=== PATIENT | female | born 1950 | race Caucasian/White ===

== ENCOUNTER 2017-05-22 10:00 | Outpatient (RCR) | payer MEDICARE, MEDICAID, SELFPAY ==
[2017-05-14 11:11] VITALS: BP 106/68; PULSE 79; RESP 18; TEMP 35.5; BMI 67.5
--- NOTE | 2017-05-14 15:19 | HP.PCM_ITS ---
(1) Cellulitis of leg, right Status: Chronic Code(s): L03.115 - CELLULITIS OF RIGHT LOWER LIMB (2) Sepsis Status: Resolved Code(s): A41.9 - SEPSIS, UNSPECIFIED ORGANISM (3) Benign hypertension Status: Chronic Code(s): I10 - ESSENTIAL (PRIMARY) HYPERTENSION (4) Diabetes mellitus Status: Chronic Code(s): E11.9 - TYPE 2 DIABETES MELLITUS WITHOUT COMPLICATIONS (5) HLD (hyperlipidemia) Status: Chronic Code(s): E78.5 - HYPERLIPIDEMIA, UNSPECIFIED (6) History of DVT of lower extremity Status: Chronic Code(s): Z86.718 - PERSONAL HISTORY OF OTHER VENOUS THROMBOSIS AND EMBOLISM (7) History of pulmonary embolism Status: Chronic Code(s): Z86.711 - PERSONAL HISTORY OF PULMONARY EMBOLISM (8) Hypothyroidism Status: Chronic Code(s): E03.9 - HYPOTHYROIDISM, UNSPECIFIED (9) Morbid obesity Status: Chronic Code(s): E66.01 - MORBID (SEVERE) OBESITY DUE TO EXCESS CALORIES History of Present Illness Date of Service: 05/21/17 Chief Complaint: Right lower extremity ulcer and cellulitis. History of Wound: Ms. Berrios is a 66-year-old who was referred here and is status post inpatient management for right lower extremity cellulitis and ulcer. She reports being in a stable state of health until about 2 weeks ago when she noted a blister in her right lower extremity and had been following up with her resource specialist teacher. However, it subsequently ruptured and she noted onset of chills, fever for which she was seen in the ER and subsequently hospitalized. She has done well since hospital discharge. She denies chills, fever, nausea, vomiting or foul-smelling discharge from the right lower extremity. She has home health care. She has bilateral lower extremity edema or and has a lymphedema pump however she has not been using this consistently recently. She has a history of diabetes however, she states good control of her blood sugars. Last A1c per patient was 6.1 and this was within the month. Past Medical History Past Medical History: Chronic Problems Benign hypertension (Chronic) Cellulitis of leg, right (Chronic) Chronic Lymphedema (Chronic) Diabetes mellitus (Chronic) GERD (gastroesophageal reflux disease) (Chronic) HLD (hyperlipidemia) (Chronic) History of DVT of lower extremity (Chronic) History of pulmonary embolism (Chronic) Hypothyroidism (Chronic) Morbid obesity (Chronic) Surgical History: appendectomy, hysterectomy, tonsillectomy Allergies/Adverse Reactions: Allergies No Known Allergies Allergy (Verified 05/04/17 18:17) Home Medications: Ambulatory Orders Medication Instructions Recorded Atorvastatin Calcium [Lipitor] 20 mg PO DAILY 09/18/14 Famotidine [Pepcid] 20 mg PO BID 09/18/14 Hydrocodone/Acetaminophen 1 each PO Q8H PRN PRN 09/18/14 [Hydrocodon-Acetaminophen 5-325] Levothyroxine Sodium [Levoxyl] 100 mcg PO DAILY 09/18/14 Lisinopril [Zestril] 20 mg PO DAILY 09/18/14 Metformin HCl [Glucophage] 500 mg PO BIDCM 09/18/14 Warfarin [Coumadin] 2 mg PO DAILY 09/18/14 Furosemide 60 mg PO DAILY 03/21/16 Gabapentin [Neurontin] 300 mg PO QHS 09/29/16 Collagenase [Santyl] 1 applic TOPICAL DAILY 05/04/17 Levofloxacin [Levaquin] 750 mg PO DAILY@0600 #5 tablet 05/08/17 Magnesium Oxide [Mag-Ox 400] 400 mg PO BIDCM tablet 05/08/17 - Family History Maternal Diabetes Paternal Diabetes Smoking Status: Never smoker Review of Systems Eyes: Denies: Pain, Redness HEENT: Denies: Difficulty Swallowing, Ear Pain, Eye Pain, Head Aches Cardiovascular: Denies: Chest Pain, Chest Pressure, Chest Tightness Respiratory: Denies: Cough, Hemoptysis, Pleuritic Pain Gastrointestinal: Denies: Abdominal Pain, Hematemesis, Nausea, Vomiting Skin: Reports: Wounds Neurological: Denies: Confusion, Difficulty swallowing, Focal weakness - Physical Exam Vital Signs Temp Pulse Resp BP Pulse Ox 95.9 F 79 18 106/68 05/14/17 11:11 05/14/17 11:11 05/14/17 11:11 05/14/17 11:11 General: Alert, Oriented x3, Cooperative, No apparent distress HEENT: Atraumatic, Normocephalic Oral: Dry Mucosa Neck: Supple, No Nodes Lungs: Clear to auscultation, Normal air movement Cardiovascular: Regular rate, Regular Rhythm, Normal S1, Normal S2 Abdomen: Soft, Non Tender, Obese Extremities: No clubbing, No cyanosis, Edema Skin: Ulcer/ Wound Wound Measurements and Assessment WC - Nurse 1 - General Ulcer Measurement Start: 05/14/17 11:08 Freq: Status: Active Activity Type Activity Date Activity User E-Sign Co-Sign Detail Recorded Client Recorded Date Recorded By Document 05/14/17 11:11 JT [id number] 05/14/17 11:34 JT 05/14/17 11:11 Wound Center Nurse 1 [Ulcer Assessment] #1 Posterior RLE Cluster -Combined with other wound No -Current Size (cm) - Length 3 -Current Size (cm) - Width 3.8 -Current Size (cm) - Depth 0.3 -Total Square Cm 11.4 -Date of Last Picture (Recall this 05/14/17 field) -Photo Taken Yes -Epithelialization None Present -Tunneling No -Undermining/Tunneling No -Circular Undermining No -Classification - Thickness Partial Thickness -Exudate Amt None Present (0 %) -Wound Margin Distinct, Outline Attached -Granulation Amt None Present (0 %) -Slough/Fibrin Yes -Necrosis Amt Large (67-100%) -Necrotic Tissue Type Adherent Slough -Structure Exposed N/A -Texture (Nettie-wound Skin Appearance) No Abnormality -Moisture (Nettie-wound Skin Appearance Dry/Scaly ) -Color (Nettie-wound Skin Appearance) Hemosiderin Staining -Temperature (Nettie-wound Skin No Abnormality Appearance) (Pt Warm) -Tenderness on Palpation (Nettie-wound No Skin Appearance) -Ulcer Cleansing Rinsed/ Irrigated with Saline -Foul Odor after Cleansing No -Anesthetic Used 4% Lidocaine Solution [Edema Assessment] -Lower Limb Edema Present Yes -Right Calf (cm) 83 -Right Ankle (cm) 45 -Left Calf (cm) 87 -Left Ankle (cm) 41 - Nurse 2 - General Ulcer CM Notes Start: 05/14/17 11:08 Freq: Status: Active Activity Type Activity Date Activity User E-Sign Co-Sign Detail Recorded Client Recorded Date Recorded By Document 05/14/17 12:13 DV [id number] 05/14/17 12:28 DV 05/14/17 12:13 Wound Center Nurse 2 [Procedure/Treatment] #1 Posterior RLE Cluster -Time 12:14 -Correct Patient Yes -Correct Side, Site, Position Yes -Correct Procedure Yes -Procedure Performed Yes -Type of Procedure Debridement -Clinical Debridement Subcutaneous -Post Debridement Size (cm) - Length 6.4 -Post Debridement Size (cm) - Width 3.2 -Post Debridement Size (cm) - Depth 0.5 -Total Square Cm 20.48 -Wound/Ulcer Outcome Not Healed -Ulcer Cleansing Rinsed/ Irrigated with Saline -Foul Odor after Cleansing No -Bioengineered Tissue No -Cetacaine [place] No -Bleeding Controlled with Pressure -Treatment Response Procedure Tolerated Well [See Physician Procedure note for Specifics] Pain Scale: 0-10 Numeric [Pain] -Is Patient Pain Free? Yes Debridement Note Post-Debridement Measurements/Treatment WC - Nurse 2 - General Ulcer CM Notes Start: 05/14/17 11:08 Freq: Status: Active Activity Type Activity Date Activity User E-Sign Co-Sign Detail Recorded Client Recorded Date Recorded By Document 05/14/17 12:13 DV [id number] 05/14/17 12:28 DV 05/14/17 12:13 Wound Center Nurse 2 #1 Posterior RLE Cluster -Time 12:14 -Correct Patient Yes -Correct Side, Site, Position Yes -Correct Procedure Yes -Procedure Performed Yes -Type of Procedure Debridement -Clinical Debridement Subcutaneous -Post Debridement Size (cm) - Length 6.4 -Post Debridement Size (cm) - Width 3.2 -Post Debridement Size (cm) - Depth 0.5 -Total Square Cm 20.48 -Wound/Ulcer Outcome Not Healed -Ulcer Cleansing Rinsed/ Irrigated with Saline -Foul Odor after Cleansing No -Bioengineered Tissue No -Cetacaine [place] No -Bleeding Controlled with Pressure -Treatment Response Procedure Tolerated Well Pain Scale: 0-10 Numeric Is Patient Pain Free? Yes Laterality: Right Type of Debridement: Excisional debridement Anesthesia Used: 4% Lidocaine Solution Depth: Down to and including healthy tissue, in the subcutaneous layer Percentage of wound debrided: 100 Instrument Used: 7mm curette Amount of bleeding with debridement: Mild Bleeding Controlled with: Pressure Patient tolerated procedure well Assessment/Plan Assessment: Right lower extremity cluster ulcers secondary to chronic stasis dermatitis. Plan: Wound was debrided using the 7 mm curette. Procedure was well-tolerated with minimal bleeding. Culture was obtained however I do not expect much as patient has just completed both inpatient and outpatient antibiotic therapy. Plan is for enzymatic debridement with Santyl daily with Adaptic covering. Patient encouraged to use her lymphedema pumps at least twice daily for 1 hour each. Elevate lower extremity. Protein rich diet. Continued glycemic control. Follow-up in 1 week.
[2017-05-22 09:39] VITALS: BP 117/63; PULSE 85; RESP 18; TEMP 36.5; BMI 67.5
--- NOTE | 2017-05-22 18:56 | PCM.WC.PN ---
(1) Cellulitis of leg, right Status: Chronic Code(s): L03.115 - Cellulitis of right lower limb (2) Diabetes mellitus Status: Chronic Code(s): E11.9 - Type 2 diabetes mellitus without complications (3) Hypothyroidism Status: Chronic Code(s): E03.9 - Hypothyroidism, unspecified (4) Morbid obesity Status: Chronic Code(s): E66.01 - Morbid (severe) obesity due to excess calories (5) Venous stasis ulcer of right lower leg with edema of right lower leg Status: Chronic Code(s): I83.891 - Varicose veins of right lower extremity with other complications; I83.018 - Varicose veins of right lower extremity with ulcer other part of lower leg; R60.9 - Edema, unspecified (6) Lymphedema of both lower extremities Status: Chronic Code(s): I89.0 - Lymphedema, not elsewhere classified Type of Wound Date of Service: 05/28/17 Chief Complaint: Right lower extremity ulcer and cellulitis. History of Wound: Ms. Berrios is a 66-year-old who was referred here and is status post inpatient management for right lower extremity cellulitis and ulcer. She reports being in a stable state of health until about 2 weeks ago when she noted a blister in her right lower extremity and had been following up with her satellite dish technician. However, it subsequently ruptured and she noted onset of chills, fever for which she was seen in the ER and subsequently hospitalized. She has done well since hospital discharge. She denies chills, fever, nausea, vomiting or foul-smelling discharge from the right lower extremity. She has home health care. She has bilateral lower extremity edema or and has a lymphedema pump however she has not been using this consistently recently. She has a history of diabetes however, she states good control of her blood sugars. Last A1c per patient was 6.1 and this was within the month. Progress of Wound: Stable. No new complaints at this time. - Physical Exam Vital Signs Temp Pulse Resp BP Pulse Ox 97.7 F 85 18 117/63 05/22/17 09:39 05/22/17 09:39 05/22/17 09:39 05/22/17 09:39 General: Alert, Oriented x3, Cooperative, No apparent distress HEENT: Atraumatic, Normocephalic Oral: Moist Mucosa Neck: Supple, No Nodes, No Nuchal Rigidity Lungs: Clear to auscultation, Normal air movement Cardiovascular: Regular rate, Regular Rhythm, Normal S1, Normal S2 Abdomen: Soft, Obese Extremities: No cyanosis, Edema Wound Measurements and Assessment WC - Nurse 1 - General Ulcer Measurement Start: 05/14/17 11:08 Freq: Status: Active Activity Type Activity Date Activity User E-Sign Co-Sign Detail Recorded Client Recorded Date Recorded By Document 05/22/17 09:39 DL [id number] 05/22/17 09:51 DL 05/22/17 09:39 Wound Center Nurse 1 [Ulcer Assessment] #1 Posterior RLE Cluster -Combined with other wound No -Current Size (cm) - Length 3.8 -Current Size (cm) - Width 3.6 -Current Size (cm) - Depth 0.5 -Total Square Cm 13.68 -Photo Taken No -Epithelialization None Present -Tunneling No -Undermining/Tunneling No -Circular Undermining No -Classification - Thickness Full Thickness without Exposed Support Structure -Exudate Amt Small (1-33%) -Exudate Type Serosanguineous -Wound Margin Distinct, Outline Attached -Granulation Amt None Present (0 %) -Granulation Quality N/A -Slough/Fibrin Yes -Necrosis Amt Large (67-100%) -Necrotic Tissue Type Adherent Slough -Structure Exposed Fascia Fat Layer Exposed -Texture (Nettie-wound Skin Appearance) Localized Edema Scarring -Moisture (Nettie-wound Skin Appearance No Abnormality ) -Color (Nettie-wound Skin Appearance) Erythema Hemosiderin Staining -Temperature (Nettie-wound Skin No Abnormality Appearance) (Pt Warm) -Tenderness on Palpation (Nettie-wound No Skin Appearance) -Ulcer Cleansing Rinsed/ Irrigated with Saline -Foul Odor after Cleansing No -Anesthetic Used 4% Lidocaine Solution [Edema Assessment] -Lower Limb Edema Present Yes -Right Calf (cm) 82.0 -Right Ankle (cm) 32.5 -Left Calf (cm) 89.0 -Left Ankle (cm) 39.5 WC - Nurse 2 - General Ulcer CM Notes Start: 05/14/17 11:08 Freq: Status: Active Activity Type Activity Date Activity User E-Sign Co-Sign Detail Recorded Client Recorded Date Recorded By Document 05/22/17 11:55 DV [id number] 05/22/17 12:00 DV 05/22/17 11:55 Wound Center Nurse 2 [Procedure/Treatment] #1 Posterior RLE Cluster -Time 11:56 -Correct Patient Yes -Correct Side, Site, Position Yes -Correct Procedure Yes -Procedure Performed Yes -Type of Procedure Debridement -Clinical Debridement Subcutaneous -Post Debridement Size (cm) - Length 5.0 -Post Debridement Size (cm) - Width 5.5 -Post Debridement Size (cm) - Depth 0.3 -Total Square Cm 27.50 -Wound/Ulcer Outcome Failed Graft -Ulcer Cleansing Rinsed/ Irrigated with Saline -Foul Odor after Cleansing No -Bioengineered Tissue No -Cetacaine [place] No -Bleeding Controlled with Pressure -Treatment Response Procedure Tolerated Well [See Physician Procedure note for Specifics] Pain Scale: 0-10 Numeric [Pain] -Is Patient Pain Free? Yes Neurological: Cranial nerves II-XII grossly intact, Neuro grossly intact Debridement Note Post-Debridement Measurements/Treatment WC - Nurse 2 - General Ulcer CM Notes Start: 05/14/17 11:08 Freq: Status: Active Activity Type Activity Date Activity User E-Sign Co-Sign Detail Recorded Client Recorded Date Recorded By Document 05/22/17 11:55 DV [id number] 05/22/17 12:00 DV 05/22/17 11:55 Wound Center Nurse 2 #1 Posterior E Cluster -Time 11:56 -Correct Patient Yes -Correct Side, Site, Position Yes -Correct Procedure Yes -Procedure Performed Yes -Type of Procedure Debridement -Clinical Debridement Subcutaneous -Post Debridement Size (cm) - Length 5.0 -Post Debridement Size (cm) - Width 5.5 -Post Debridement Size (cm) - Depth 0.3 -Total Square Cm 27.50 -Wound/Ulcer Outcome Failed Graft -Ulcer Cleansing Rinsed/ Irrigated with Saline -Foul Odor after Cleansing No -Bioengineered Tissue No -Cetacaine [place] No -Bleeding Controlled with Pressure -Treatment Response Procedure Tolerated Well Pain Scale: 0-10 Numeric Is Patient Pain Free? Yes Wound debrided: Right lower extremity venous stasis ulcer Type of Debridement: Excisional debridement Anesthesia Used: 5% Lidocaine Gel Depth: Down to and including healthy tissue, in the subcutaneous layer Percentage of wound debrided: 100 Instrument Used: 5mm curette Tissue Removed: Slough Amount of bleeding with debridement: Mild Bleeding Controlled with: Pressure Patient tolerated procedure well Assessment/Plan Assessment: Right lower extremity cluster ulcers secondary to chronic stasis dermatitis. Plan: Wound was debrided using the 5 mm curette. Procedure was well-tolerated with minimal bleeding. Culture from last visit was reviewed. No growth. Plan is to continue enzymatic debridement with Santyl daily with Adaptic covering. No graft application anticipated yet. Patient encouraged to use her lymphedema pumps at least twice daily for 1 hour each. Elevate lower extremity. Protein rich diet. Continued glycemic control. Follow-up in 1 week.
--- NOTE | 2017-05-22 19:02 | PN.PCM_ITS ---
(1) Cellulitis of leg, right Status: Chronic Code(s): L03.115 - Cellulitis of right lower limb (2) Diabetes mellitus Status: Chronic Code(s): E11.9 - Type 2 diabetes mellitus without complications (3) Hypothyroidism Status: Chronic Code(s): E03.9 - Hypothyroidism, unspecified (4) Morbid obesity Status: Chronic Code(s): E66.01 - Morbid (severe) obesity due to excess calories (5) Venous stasis ulcer of right lower leg with edema of right lower leg Status: Chronic Code(s): I83.891 - Varicose veins of right lower extremity with other complications; I83.018 - Varicose veins of right lower extremity with ulcer other part of lower leg; R60.9 - Edema, unspecified (6) Lymphedema of both lower extremities Status: Chronic Code(s): I89.0 - Lymphedema, not elsewhere classified Type of Wound Date of Service: 05/28/17 Chief Complaint: Right lower extremity ulcer and cellulitis. History of Wound: Ms. Berrios is a 66-year-old who was referred here and is status post inpatient management for right lower extremity cellulitis and ulcer. She reports being in a stable state of health until about 2 weeks ago when she noted a blister in her right lower extremity and had been following up with her music director. However, it subsequently ruptured and she noted onset of chills, fever for which she was seen in the ER and subsequently hospitalized. She has done well since hospital discharge. She denies chills, fever, nausea, vomiting or foul-smelling discharge from the right lower extremity. She has home health care. She has bilateral lower extremity edema or and has a lymphedema pump however she has not been using this consistently recently. She has a history of diabetes however, she states good control of her blood sugars. Last A1c per patient was 6.1 and this was within the month. Progress of Wound: Stable. No new complaints at this time. - Physical Exam Vital Signs Temp Pulse Resp BP Pulse Ox 97.7 F 85 18 117/63 05/22/17 09:39 05/22/17 09:39 05/22/17 09:39 05/22/17 09:39 General: Alert, Oriented x3, Cooperative, No apparent distress HEENT: Atraumatic, Normocephalic Oral: Moist Mucosa Neck: Supple, No Nodes, No Nuchal Rigidity Lungs: Clear to auscultation, Normal air movement Cardiovascular: Regular rate, Regular Rhythm, Normal S1, Normal S2 Abdomen: Soft, Obese Extremities: No cyanosis, Edema Wound Measurements and Assessment WC - Nurse 1 - General Ulcer Measurement Start: 05/14/17 11:08 Freq: Status: Active Activity Type Activity Date Activity User E-Sign Co-Sign Detail Recorded Client Recorded Date Recorded By Document 05/22/17 09:39 DL [id number] 05/22/17 09:51 DL 05/22/17 09:39 Wound Center Nurse 1 [Ulcer Assessment] #1 Posterior RLE Cluster -Combined with other wound No -Current Size (cm) - Length 3.8 -Current Size (cm) - Width 3.6 -Current Size (cm) - Depth 0.5 -Total Square Cm 13.68 -Photo Taken No -Epithelialization None Present -Tunneling No -Undermining/Tunneling No -Circular Undermining No -Classification - Thickness Full Thickness without Exposed Support Structure -Exudate Amt Small (1-33%) -Exudate Type Serosanguineous -Wound Margin Distinct, Outline Attached -Granulation Amt None Present (0 %) -Granulation Quality N/A -Slough/Fibrin Yes -Necrosis Amt Large (67-100%) -Necrotic Tissue Type Adherent Slough -Structure Exposed Fascia Fat Layer Exposed -Texture (Nettie-wound Skin Appearance) Localized Edema Scarring -Moisture (Nettie-wound Skin Appearance No Abnormality ) -Color (Nettie-wound Skin Appearance) Erythema Hemosiderin Staining -Temperature (Nettie-wound Skin No Abnormality Appearance) (Pt Warm) -Tenderness on Palpation (Nettie-wound No Skin Appearance) -Ulcer Cleansing Rinsed/ Irrigated with Saline -Foul Odor after Cleansing No -Anesthetic Used 4% Lidocaine Solution [Edema Assessment] -Lower Limb Edema Present Yes -Right Calf (cm) 82.0 -Right Ankle (cm) 32.5 -Left Calf (cm) 89.0 -Left Ankle (cm) 39.5 WC - Nurse 2 - General Ulcer CM Notes Start: 05/14/17 11:08 Freq: Status: Active Activity Type Activity Date Activity User E-Sign Co-Sign Detail Recorded Client Recorded Date Recorded By Document 05/22/17 11:55 DV [id number] 05/22/17 12:00 DV 05/22/17 11:55 Wound Center Nurse 2 [Procedure/Treatment] #1 Posterior RLE Cluster -Time 11:56 -Correct Patient Yes -Correct Side, Site, Position Yes -Correct Procedure Yes -Procedure Performed Yes -Type of Procedure Debridement -Clinical Debridement Subcutaneous -Post Debridement Size (cm) - Length 5.0 -Post Debridement Size (cm) - Width 5.5 -Post Debridement Size (cm) - Depth 0.3 -Total Square Cm 27.50 -Wound/Ulcer Outcome Failed Graft -Ulcer Cleansing Rinsed/ Irrigated with Saline -Foul Odor after Cleansing No -Bioengineered Tissue No -Cetacaine [place] No -Bleeding Controlled with Pressure -Treatment Response Procedure Tolerated Well [See Physician Procedure note for Specifics] Pain Scale: 0-10 Numeric [Pain] -Is Patient Pain Free? Yes Neurological: Cranial nerves II-XII grossly intact, Neuro grossly intact Debridement Note Post-Debridement Measurements/Treatment WC - Nurse 2 - General Ulcer CM Notes Start: 05/14/17 11:08 Freq: Status: Active Activity Type Activity Date Activity User E-Sign Co-Sign Detail Recorded Client Recorded Date Recorded By Document 05/22/17 11:55 DV [id number] 05/22/17 12:00 DV 05/22/17 11:55 Wound Center Nurse 2 #1 Posterior E Cluster -Time 11:56 -Correct Patient Yes -Correct Side, Site, Position Yes -Correct Procedure Yes -Procedure Performed Yes -Type of Procedure Debridement -Clinical Debridement Subcutaneous -Post Debridement Size (cm) - Length 5.0 -Post Debridement Size (cm) - Width 5.5 -Post Debridement Size (cm) - Depth 0.3 -Total Square Cm 27.50 -Wound/Ulcer Outcome Failed Graft -Ulcer Cleansing Rinsed/ Irrigated with Saline -Foul Odor after Cleansing No -Bioengineered Tissue No -Cetacaine [place] No -Bleeding Controlled with Pressure -Treatment Response Procedure Tolerated Well Pain Scale: 0-10 Numeric Is Patient Pain Free? Yes Wound debrided: Right lower extremity venous stasis ulcer Type of Debridement: Excisional debridement Anesthesia Used: 5% Lidocaine Gel Depth: Down to and including healthy tissue, in the subcutaneous layer Percentage of wound debrided: 100 Instrument Used: 5mm curette Tissue Removed: Slough Amount of bleeding with debridement: Mild Bleeding Controlled with: Pressure Patient tolerated procedure well Assessment/Plan Assessment: Right lower extremity cluster ulcers secondary to chronic stasis dermatitis. Plan: Wound was debrided using the 5 mm curette. Procedure was well-tolerated with minimal bleeding. Culture from last visit was reviewed. No growth. Plan is to continue enzymatic debridement with Santyl daily with Adaptic covering. No graft application anticipated yet. Patient encouraged to use her lymphedema pumps at least twice daily for 1 hour each. Elevate lower extremity. Protein rich diet. Continued glycemic control. Follow-up in 1 week.
== END 2017-05-22 23:59 ==
LOC: WC 10:00
PROVIDERS: Family Provider Internal Medicine; PCP Internal Medicine; Visit Provider Internal Medicine
DX: E11.622 Type 2 diabetes mellitus with other skin ulcer (principal); I10 Essential (primary) hypertension; L97.812 Non-pressure chronic ulcer of other part of right lower leg with fat layer exposed; I83.018 Varicose veins of right lower extremity with ulcer other part of lower leg; E78.5 Hyperlipidemia, unspecified; E66.01 Morbid (severe) obesity due to excess calories; K21.9 Gastro-esophageal reflux disease without esophagitis; I89.0 Lymphedema, not elsewhere classified; Z86.711 Personal history of pulmonary embolism; Z86.718 Personal history of other venous thrombosis and embolism; Z68.44 Body mass index [BMI] 60.0-69.9, adult; Z71.3 Dietary counseling and surveillance; Z79.899 Other long term (current) drug therapy
CPT/HCPCS: 11042; 11045; 87070; 87075; 87205; 97602; 99213; G0463

== ENCOUNTER 2017-06-19 12:00 | Outpatient (RCR) | payer MEDICARE, MEDICAID, SELFPAY ==
[2017-05-25 01:12] VITALS: BP 117/63; PULSE 85; RESP 18; TEMP 36.5; BMI 67.5
[2017-05-29 10:19] VITALS: BP 143/68; PULSE 82; RESP 20; TEMP 36.4; BMI 67.5
--- NOTE | 2017-05-29 17:14 | PCM.WC.PN ---
(1) Venous stasis ulcer of left lower leg with edema of left lower leg Status: Chronic Current Visit: Yes Code(s): I83.892 - Varicose veins of left lower extremity with other complications; I83.028 - Varicose veins of left lower extremity with ulcer other part of lower leg; R60.9 - Edema, unspecified (2) Chronic Lymphedema Status: Chronic Current Visit: Yes (3) Diabetes mellitus Status: Chronic Current Visit: Yes Code(s): E11.9 - Type 2 diabetes mellitus without complications (4) Morbid obesity Status: Chronic Current Visit: Yes Code(s): E66.01 - Morbid (severe) obesity due to excess calories (5) Venous stasis ulcer of right lower leg with edema of right lower leg Status: Chronic Current Visit: Yes Code(s): I83.891 - Varicose veins of right lower extremity with other complications; I83.018 - Varicose veins of right lower extremity with ulcer other part of lower leg; R60.9 - Edema, unspecified (6) Unspecified open wound, left thigh, initial encounter Status: Acute Current Visit: Yes Code(s): S71.102A - Unspecified open wound, left thigh, initial encounter Type of Wound Date of Service: 05/30/17 Chief Complaint: Right lower extremity ulcer and cellulitis. History of Wound: Ms. Berrios is a 66-year-old who was referred here and is status post inpatient management for right lower extremity cellulitis and ulcer. 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 However, it subsequently ruptured and she noted onset of chills, fever for which she was seen in the ER and subsequently hospitalized. She has done well since hospital discharge. She denies chills, fever, nausea, vomiting or foul-smelling discharge from the right lower extremity. She has home health care. She has bilateral lower extremity edema or and has a lymphedema pump however she has not been using this consistently recently. She has a history of diabetes however, she states good control of her blood sugars. Last A1c per patient was 6.1 and this was within the month. Progress of Wound: She is here for management of her chronic bilateral stasis dermatitis ulcers however, she presents with a new right thigh wound. She states she sustained a burn after she dropped a hard object on her thigh. She has done nothing to the wound since sustaining it. She feels well otherwise and denies any other complaints at this time. - Physical Exam Vital Signs Temp Pulse Resp BP 97.5 F L 82 20 H 143/68 H 05/29/17 10:19 05/29/17 10:19 05/29/17 10:19 05/29/17 10:19 General: Alert, Oriented x3, Cooperative, No apparent distress HEENT: Atraumatic Oral: Moist Mucosa Neck: Supple, No JVD Lungs: Normal air movement Cardiovascular: Regular rate Abdomen: Soft Extremities: No cyanosis, Edema Wound Measurements and Assessment WC - Nurse 1 - General Ulcer Measurement Start: 05/29/17 10:14 Freq: Status: Active Protocol: Activity Type Activity Date Activity User E-Sign Co-Sign Detail Recorded Client Recorded Date Recorded By Document 05/29/17 10:19 [facility] [id number] 05/29/17 10:26 [facility] 05/29/17 10:19 Wound Center Nurse 1 [Ulcer Assessment Protocol: WC.WD.LOC] #3- LT MEDIAL LOWER LEG -Combined with other wound No -Current Size (cm) - Length 1 -Current Size (cm) - Width 1.6 -Current Size (cm) - Depth 0.1 -Total Square Cm 1.6 -Date of Last Picture (Recall this 05/29/17 field) -Photo Taken Yes -Epithelialization None Present -Tunneling No -Undermining/Tunneling No -Exudate Amt None Present (0 %) -Wound Margin Distinct, Outline Attached -Granulation Amt None Present (0 %) -Necrosis Amt Large (67-100%) -Necrotic Tissue Type Adherent Slough -Structure Exposed N/A -Texture (Nettie-wound Skin Appearance) Scarring -Moisture (Nettie-wound Skin Appearance Dry/Scaly ) -Color (Nettie-wound Skin Appearance) Hemosiderin Staining -Temperature (Nettie-wound Skin No Abnormality Appearance) (Pt Warm) -Tenderness on Palpation (Nettie-wound No Skin Appearance) -Ulcer Cleansing Rinsed/ Irrigated with Saline -Foul Odor after Cleansing No -Anesthetic Used 4% Lidocaine Solution #2- RT THIGH (POST BURN W/ HOT WATER) -Combined with other wound No -Current Size (cm) - Length 3 -Current Size (cm) - Width 1.6 -Current Size (cm) - Depth 0.1 -Total Square Cm 4.8 -Date of Last Picture (Recall this 05/29/17 field) -Photo Taken Yes -Epithelialization None Present -Tunneling No -Undermining/Tunneling No -Exudate Amt None Present (0 %) -Wound Margin Distinct, Outline Attached -Granulation Amt None Present (0 %) -Slough/Fibrin Yes -Necrosis Amt Large (67-100%) -Necrotic Tissue Type Adherent Slough -Structure Exposed N/A -Texture (Nettie-wound Skin Appearance) Scarring -Moisture (Nettie-wound Skin Appearance Assessed ) -Color (Nettie-wound Skin Appearance) Erythema -Temperature (Nettie-wound Skin No Abnormality Appearance) (Pt Warm) -Tenderness on Palpation (Nettie-wound No Skin Appearance) -Ulcer Cleansing Rinsed/ Irrigated with Saline -Foul Odor after Cleansing No -Anesthetic Used 4% Lidocaine Solution #1 Posterior RLE Cluster -Combined with other wound No -Current Size (cm) - Length 3.9 -Current Size (cm) - Width 3.2 -Current Size (cm) - Depth 0.5 -Total Square Cm 12.48 -Photo Taken No -Tunneling No -Undermining/Tunneling No -Exudate Amt None Present (0 %) -Wound Margin Distinct, Outline Attached -Granulation Amt Small (1-33%) -Granulation Quality [place] -Slough/Fibrin Yes -Necrosis Amt Large (67-100%) -Necrotic Tissue Type Adherent Slough -Structure Exposed N/A -Texture (Nettie-wound Skin Appearance) Scarring -Moisture (Nettie-wound Skin Appearance Dry/Scaly ) -Color (Nettie-wound Skin Appearance) Hemosiderin Staining -Temperature (Nettie-wound Skin No Abnormality Appearance) (Pt Warm) -Tenderness on Palpation (Nettie-wound No Skin Appearance) -Ulcer Cleansing Rinsed/ Irrigated with Saline -Foul Odor after Cleansing No -Anesthetic Used 4% Lidocaine Solution [Edema Assessment] -Lower Limb Edema Present Yes -Right Calf (cm) 82 -Right Ankle (cm) 37 -Left Calf (cm) 90 -Left Ankle (cm) 38 WC - Nurse 2 - General Ulcer CM Notes Start: 05/29/17 10:14 Freq: Status: Active Protocol: Activity Type Activity Date Activity User E-Sign Co-Sign Detail Recorded Client Recorded Date Recorded By Document 05/29/17 11:46 DV [id number] 05/29/17 11:53 DV 05/29/17 11:46 Wound Center Nurse 2 [Procedure/Treatment] #3- LT MEDIAL LOWER LEG -Time 11:47 -Correct Patient Yes -Correct Side, Site, Position Yes -Correct Procedure Yes -Procedure Performed Yes -Type of Procedure Debridement -Clinical Debridement Subcutaneous -Post Debridement Size (cm) - Length 2.0 -Post Debridement Size (cm) - Width 2.0 -Post Debridement Size (cm) - Depth 0.1 -Total Square Cm 4.00 -Wound/Ulcer Outcome Not Healed -Ulcer Cleansing Rinsed/ Irrigated with Saline -Foul Odor after Cleansing No -Bioengineered Tissue No -Cetacaine [place] No -Bleeding Controlled with Pressure -Treatment Response Procedure Tolerated Well #2- RT THIGH (POST BURN W/ HOT WATER) -Time 11:49 -Correct Patient Yes -Correct Side, Site, Position Yes -Correct Procedure Yes -Procedure Performed No -Post Debridement Size (cm) - Length 3.0 -Post Debridement Size (cm) - Width 1.6 -Post Debridement Size (cm) - Depth 0.1 -Total Square Cm 4.80 -Bleeding Controlled with NA #1 Posterior RLE Cluster -Time 11:48 -Correct Patient Yes -Correct Side, Site, Position Yes -Correct Procedure Yes -Procedure Performed Yes -Type of Procedure Debridement -Clinical Debridement Subcutaneous -Post Debridement Size (cm) - Length 4.0 -Post Debridement Size (cm) - Width 4.0 -Post Debridement Size (cm) - Depth 0.5 -Total Square Cm 16.00 -Wound/Ulcer Outcome Not Healed -Ulcer Cleansing Rinsed/ Irrigated with Saline -Foul Odor after Cleansing No -Bioengineered Tissue No -Cetacaine [place] No -Bleeding Controlled with Pressure -Treatment Response Procedure Tolerated Well [See Physician Procedure note for Specifics] Pain Scale: 0-10 Numeric [Pain] -Is Patient Pain Free? Yes Musculoskeletal: No Muscle Wasting Neurological: Cranial nerves II-XII grossly intact Psych/Mental Status: Alert and oriented to time, place, person, mood and affect Debridement Note Post-Debridement Measurements/Treatment WC - Nurse 2 - General Ulcer CM Notes Start: 05/29/17 10:14 Freq: Status: Active Protocol: Activity Type Activity Date Activity User E-Sign Co-Sign Detail Recorded Client Recorded Date Recorded By Document 05/29/17 11:46 DV [id number] 05/29/17 11:53 DV 05/29/17 11:46 Wound Center Nurse 2 #3- LT MEDIAL LOWER LEG -Time 11:47 -Correct Patient Yes -Correct Side, Site, Position Yes -Correct Procedure Yes -Procedure Performed Yes -Type of Procedure Debridement -Clinical Debridement Subcutaneous -Post Debridement Size (cm) - Length 2.0 -Post Debridement Size (cm) - Width 2.0 -Post Debridement Size (cm) - Depth 0.1 -Total Square Cm 4.00 -Wound/Ulcer Outcome Not Healed -Ulcer Cleansing Rinsed/ Irrigated with Saline -Foul Odor after Cleansing No -Bioengineered Tissue No -Cetacaine [place] No -Bleeding Controlled with Pressure -Treatment Response Procedure Tolerated Well #2- RT THIGH (POST BURN W/ HOT WATER) -Time 11:49 -Correct Patient Yes -Correct Side, Site, Position Yes -Correct Procedure Yes -Procedure Performed No -Post Debridement Size (cm) - Length 3.0 -Post Debridement Size (cm) - Width 1.6 -Post Debridement Size (cm) - Depth 0.1 -Total Square Cm 4.80 -Bleeding Controlled with NA #1 Posterior RLE Cluster -Time 11:48 -Correct Patient Yes -Correct Side, Site, Position Yes -Correct Procedure Yes -Procedure Performed Yes -Type of Procedure Debridement -Clinical Debridement Subcutaneous -Post Debridement Size (cm) - Length 4.0 -Post Debridement Size (cm) - Width 4.0 -Post Debridement Size (cm) - Depth 0.5 -Total Square Cm 16.00 -Wound/Ulcer Outcome Not Healed -Ulcer Cleansing Rinsed/ Irrigated with Saline -Foul Odor after Cleansing No -Bioengineered Tissue No -Cetacaine [place] No -Bleeding Controlled with Pressure -Treatment Response Procedure Tolerated Well Pain Scale: 0-10 Numeric Is Patient Pain Free? Yes Wound debrided: Right Venous stasis ulcer Type of Debridement: Excisional debridement Anesthesia Used: 4% Lidocaine Solution Depth: Down to and including healthy tissue, in the subcutaneous layer Percentage of wound debrided: 100 Instrument Used: 5mm curette Tissue Removed: Adherent Slough, Biofilm Amount of bleeding with debridement: Mild Bleeding Controlled with: Pressure Patient tolerated procedure well - Additional Wound Wound debrided: Left Venous Stasis Ulcer Type of Debridement: Excisional debridement Anesthesia Used: 4% Lidocaine Solution Depth: Down to and including healthy tissue, in the subcutaneous layer Percentage of wound debrided: 100 Instrument Used: 5mm curette Tissue Removed: Slough Amount of bleeding with debridement: Mild Bleeding Controlled with: Pressure Patient tolerated procedure: Patient tolerated procedure well Assessment/Plan Active Problems Chronic Lymphedema (Chronic) Diabetes mellitus (Chronic) Morbid obesity (Chronic) Venous stasis ulcer of right lower leg with edema of right lower leg (Chronic) Venous stasis ulcer of left lower leg with edema of left lower leg (Chronic) Unspecified open wound, left thigh, initial encounter (Acute) Assessment: Right lower extremity cluster ulcers secondary to chronic stasis dermatitis. Plan: Both lower extremity wounds were debrided 5 mm curet. Procedure was well-tolerated. Continue Santyl daily to right venous stasis ulcer wound with Adaptic covering. SilverCel dresing to the left lower extremity venous stasis ulcer and right thigh wound. Continue Optimal blood sugar control. Patient encouraged to use her lymphedema pumps at least twice daily for 1 hour each. Elevate lower extremity. Protein rich diet. Continued glycemic control. Follow-up in 1 week. This note was generated with [employer] dictation software. It may contain incorrect words, spelling, and punctuation that were not noted in checking the note before signing.
--- NOTE | 2017-05-29 17:23 | PN.PCM_ITS ---
(1) Venous stasis ulcer of left lower leg with edema of left lower leg Status: Chronic Current Visit: Yes Code(s): I83.892 - Varicose veins of left lower extremity with other complications; I83.028 - Varicose veins of left lower extremity with ulcer other part of lower leg; R60.9 - Edema, unspecified (2) Chronic Lymphedema Status: Chronic Current Visit: Yes (3) Diabetes mellitus Status: Chronic Current Visit: Yes Code(s): E11.9 - Type 2 diabetes mellitus without complications (4) Morbid obesity Status: Chronic Current Visit: Yes Code(s): E66.01 - Morbid (severe) obesity due to excess calories (5) Venous stasis ulcer of right lower leg with edema of right lower leg Status: Chronic Current Visit: Yes Code(s): I83.891 - Varicose veins of right lower extremity with other complications; I83.018 - Varicose veins of right lower extremity with ulcer other part of lower leg; R60.9 - Edema, unspecified (6) Unspecified open wound, left thigh, initial encounter Status: Acute Current Visit: Yes Code(s): S71.102A - Unspecified open wound , left thigh, initial encounter Type of Wound Date of Service: 05/30/17 Chief Complaint: Right lower extremity ulcer and cellulitis. History of Wound: Ms. Berrios is a 66-year-old who was referred here and is status post inpatient management for right lower extremity cellulitis and ulcer. 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 However, it subsequently ruptured and she noted onset of chills, fever for which she was seen in the ER and subsequently hospitalized. She has done well since hospital discharge. She denies chills, fever, nausea, vomiting or foul-smelling discharge from the right lower extremity. She has home health care. She has bilateral lower extremity edema or and has a lymphedema pump however she has not been using this consistently recently. She has a history of diabetes however, she states good control of her blood sugars. Last A1c per patient was 6.1 and this was within the month. Progress of Wound: She is here for management of her chronic bilateral stasis dermatitis ulcers however, she presents with a new right thigh wound. She states she sustained a burn after she dropped a hard object on her thigh. She has done nothing to the wound since sustaining it. She feels well otherwise and denies any other complaints at this time. - Physical Exam Vital Signs Temp Pulse Resp BP 97.5 F L 82 20 H 143/68 H 05/29/17 10:19 05/29/17 10:19 05/29/17 10:19 05/29/17 10:19 General: Alert, Oriented x3, Cooperative, No apparent distress HEENT: Atraumatic Oral: Moist Mucosa Neck: Supple, No JVD Lungs: Normal air movement Cardiovascular: Regular rate Abdomen: Soft Extremities: No cyanosis, Edema Wound Measurements and Assessment WC - Nurse 1 - General Ulcer Measurement Start: 05/29/17 10:14 Freq: Status: Active Protocol: Activity Type Activity Date Activity User E-Sign Co-Sign Detail Recorded Client Recorded Date Recorded By Document 05/29/17 10:19 [facility] [id number] 05/29/17 10:26 [facility] 05/29/17 10:19 Wound Center Nurse 1 [Ulcer Assessment Protocol: WC.WD.LOC] #3- LT MEDIAL LOWER LEG -Combined with other wound No -Current Size (cm) - Length 1 -Current Size (cm) - Width 1.6 -Current Size (cm) - Depth 0.1 -Total Square Cm 1.6 -Date of Last Picture (Recall this 05/29/17 field) -Photo Taken Yes -Epithelialization None Present -Tunneling No -Undermining/Tunneling No -Exudate Amt None Present (0 %) -Wound Margin Distinct, Outline Attached -Granulation Amt None Present (0 %) -Necrosis Amt Large (67-100%) -Necrotic Tissue Type Adherent Slough -Structure Exposed N/A -Texture (Nettie-wound Skin Appearance) Scarring -Moisture (Nettie-wound Skin Appearance Dry/Scaly ) -Color (Nettie-wound Skin Appearance) Hemosiderin Staining -Temperature (Nettie-wound Skin No Abnormality Appearance) (Pt Warm) -Tenderness on Palpation (Nettie-wound No Skin Appearance) -Ulcer Cleansing Rinsed/ Irrigated with Saline -Foul Odor after Cleansing No -Anesthetic Used 4% Lidocaine Solution #2- RT THIGH (POST BURN W/ HOT WATER) -Combined with other wound No -Current Size (cm) - Length 3 -Current Size (cm) - Width 1.6 -Current Size (cm) - Depth 0.1 -Total Square Cm 4.8 -Date of Last Picture (Recall this 05/29/17 field) -Photo Taken Yes -Epithelialization None Present -Tunneling No -Undermining/Tunneling No -Exudate Amt None Present (0 %) -Wound Margin Distinct, Outline Attached -Granulation Amt None Present (0 %) -Slough/Fibrin Yes -Necrosis Amt Large (67-100%) -Necrotic Tissue Type Adherent Slough -Structure Exposed N/A -Texture (Nettie-wound Skin Appearance) Scarring -Moisture (Nettie-wound Skin Appearance Assessed ) -Color (Nettie-wound Skin Appearance) Erythema -Temperature (Nettie-wound Skin No Abnormality Appearance) (Pt Warm) -Tenderness on Palpation (Nettie-wound No Skin Appearance) -Ulcer Cleansing Rinsed/ Irrigated with Saline -Foul Odor after Cleansing No -Anesthetic Used 4% Lidocaine Solution #1 Posterior RLE Cluster -Combined with other wound No -Current Size (cm) - Length 3.9 -Current Size (cm) - Width 3.2 -Current Size (cm) - Depth 0.5 -Total Square Cm 12.48 -Photo Taken No -Tunneling No -Undermining/Tunneling No -Exudate Amt None Present (0 %) -Wound Margin Distinct, Outline Attached -Granulation Amt Small (1-33%) -Granulation Quality [place] -Slough/Fibrin Yes -Necrosis Amt Large (67-100%) -Necrotic Tissue Type Adherent Slough -Structure Exposed N/A -Texture (Nettie-wound Skin Appearance) Scarring -Moisture (Nettie-wound Skin Appearance Dry/Scaly ) -Color (Nettie-wound Skin Appearance) Hemosiderin Staining -Temperature (Nettie-wound Skin No Abnormality Appearance) (Pt Warm) -Tenderness on Palpation (Nettie-wound No Skin Appearance) -Ulcer Cleansing Rinsed/ Irrigated with Saline -Foul Odor after Cleansing No -Anesthetic Used 4% Lidocaine Solution [Edema Assessment] -Lower Limb Edema Present Yes -Right Calf (cm) 82 -Right Ankle (cm) 37 -Left Calf (cm) 90 -Left Ankle (cm) 38 WC - Nurse 2 - General Ulcer CM Notes Start: 05/29/17 10:14 Freq: Status: Active Protocol: Activity Type Activity Date Activity User E-Sign Co-Sign Detail Recorded Client Recorded Date Recorded By Document 05/29/17 11:46 DV [id number] 05/29/17 11:53 DV 05/29/17 11:46 Wound Center Nurse 2 [Procedure/Treatment] #3- LT MEDIAL LOWER LEG -Time 11:47 -Correct Patient Yes -Correct Side, Site, Position Yes -Correct Procedure Yes -Procedure Performed Yes -Type of Procedure Debridement -Clinical Debridement Subcutaneous -Post Debridement Size (cm) - Length 2.0 -Post Debridement Size (cm) - Width 2.0 -Post Debridement Size (cm) - Depth 0.1 -Total Square Cm 4.00 -Wound/Ulcer Outcome Not Healed -Ulcer Cleansing Rinsed/ Irrigated with Saline -Foul Odor after Cleansing No -Bioengineered Tissue No -Cetacaine [place] No -Bleeding Controlled with Pressure -Treatment Response Procedure Tolerated Well #2- RT THIGH (POST BURN W/ HOT WATER) -Time 11:49 -Correct Patient Yes -Correct Side, Site, Position Yes -Correct Procedure Yes -Procedure Performed No -Post Debridement Size (cm) - Length 3.0 -Post Debridement Size (cm) - Width 1.6 -Post Debridement Size (cm) - Depth 0.1 -Total Square Cm 4.80 -Bleeding Controlled with NA #1 Posterior RLE Cluster -Time 11:48 -Correct Patient Yes -Correct Side, Site, Position Yes -Correct Procedure Yes -Procedure Performed Yes -Type of Procedure Debridement -Clinical Debridement Subcutaneous -Post Debridement Size (cm) - Length 4.0 -Post Debridement Size (cm) - Width 4.0 -Post Debridement Size (cm) - Depth 0.5 -Total Square Cm 16.00 -Wound/Ulcer Outcome Not Healed -Ulcer Cleansing Rinsed/ Irrigated with Saline -Foul Odor after Cleansing No -Bioengineered Tissue No -Cetacaine [place] No -Bleeding Controlled with Pressure -Treatment Response Procedure Tolerated Well [See Physician Procedure note for Specifics] Pain Scale: 0-10 Numeric [Pain] -Is Patient Pain Free? Yes Musculoskeletal: No Muscle Wasting Neurological: Cranial nerves II-XII grossly intact Psych/Mental Status: Alert and oriented to time, place, person, mood and affect Debridement Note Post-Debridement Measurements/Treatment WC - Nurse 2 - General Ulcer CM Notes Start: 05/29/17 10:14 Freq: Status: Active Protocol: Activity Type Activity Date Activity User E-Sign Co-Sign Detail Recorded Client Recorded Date Recorded By Document 05/29/17 11:46 DV [id number] 05/29/17 11:53 DV 05/29/17 11:46 Wound Center Nurse 2 #3- LT MEDIAL LOWER LEG -Time 11:47 -Correct Patient Yes -Correct Side, Site, Position Yes -Correct Procedure Yes -Procedure Performed Yes -Type of Procedure Debridement -Clinical Debridement Subcutaneous -Post Debridement Size (cm) - Length 2.0 -Post Debridement Size (cm) - Width 2.0 -Post Debridement Size (cm) - Depth 0.1 -Total Square Cm 4.00 -Wound/Ulcer Outcome Not Healed -Ulcer Cleansing Rinsed/ Irrigated with Saline -Foul Odor after Cleansing No -Bioengineered Tissue No -Cetacaine [place] No -Bleeding Controlled with Pressure -Treatment Response Procedure Tolerated Well #2- RT THIGH (POST BURN W/ HOT WATER) -Time 11:49 -Correct Patient Yes -Correct Side, Site, Position Yes -Correct Procedure Yes -Procedure Performed No -Post Debridement Size (cm) - Length 3.0 -Post Debridement Size (cm) - Width 1.6 -Post Debridement Size (cm) - Depth 0.1 -Total Square Cm 4.80 -Bleeding Controlled with NA #1 Posterior RLE Cluster -Time 11:48 -Correct Patient Yes -Correct Side, Site, Position Yes -Correct Procedure Yes -Procedure Performed Yes -Type of Procedure Debridement -Clinical Debridement Subcutaneous -Post Debridement Size (cm) - Length 4.0 -Post Debridement Size (cm) - Width 4.0 -Post Debridement Size (cm) - Depth 0.5 -Total Square Cm 16.00 -Wound/Ulcer Outcome Not Healed -Ulcer Cleansing Rinsed/ Irrigated with Saline -Foul Odor after Cleansing No -Bioengineered Tissue No -Cetacaine [place] No -Bleeding Controlled with Pressure -Treatment Response Procedure Tolerated Well Pain Scale: 0-10 Numeric Is Patient Pain Free? Yes Wound debrided: Right Venous stasis ulcer Type of Debridement: Excisional debridement Anesthesia Used: 4% Lidocaine Solution Depth: Down to and including healthy tissue, in the subcutaneous layer Percentage of wound debrided: 100 Instrument Used: 5mm curette Tissue Removed: Adherent Slough, Biofilm Amount of bleeding with debridement: Mild Bleeding Controlled with: Pressure Patient tolerated procedure well - Additional Wound Wound debrided: Left Venous Stasis Ulcer Type of Debridement: Excisional debridement Anesthesia Used: 4% Lidocaine Solution Depth: Down to and including healthy tissue, in the subcutaneous layer Percentage of wound debrided: 100 Instrument Used: 5mm curette Tissue Removed: Slough Amount of bleeding with debridement: Mild Bleeding Controlled with: Pressure Patient tolerated procedure: Patient tolerated procedure well Assessment/Plan Active Problems Chronic Lymphedema (Chronic) Diabetes mellitus (Chronic) Morbid obesity (Chronic) Venous stasis ulcer of right lower leg with edema of right lower leg (Chronic) Venous stasis ulcer of left lower leg with edema of left lower leg (Chronic) Unspecified open wound, left thigh, initial encounter (Acute) Assessment: Right lower extremity cluster ulcers secondary to chronic stasis dermatitis. Plan: Both lower extremity wounds were debrided 5 mm curet. Procedure was well- tolerated. Continue Santyl daily to right venous stasis ulcer wound with Adaptic covering. SilverCel dresing to the left lower extremity venous stasis ulcer and right thigh wound. Continue Optimal blood sugar control. Patient encouraged to use her lymphedema pumps at least twice daily for 1 hour each. Elevate lower extremity. Protein rich diet. Continued glycemic control. Follow-up in 1 week. This note was generated with [employer] dictation software. It may contain incorrect words, spelling, and punctuation that were not noted in checking the note before signing.
[2017-06-12 10:19] VITALS: BP 140/93; PULSE 81; RESP 16; TEMP 36.6; BMI 67.5
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
[2017-06-19 12:07] VITALS: BP 122/68; PULSE 78; RESP 20; TEMP 36.6; BMI 67.5
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
== END 2017-06-22 23:59 ==
LOC: WC 12:00
PROVIDERS: Family Provider Internal Medicine; PCP Internal Medicine; Visit Provider Internal Medicine
DX: I83.028 Varicose veins of left lower extremity with ulcer other part of lower leg (principal); E11.622 Type 2 diabetes mellitus with other skin ulcer; E66.01 Morbid (severe) obesity due to excess calories; Z68.44 Body mass index [BMI] 60.0-69.9, adult; Z71.3 Dietary counseling and surveillance; I89.0 Lymphedema, not elsewhere classified; L97.821 Non-pressure chronic ulcer of other part of left lower leg limited to breakdown of skin
CPT/HCPCS: 11042; 11045; 29581

== ENCOUNTER 2017-07-17 10:30 | Outpatient (RCR) | payer MEDICARE, MEDICAID, SELFPAY ==
[2017-06-23 01:22] VITALS: BP 122/68; PULSE 78; RESP 20; TEMP 36.6; BMI 67.5
[2017-06-26 11:35] VITALS: BP 125/77; PULSE 75; RESP 24; TEMP 36.6; BMI 67.5
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
[2017-07-03 11:29] VITALS: BP 139/73; PULSE 74; RESP 22; TEMP 36.6; BMI 67.5
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
[2017-07-10 10:21] VITALS: BP 122/72; PULSE 76; RESP 18; TEMP 36.2; BMI 67.5
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
[2017-07-17 11:24] VITALS: BP 119/77; PULSE 73; RESP 20; TEMP 36.3; BMI 67.5
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
== END 2017-07-23 23:59 ==
LOC: WC 10:30
PROVIDERS: Family Provider Internal Medicine; PCP Internal Medicine; Visit Provider Internal Medicine
DX: E11.622 Type 2 diabetes mellitus with other skin ulcer (principal); I89.0 Lymphedema, not elsewhere classified; E66.01 Morbid (severe) obesity due to excess calories; Z68.44 Body mass index [BMI] 60.0-69.9, adult; Z71.3 Dietary counseling and surveillance; I83.018 Varicose veins of right lower extremity with ulcer other part of lower leg; L97.812 Non-pressure chronic ulcer of other part of right lower leg with fat layer exposed; Z91.19 Patient's noncompliance with other medical treatment and regimen; R60.0 Localized edema
CPT/HCPCS: 11042; 29581

== ENCOUNTER 2017-08-14 10:30 | Outpatient (RCR) | payer MEDICARE, MEDICAID, SELFPAY ==
[2017-07-17 11:24] VITALS: BP 119/77
[2017-07-24 00:46] VITALS: PULSE 73; RESP 20; TEMP 36.3
[2017-07-24 10:11] VITALS: BP 142/82; PULSE 68; RESP 18; TEMP 36.3; BMI 67.5
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
[2017-08-07 09:57] VITALS: BP 126/70; PULSE 76; RESP 22; TEMP 35.5; BMI 67.5
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
[2017-08-14 11:08] VITALS: BP 142/80; PULSE 84; RESP 18; TEMP 36.6; BMI 67.5
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
== END 2017-08-20 23:59 ==
LOC: WC 10:30
PROVIDERS: Family Provider Internal Medicine; PCP Internal Medicine; Visit Provider Internal Medicine
DX: E11.622 Type 2 diabetes mellitus with other skin ulcer (principal); I89.0 Lymphedema, not elsewhere classified; I83.018 Varicose veins of right lower extremity with ulcer other part of lower leg; L97.812 Non-pressure chronic ulcer of other part of right lower leg with fat layer exposed; R60.0 Localized edema; L03.115 Cellulitis of right lower limb; L97.312 Non-pressure chronic ulcer of right ankle with fat layer exposed
CPT/HCPCS: 11042; 15271; 29581; Q4172

== ENCOUNTER 2017-09-11 11:45 | Outpatient (RCR) | payer MEDICARE, MEDICAID, SELFPAY ==
[2017-08-21 00:38] VITALS: BP 142/82; PULSE 84; RESP 18; TEMP 36.6; BMI 67.5
[2017-08-21 10:51] VITALS: BP 133/77; PULSE 74; RESP 18; TEMP 36.4; BMI 67.5
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
[2017-08-28 12:05] VITALS: BP 154/89; PULSE 82; RESP 24; TEMP 36.2; BMI 67.5
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
[2017-09-04 11:44] VITALS: BP 143/81; PULSE 76; RESP 20; TEMP 36.8; BMI 67.5
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
[2017-09-11 11:36] VITALS: BP 150/80; PULSE 83; RESP 18; TEMP 35.9; BMI 67.5
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
[2017-09-18 11:33] VITALS: BP 132/84; PULSE 63; RESP 24; TEMP 36.4; BMI 67.5
== END 2017-09-20 23:59 ==
LOC: WC 11:45
PROVIDERS: Family Provider Internal Medicine; PCP Internal Medicine; Visit Provider Internal Medicine
DX: E11.622 Type 2 diabetes mellitus with other skin ulcer (principal); I89.0 Lymphedema, not elsewhere classified; I83.018 Varicose veins of right lower extremity with ulcer other part of lower leg; L97.812 Non-pressure chronic ulcer of other part of right lower leg with fat layer exposed; L03.115 Cellulitis of right lower limb; R60.0 Localized edema
CPT/HCPCS: 15271; 29581; 99212; Q4131; Q4172; G0463

== ENCOUNTER 2017-09-20 00:04 | Emergency (ER) | payer MEDICARE, MEDICAID, SELFPAY ==
[2017-09-20 00:05] VITALS: BP 112/43; PULSE 80; RESP 22; TEMP 36.6; O2SAT 98; BMI 65.4
--- NOTE | 2017-09-20 00:22 | EKG12_ITS ---
Test Reason : GENERAL ILLNESS Blood Pressure : / mmHG Vent. Rate : 068 BPM Atrial Rate : 068 BPM P-R Int : 156 ms QRS Dur : 086 ms QT Int : 378 ms P-R-T Axes : 000 -10 010 degrees QTc Int : 401 ms Normal sinus rhythm with sinus arrhythmia Low voltage QRS Nonspecific ST abnormality Abnormal ECG Confirmed by YVROSE PACHECO, KARTHIK ([id number]), editor dictionary STAN OSWALD ([id number]) on 09/22/2017 1:32:09 PM Referred By: LULU Confirmed By:KARTHIK FRANCES MD
[2017-09-20 00:29] LABS: Absolute Lymphocyte Count 1.15 X10^3/ul (0.83-4.51); Absolute Neutrophil Count 6.8 X10^3/uL (2.0-7.7); Basophil# 0.02 X10^3/uL; Basophil% 0.2 % (0-1); Eosinophil# 0.18 X10^3/uL; Hematocrit 36.7 % (37-47); Lymphocyte # 1.15 X10^3/ul (4.0); Lymphocyte % 12.9 % (19-41); Mean Corp Hgb Conc 32.7 g/gl (32-36); Mean Corpuscular Hgb 31.3 pg (27.0-32.0); Mean Corpuscular Volume 95.8 fL (81-99); Mean Platelet Vol. 9.9 fl (6.2-12.0); Monocyte# 0.72 X10^3/uL; Monocyte% 8.1 % (0-10); Neutrophil # 6.83 X10^3/uL (2.7-7.7); Neutrophil % 76.7 % (47-70); Platelet Count 228 K/mm3 (150-450); RBC Distribution Width CV 13.3 % (11.6-14.6); Red Blood Count 3.83 M/mm3 (4.2-5.4); White Blood Count 8.9 K/mm3 (4.4-11.0)
[2017-09-20 00:32] LABS: POSITIVE COUNT NO; POSITIVE DIFFERENTIAL NO; POSITIVE MORPHOLOGY NO
--- NOTE | 2017-09-20 00:34 | ED.RN ---
blood sugar 91.
[2017-09-20 00:36] LABS: Bedside Glucose 91 mg/dL (70-110)
[2017-09-20 00:50] LABS: ALB/GLOB Ratio 0.8 RATIO (0.9-2.4); AST(SGOT) 12 U/L (15-37); Alanine Aminotransfer ALT/SGPT 16 U/L (13-56); Albumin, Serum 3.1 g/dL (3.2-5.0); Alkaline Phosphatase 97 U/L (45-117); Anion Gap 7 (5-15); BUN 16 mg/dL (7-18); BUN/Creat Ratio 16.2 RATIO (10-20); Calcium,Total 8.7 mg/dL (8.5-10.1); Chloride 106 mmol/L (98-107); Creatinine, Serum 0.99 mg/dL (0.55-1.02); EST Glomerular Filtration Rate 60 mL/min (>60); Est Glom Filt Rate - Afr Amer 73 mL/min (>60); Estimated Creatinine Clearance 51.66 ml/min; Globulin 4.1 g/dL (2.2-4.2); Glucose 98 mg/dL (74-106); Potassium 4.1 mmol/L (3.5-5.1); Protein, Total 7.2 g/dL (6.4-8.2); Sodium Level 142 mmol/L (136-145)
[2017-09-20 01:09] LABS: Color, Urine Yellow (Yellow); Glucose, Dipstick Normal (Normal); Ketone-Dipstick Negative (Negative); Leukocyte Esterase-Dipstick 100 /ul (Negative); Nitrite-Dipstick Negative (Negative); Occult Blood-Urine 50 /ul (Negative); Protein-Dipstick 15 mg/dl (Negative); Specific Gravity, Urine 1.015 (1.002-1.030); Urine Bilirubin Dipstick Negative (Negative); Urine Clarity Sl. Cloudy (Clear); Urine Urobilinogen Normal (Normal)
[2017-09-20 01:16] LABS: Lactic Acid 1.4 mmol/L (0.4-2.0)
[2017-09-20 01:17] LABS: Squamous Epithelial Cells - UA 5-10 SEEN /hpf (5-10)
[2017-09-20 01:18] LABS: Bacteria RARE /hpf (None Seen); Mucous, Urine 1+ /hpf (<or=2+); Red Blood Cells-Urine 0-5 SEEN /hpf (0-5); Transitional Epithelial - Ur 0-5 SEEN /hpf (0-5); White Blood Cells 0-5 SEEN /hpf (0-5)
[2017-09-20] MEDS: Ondansetron 4 MG/2 ML Vial IV (01:18)
--- NOTE | 2017-09-20 01:22 | ED.VISSUMM ---
- ER Visit Summary Date of Service: 09/20/17 Chief Complaint: [Nausea] History of Present Illness: The patient is a 66 F [presents to the emergency department with complaint of nausea that started this evening after eating dinner. Patient denies chest pain or shortness of breath. Patient denies urinary symptoms. Patient is concerned because she has had sepsis in the past from cellulitis. Patient denies any fever. Patient denies recent illness. Patient denies any abdominal pain. Patient denies any diarrhea or blood in her stool.] Physical Examination: [HEENT-PERRLA, EOMI. Cranial nerves II through XII grossly intact. TMs clear. Mucous membranes moist. No adenopathy. Cardiovascular-regular rate and rhythm without murmur or ectopy Lungs-clear to auscultation, chest wall stable without crepitus or subcu emphysema Abdomen-normoactive bowel sounds, soft, nontender, no rebound or rigidity, no peritoneal signs. Patient is morbidly obese. Extremities-intact ?4, normal range of motion, normal pulses, atraumatic]. Both legs have significant lymphedema and are wrapped from below the knee to the feet. Patient does have some weeping from the left leg just below the knee however no significant cellulitis noted. Patient denies any increased redness to her feet. Patient does not want me to take the dressings off of her feet. Patient states that she has them wrapped once a week at the wound center. Test Results: [EKG obtained on arrival showed a sinus rhythm with a ventricular rate of 68 bpm with some nonspecific ST changes. CBC with differential showed a white count of 8.9, hemoglobin 12, hematocrit 37, platelets 228. Chemistries were normal. LFTs were unremarkable. Urinalysis was normal. Lactate was 1.4. Troponin was less than 0.02.] Emergency Department Course and Treatment: [Patient received Zofran 4 mg IV and felt improved.] Treatment Plan: [At this point I do not see any evidence of sepsis. Patient is feeling improved.] Disposition: [Discharged home in stable condition. Patient advised to follow-up with her primary care physician within next 3-5 days.] Impression: [Nausea-etiology uncertain] This note was generated with [employer] dictation software. It may contain incorrect words, spelling, and punctuation that were not noted in review of the chart prior to signing ED Disposition - Plan for ED Patient: Chief Complaint: Nausea/Vomiting Referrals: Sebastián Smith MD [Primary Care Provider] -
--- NOTE | 2017-09-20 01:26 | ED.DCSUM_ITS ---
- ER Visit Summary Date of Service: 09/20/17 Chief Complaint: [Nausea] History of Present Illness: The patient is a 66 F [presents to the emergency department with complaint of nausea that started this evening after eating dinner. Patient denies chest pain or shortness of breath. Patient denies urinary symptoms. Patient is concerned because she has had sepsis in the past from cellulitis. Patient denies any fever. Patient denies recent illness. Patient denies any abdominal pain. Patient denies any diarrhea or blood in her stool.] Physical Examination: [HEENT-PERRLA, EOMI. Cranial nerves II through XII grossly intact. TMs clear. Mucous membranes moist. No adenopathy. Cardiovascular-regular rate and rhythm without murmur or ectopy Lungs-clear to auscultation, chest wall stable without crepitus or subcu emphysema Abdomen-normoactive bowel sounds, soft, nontender, no rebound or rigidity, no peritoneal signs. Patient is morbidly obese. Extremities-intact ?4, normal range of motion, normal pulses, atraumatic]. Both legs have significant lymphedema and are wrapped from below the knee to the feet. Patient does have some weeping from the left leg just below the knee however no significant cellulitis noted. Patient denies any increased redness to her feet. Patient does not want me to take the dressings off of her feet. Patient states that she has them wrapped once a week at the wound center. Test Results: [EKG obtained on arrival showed a sinus rhythm with a ventricular rate of 68 bpm with some nonspecific ST changes. CBC with differential showed a white count of 8.9, hemoglobin 12, hematocrit 37, platelets 228. Chemistries were normal. LFTs were unremarkable. Urinalysis was normal. Lactate was 1.4. Troponin was less than 0.02.] Emergency Department Course and Treatment: [Patient received Zofran 4 mg IV and felt improved.] Treatment Plan: [At this point I do not see any evidence of sepsis. Patient is feeling improved.] Disposition: [Discharged home in stable condition. Patient advised to follow- up with her primary care physician within next 3-5 days.] Impression: [Nausea-etiology uncertain] This note was generated with [employer] dictation software. It may contain incorrect words, spelling, and punctuation that were not noted in review of the chart prior to signing ED Disposition - Plan for ED Patient: Chief Complaint: Nausea/Vomiting Referrals: Sebastián Smith MD [Primary Care Provider] -
--- NOTE | 2017-09-20 01:26 | ED.DEP ---
ED Disposition - Plan for ED Patient: Chief Complaint: Nausea/Vomiting Instructions: ED Nausea Vomiting Prescriptions: Ondansetron [Zofran Odt] 4 mg PO Q8H PRN PRN #10 tab PRN Reason: Nausea Referrals: Sebastián Smith MD [Primary Care Provider] - 3-5 Days
[2017-09-20 01:47] VITALS: PULSE 88; RESP 18; O2SAT 96
[2017-09-20] MEDS: Ondansetron ODT 4 MG Tablet PO (01:47)
== END 2017-09-20 02:17 | disposition home or self-care (01) ==
LOC: ED 00:28
PROVIDERS: Emergency Provider Emergency Medicine; Family Provider Internal Medicine; PCP Internal Medicine
DX: R11.0 Nausea (principal); E11.9 Type 2 diabetes mellitus without complications; I89.0 Lymphedema, not elsewhere classified; E66.01 Morbid (severe) obesity due to excess calories; Z79.01 Long term (current) use of anticoagulants; Z79.84 Long term (current) use of oral hypoglycemic drugs; Z79.899 Other long term (current) drug therapy; Z86.19 Personal history of other infectious and parasitic diseases; Z86.711 Personal history of pulmonary embolism
CPT/HCPCS: 80053; 81001; 82962; 83605; 84484; 85025; 93005; 96374; 99285; P9612; A4216; J2405

== ENCOUNTER 2017-09-24 11:27 | Inpatient (IN) | payer MEDICARE, MEDICAID, SELFPAY ==
[2017-09-24 11:29] VITALS: BP 140/72; PULSE 120; RESP 24; TEMP 37; O2SAT 95; BMI 63.7
--- NOTE | 2017-09-24 11:59 | EKG12_ITS ---
Test Reason : Blood Pressure : / mmHG Vent. Rate : 114 BPM Atrial Rate : 114 BPM P-R Int : 192 ms QRS Dur : 086 ms QT Int : 316 ms P-R-T Axes : 082 -18 021 degrees QTc Int : 435 ms Sinus tachycardia Otherwise normal ECG Confirmed by KARTHIK FRANCES MD ([id number]), story editor STAN OSWALD ([id number]) on 09/30/2017 8:58:10 AM Referred By: LINO Confirmed By:KARTHIK FRANCES MD
--- NOTE | 2017-09-24 12:07 | ED.DCSUM_ITS ---
- ER Visit Summary Date of Service: 09/24/17 Chief Complaint: Acute on chronic bilateral lymphedema History of Present Illness: The patient is a 66 F history of chronic lymphedema for years. She goes to the wound center weekly and has wraps placed. She is also on Lasix albumin fluid. Basically states that the swelling is just worse. He is also had some nausea. Denies vomiting, diarrhea or fever. She is on Coumadin for prior PE DVT. Physical Examination: Well-appearing older female. Vital signs are stable afebrile. Pulse ox 90% room air no signs of hypoxia. H EENT exam is unremarkable. Neck nontender no lymphadenopathy. Lungs clear to auscultation bilaterally. Heart regular rhythm no murmur rate about 120. Abdomen morbidly obese but soft nontender nondistended no giving or masses. Extremities moving all 4. Both lower extremities from her knees to her feet she has wraps on for chronic lymphedema she is significantly swollen lower extremities from chronic lymphedema. There is no redness or warmth in the thighs. Neurologically she is awake and alert with no focal motor deficits. Her back exam is nontender. Test Results: Chest x-ray shows chronic cardiomegaly but no acute process read by myself the radiologist. EKG sinus rhythm 114. White count is elevated 19, 500 previously has been normal. Normal H&H no bands. Electro lites unremarkable creatinine 1.33 she does have some renal insufficiency. INR is 3.0 she is on Coumadin UA normal. I do not have a specific source for the white count elevation. We took down her dressings were lower extremities are significantly lymphedematous. They are both red and warm this may be underlying cellulitis versus chronic changes. Emergency Department Course and Treatment: Screening labs will be obtained. Treatment Plan: We will be started on IV Zosyn for lower extremity cellulitis. I will speak to the hospitalist about admission. Disposition: Admission Impression: Acute on chronic lymphedema Leukocytosis with lower extremity cellulitis History of [id number] diabetes This note was generated with [employer] dictation software. It may contain incorrect words, spelling, and punctuation that were not noted in review of the chart prior to signing ED Disposition - Plan for ED Patient: Chief Complaint: Other, Pain/Inj Referrals: Sebastián Smith MD [Primary Care Provider] -
[2017-09-24 12:19] LABS: Absolute Lymphocyte Count 0.48 X10^3/ul (0.83-4.51); Absolute Neutrophil Count 18.7 X10^3/uL (2.0-7.7); Basophil# 0.01 X10^3/uL; Basophil% 0.1 % (0-1); Lymphocyte # 0.48 X10^3/ul (4.0); Lymphocyte % 2.5 % (19-41); Mean Corp Hgb Conc 31.6 g/gl (32-36); Mean Corpuscular Hgb 30.3 pg (27.0-32.0); Mean Platelet Vol. 9.6 fl (6.2-12.0); Monocyte# 0.34 X10^3/uL; Monocyte% 1.7 % (0-10); Neutrophil # 18.65 X10^3/uL (2.7-7.7); Neutrophil % 95.5 % (47-70); Platelet Count 215 K/mm3 (150-450); RBC Distribution Width CV 13.9 % (11.6-14.6); RBC Distribution Width SD 48.6 fl (35.1-43.9); Red Blood Count 3.96 M/mm3 (4.2-5.4); White Blood Count 19.5 K/mm3 (4.4-11.0)
[2017-09-24 12:20] LABS: Differential Indicated SCAN CRITERIA MET; POSITIVE COUNT NO; POSITIVE DIFFERENTIAL YES; POSITIVE MORPHOLOGY NO
[2017-09-24 12:25] LABS: BUN 20 mg/dL (7-18); Creatinine, Serum 1.33 mg/dL (0.55-1.02); EST Glomerular Filtration Rate 43 mL/min (>60); Estimated Creatinine Clearance 38.45 ml/min; Glucose 131 mg/dL (74-106)
[2017-09-24 12:26] LABS: Anion Gap 10 (5-15); Calcium,Total 8.6 mg/dL (8.5-10.1); Chloride 105 mmol/L (98-107); Est Glom Filt Rate - Afr Amer 52 mL/min (>60); Sodium Level 142 mmol/L (136-145)
[2017-09-24 12:31] LABS: Prothrombin Time (Protime)PT. 30.9 SECONDS (11.7-14.9)
[2017-09-24 12:48] LABS: Red Cell Morphology NORM C+C NORMAL (NORM C&C)
[2017-09-24 13:15] VITALS: BP 137/81; PULSE 118; RESP 19; O2SAT 96
--- NOTE | 2017-09-24 13:15 | RAD_ITS ---
STUDY: X-RAY CHEST REASON FOR EXAM: Female, 66 years old. Weakness. TECHNIQUE: AP and lateral views of the chest. COMPARISON: Comparison is made with prior study dated May 04, 2017. FINDINGS: The lungs are clear and expanded. There is no demonstrated pleural abnormality. There is mild cardiac enlargement. Normal mediastinum and nicolas. Normal visualized pulmonary arteries. There is atherosclerotic calcification of the aortic arch with tortuosity. Normal visualized thoracic spine. There is degenerative osteoarthritis of the bilateral shoulders. There is no demonstrated abnormality of the visualized soft tissue structures of the upper abdomen. RAD/Chest PA and Lateral IMPRESSION: Mild cardiomegaly. Electronically Signed: Blayne Garcia MD at 13:53 EDT Tel [phone], Service support ,
[2017-09-24 14:08] LABS: Bacteria 0 SEEN /hpf (None Seen); Squamous Epithelial Cells - UA 0 SEEN /hpf (5-10); White Blood Cells 0 SEEN /hpf (0-5)
[2017-09-24 14:40] LABS: Color, Urine Yellow (Yellow); Glucose, Dipstick Normal (Normal); Ketone-Dipstick Negative (Negative); Leukocyte Esterase-Dipstick Negative /ul (Negative); Nitrite-Dipstick Negative (Negative); Occult Blood-Urine 10 /ul (Negative); Protein-Dipstick Negative (Negative); Urine Bilirubin Dipstick Negative (Negative); Urine Clarity Clear (Clear); Urine Urobilinogen Normal (Normal)
[2017-09-24 14:47] LABS: Red Blood Cells-Urine 0-5 SEEN /hpf (0-5)
[2017-09-24 14:48] LABS: Mucous, Urine RARE /hpf (<or=2+)
[2017-09-24 17:18] VITALS: BMI 63.7
[2017-09-24 17:19] VITALS: RESP 20
[2017-09-24 17:20] VITALS: BP 137/50; PULSE 120; O2SAT 97
--- NOTE | 2017-09-24 17:42 | HP.PCM_ITS ---
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 use Diabetes mellitus complication detail: with chronic kidney disease Chronic kidney disease stage: stage 3 (moderate) (6) Chronic Lymphedema Status: Chronic (7) Venous stasis ulcer of left lower leg with edema of left lower leg Status: Chronic (8) Venous stasis ulcer of right lower leg with edema of right lower leg Status: Chronic History of Present Illness Date of Admission: 09/24/17 Chief Complaint: feeling unwell, leg pain on left The patient is a 66 year old F past medical history of super morbid obesity, chronic lymphedema with venous stasis ulcers bilaterally for which she has been following in wound care clinic, hypertension, diabetes on oral agents, CKD3, hyperlipidemia, chronic anticoagulation, hypothyroidism, who is brought in by squad for feeling unwell, leg pain, thought her breathing was off. Upon further questioning her breathing is at baseline. She had extensive evaluation in the emergency room and was found to have cellulitis of her left lower extremity with white count 19.5K. She states that she is able to walk and get out to the chair; however she lives alone and only has a friend helping her occasionally. In the emergency department, her lower extremity dressings were removed, indicating several areas of venous stasis ulcerations of the right and left lower extremity, however on the left lower extremity posteriorly is a area that appears weeping and she has surrounding beefy red cellulitis of the left lower extremity. INR is 3, creatinine 1.33, random glucose 131. Urinalysis is negative. X-ray revealed mild cardiomegaly but clear lungs and no pleural abnormality. The patient received Zosyn 4.5 g IV and is referred for admission. [] Past Medical History Past Medical History (Chronic Problems): Chronic Problems Morbid obesity (Chronic) Hypothyroidism (Chronic) GERD (gastroesophageal reflux disease) (Chronic) Diabetes mellitus (Chronic) Chronic Lymphedema (Chronic) Unspecified open wound, left thigh, initial encounter (Chronic) Venous stasis ulcer of left lower leg with edema of left lower leg (Chronic) Lymphedema of both lower extremities (Chronic) Venous stasis ulcer of right lower leg with edema of right lower leg (Chronic) Cellulitis of leg, right (Chronic) Allergies No Known Allergies Allergy (Verified 09/24/17 11:32) Home Medications: Ambulatory Orders Medication Instructions Recorded Atorvastatin Calcium [Lipitor] 20 mg PO QHS 09/18/14 Famotidine [Pepcid] 20 mg PO BID 09/18/14 Hydrocodone/Acetaminophen 1 each PO Q8H PRN PRN 09/18/14 [Hydrocodon-Acetaminophen 5-325] Levothyroxine Sodium [Levoxyl] 100 mcg PO DAILY 09/18/14 Lisinopril [Zestril] 20 mg PO DAILY 09/18/14 Metformin HCl [Glucophage] 500 mg PO BIDCM 09/18/14 Warfarin [Coumadin] 3 mg PO TUTH 09/18/14 Furosemide 60 mg PO DAILY 03/21/16 Gabapentin [Neurontin] 300 mg PO QHS 09/29/16 Collagenase [Santyl] 1 applic TOPICAL DAILY 05/04/17 Ondansetron [Zofran Odt] 4 mg PO Q8H PRN PRN #10 tab 09/20/17 Magnesium Oxide [Mag-Ox 400] 400 mg PO BIDCM 09/24/17 Warfarin [Coumadin (PBKC)] 2 mg PO SUMOWEFRSA 09/24/17 Surgical History: appendectomy, hysterectomy, tonsillectomy Smoking Status: Never smoker - *Family History Maternal History Items: Diabetes Paternal History Items: Diabetes Review of Systems Constitutional: Reports: Fatigue Musculoskeletal: Reports: Leg Pain - L LE red and painful VTE Information - Inpt Only VTE Present on Admission: No VTE Mechan Device Prophylaxis: None VTE Pharm Prophylaxis ordered?: No Reason prophylaxis not ordered:: Medical Contraindication - lymphedema and ulceration sf LE, on chronic warfarin Patient Problems: Active and Suspected Problems Cellulitis (Acute) Cellulitis of leg, left (Acute) Subjective: c/o leg pain L Objective: pleasant non toxic appearing - Physical Exam General: Alert, Oriented x3, Cooperative, No apparent distress HEENT: Atraumatic, PERRLA Oral: Moist Mucosa, - - dentition fair Neck: Supple, Thyroid Normal Size and Texture Lungs: Clear to auscultation Cardiovascular: Regular rate, Regular Rhythm, Normal S1, Normal S2 Abdomen: Soft, Non Tender, Obese Extremities: - - chronic lymphedema L and R with areas of ulceations healing L and R LE; on L LE psoteriorly ulceration about 1 by 1 cm with extending erythema of leg circumferentially beefy red Psych/Mental Status: Normal Affect Vital Signs Temp Pulse Resp BP Pulse Ox 98.6 F 120 H 20 H 137/50 H 97 09/24/17 11:29 09/24/17 17:20 09/24/17 17:19 09/24/17 17:20 09/24/17 17:20 Oxygen Flow Rate (L/min) 2 Oxygen Delivery Method Nasal Cannula Weight: 382 lb 15.087 oz Body Mass Index (BMI) 63.7 Laboratory Tests Past 24 Hrs 09/24/17 09/24/17 09/24/17 12:05 12:05 12:05 WBC 19.5 H RBC 3.96 L Hgb 12.0 Hct 38.0 MCV 96.0 MCH 30.3 MCHC 31.6 L RDW 13.9 RDW Differential 48.6 H Plt Count 215 MPV 9.6 Immature Gran % (Auto) 0.200 Neut % (Auto) 95.5 H Lymph % (Auto) 2.5 L [place] % (Auto) 1.7 Eos % (Auto) 0.0 Baso % (Auto) 0.1 Absolute Neuts (auto) 18.7 H Absolute Lymphs (auto) 0.48 L Total Counted Not Reportable RBC Morphology NORM C+C PT 30.9 H INR 3.0 Sodium 142 Potassium 4.0 Chloride 105 Carbon Dioxide 27.0 Anion Gap 10 BUN 20 H Creatinine 1.33 H Estim Creat Clear Calc 38.45 Est GFR (MDRD) Af Amer 52 L Est GFR (MDRD) Non-Af 43 L BUN/Creatinine Ratio 15.0 Glucose 131 H Calcium 8.6 Urine Color Urine Clarity Urine pH Ur Specific [place] Urine Protein Urine Glucose (UA) Urine Ketones Urine Occult Blood Urine Nitrite Urine Bilirubin Urine Urobilinogen Ur Leukocyte Esterase Urine RBC Urine WBC Ur Squamous Epith Cells Urine Bacteria Urine Mucus 09/24/17 13:57 WBC RBC Hgb Hct MCV MCH MCHC RDW RDW Differential Plt Count MPV Immature Gran % (Auto) Neut % (Auto) Lymph % (Auto) [place] % (Auto) Eos % (Auto) Baso % (Auto) Absolute Neuts (auto) Absolute Lymphs (auto) Total Counted RBC Morphology PT INR Sodium Potassium Chloride Carbon Dioxide Anion Gap BUN Creatinine Estim Creat Clear Calc Est GFR (MDRD) Af Amer Est GFR (MDRD) Non-Af BUN/Creatinine Ratio Glucose Calcium Urine Color Yellow Urine Clarity Clear Urine pH 6.0 Ur Specific [place] 1.010 Urine Protein Negative Urine Glucose (UA) Normal Urine Ketones Negative Urine Occult Blood 10 H Urine Nitrite Negative Urine Bilirubin Negative Urine Urobilinogen Normal Ur Leukocyte Esterase Negative Urine RBC 0-5 SEEN Urine WBC 0 SEEN Ur Squamous Epith Cells 0 SEEN Urine Bacteria 0 SEEN Urine Mucus RARE Assessment/Plan Active and Suspected Problems Cellulitis (Acute) Cellulitis of leg, left (Acute) 66-year-old patient with medical comorbidities of super morbid BZD, hyperlipidemia, chronic lower extremity lymphedema, hypothyroidism, hypertension , diabetes mellitus 2 on oral agents with CKD 3, chronic anticoagulation, presents with feeling unwell and worsening left lower extremity pain, found to have leukocytosis and cellulitis of the left lower extremity. 1. Cellulitis left lower extremity 2. Chronic venous ulcerations of left and right lower extremity, chronic lower extremity lymphedema 3. Super morbid obesity 4. Hypertension on lisinopril,, Lasix 5. Hyperlipidemia on atorvastatin 6. DM 2, without long-term use of insulin, CKD 3 -- home medications include metformin, Amaryl -- on hold; will use Novolog scale low medium AC/HS, continue gabapentin 7 . hypothyroid on replacement 8. chronic anticoagulation (warfarin) Plan: Vancomycin 1.0 g IV every 12, Zosyn 3.375 g IV every 6 Infectious disease opinion Wound care opinion Glycemic control as above daily lab ordered case mgmt evaluation ? ability for self care?? Code Visit Inpatient E&M: [id number] Init Hosp L2
--- NOTE | 2017-09-24 17:45 | NURSING ---
301 CELLULITIS, LEFT LE BERTRAM
[2017-09-24 18:27] VITALS: BMI 63.6
[2017-09-24 18:32] VITALS: BP 142/66; PULSE 115; RESP 20; TEMP 37.3; O2SAT 96
[2017-09-24 19:11] LABS: Bedside Glucose 105 mg/dL (70-110)
[2017-09-24] MEDS: Atorvastatin Calcium 20 MG Tablet PO (21:07)
[2017-09-24] MEDS: Gabapentin 300 MG Capsule PO (21:07)
[2017-09-24] MEDS: Glucerna Shake 120 ML LIQUID PO (21:19)
[2017-09-24 22:00] VITALS: BP 153/69; PULSE 113; RESP 18; TEMP 36.4; O2SAT 100
[2017-09-24 22:20] LABS: Bedside Glucose 106 mg/dL (70-110)
[2017-09-25] MEDS: Piperacil/Tazobactam 3.375 GM/50 ML ML IV ×3 (02:45→16:56)
[2017-09-25 03:49] VITALS: BP 116/47; PULSE 105; RESP 18; TEMP 37.1; O2SAT 95
[2017-09-25 05:52] LABS: Absolute Lymphocyte Count 0.82 X10^3/ul (0.83-4.51); Absolute Neutrophil Count 16.3 X10^3/uL (2.0-7.7); Basophil# 0.01 X10^3/uL; Basophil% 0.1 % (0-1); Eosinophil# 0.02 X10^3/uL; Eosinophils% 0.1 % (0-5); Hematocrit 32.2 % (37-47); Hemoglobin 10.3 g/dl (12.0-15.0); Lymphocyte # 0.82 X10^3/ul (4.0); Lymphocyte % 4.7 % (19-41); Mean Corpuscular Hgb 31.2 pg (27.0-32.0); Mean Corpuscular Volume 97.6 fL (81-99); Mean Platelet Vol. 10.2 fl (6.2-12.0); Monocyte# 0.45 X10^3/uL; Monocyte% 2.6 % (0-10); Neutrophil # 16.26 X10^3/uL (2.7-7.7); Neutrophil % 92.3 % (47-70); Platelet Count 198 K/mm3 (150-450); RBC Distribution Width CV 13.9 % (11.6-14.6); RBC Distribution Width SD 47.2 fl (35.1-43.9); White Blood Count 17.6 K/mm3 (4.4-11.0)
[2017-09-25 05:59] LABS: POSITIVE COUNT NO; POSITIVE DIFFERENTIAL NO; POSITIVE MORPHOLOGY NO
[2017-09-25 06:10] LABS: Anion Gap 6 (5-15); BUN 16 mg/dL (7-18); BUN/Creat Ratio 14.2 RATIO (10-20); Calcium,Total 8.3 mg/dL (8.5-10.1); Chloride 105 mmol/L (98-107); Creatinine, Serum 1.13 mg/dL (0.55-1.02); EST Glomerular Filtration Rate 51 mL/min (>60); Est Glom Filt Rate - Afr Amer 62 mL/min (>60); Estimated Creatinine Clearance 45.26 ml/min; Glucose 102 mg/dL (74-106); Magnesium 1.7 mg/dL (1.6-2.6); Sodium Level 140 mmol/L (136-145)
[2017-09-25] MEDS: Levothyroxine 100 MCG Tablet PO (06:52)
--- NOTE | 2017-09-25 07:46 | PCM.RX.CS ---
Consult Pharmacy has been consulted to manage selected antiobiotic: Vancomycin Type of Consult: New start Suspected Infection: Skin/Soft tissue Labs: Sodium 140 mmol/L (136-145) 09/25/17 05:24 Potassium 4.0 mmol/L (3.5-5.1) 09/25/17 05:24 Chloride 105 mmol/L (98-107) 09/25/17 05:24 Carbon Dioxide 29.0 mmol/L (21.0-32.0) 09/25/17 05:24 Anion Gap 6 (5-15) 09/25/17 05:24 BUN 16 mg/dL (7-18) 09/25/17 05:24 Creatinine 1.13 mg/dL (0.55-1.02) H 09/25/17 05:24 Est GFR (MDRD) Af Amer 62 mL/min (>60) 09/25/17 05:24 Est GFR (MDRD) Non-Af 51 mL/min (>60) L 09/25/17 05:24 BUN/Creatinine Ratio 14.2 RATIO (10-20) 09/25/17 05:24 Glucose 102 mg/dL (74-106) 09/25/17 05:24 Weight used for dosin kg Estimated Creatinine Clearance: 45 mL/min Goal Trough: 10-15 mcg/mL Pharmacy Plan for Drug Dosing: Patient did not receive loading dose, will likely take extended time to reach steady-state levels. Continue vancomycin 1000mg IV q12h, check trough after 72h. Pharmacy Service will continue to monitor and adjust dosing as required. Follow-Up Labs: Trough Vancomycin - 09/27/17 @ 0900
--- NOTE | 2017-09-25 08:03 | PCA ---
Cancelled pt transfer through [facility] for her wound care center appointment this morning. Call also placed to wound care center, spoke with Deisy to cancel pt appointment, per RN request.
[2017-09-25] MEDS: Famotidine 20 MG Tablet PO (08:32)
[2017-09-25] MEDS: Magnesium Oxide 400 MG Tablet PO ×2 (08:32→16:57)
[2017-09-25] MEDS: Furosemide 40 MG Tablet 60 MG PO (08:32)
--- NOTE | 2017-09-25 09:00 | NURSING ---
wound photo: left lower leg
--- NOTE | 2017-09-25 09:01 | NURSING ---
wound photo: right lower leg (medial view)
--- NOTE | 2017-09-25 09:01 | NURSING ---
wound photo: right lower leg (lateral view)
--- NOTE | 2017-09-25 09:28 | CASEMGMT ---
CHART REVIEW: HARVINDER Strata: 2 Adm dx: LLE Cellulitis Status: IP Insurance: [facility] A/B and [facility] Date of Admission: 09/24/17 Chief Complaint: feeling unwell, leg pain on left QUILEUTE: Per physician documentation, the patient is a 66 year old F past medical history of super morbid obesity, chronic lymphedema with venous stasis ulcers bilaterally for which she has been following in wound care clinic, hypertension, diabetes on oral agents, CKD3, hyperlipidemia, chronic anticoagulation, hypothyroidism, who is brought in by squad for feeling unwell, leg pain, thought her breathing was off. Upon further questioning her breathing is at baseline. She had extensive evaluation in the emergency room and was found to have cellulitis of her left lower extremity with white count 19.5K. She states that she is able to walk and get out to the chair; however she lives alone and only has a friend helping her occasionally. In the emergency department, her lower extremity dressings were removed, indicating several areas of venous stasis ulcerations of the right and left lower extremity, however on the left lower extremity posteriorly is a area that appears weeping and she has surrounding beefy red cellulitis of the left lower extremity. Transition Planning/Care Coordination: The patient was admitted in April 2017 for cellulitis and at that time was active with [facility] for wound care, lived in her son's basement, and had a friend who assisted when needed. Patient was a Passport/Waiver client at that time, as well. SW referral is made at this time because the patient has history of Passport services and there is question as to whether patient is managing well at home, patient has limited support, and may require further services at discharge. RN RACHAEL will follow along with SW for safe transition plan. Disposition Plan: TBD by hospital course. T. Lynne, BSN, RN-BC, CCM
[2017-09-25 10:52] VITALS: BP 128/71; PULSE 100; RESP 20; TEMP 36.9; O2SAT 98
[2017-09-25] MEDS: Lisinopril 20 MG Tablet PO (10:55)
[2017-09-25] MEDS: Glucerna Shake 120 ML LIQUID PO ×4 (10:55→22:00)
--- NOTE | 2017-09-25 10:58 | CASEMGMT ---
Social Work Note SW met with pt to compete initial assessment and to assist with discharge planning. SW introduced self and role at [facility]. Pt states that she lives alone in a one story home. She states that she has a close friend who comes over to her house everynight and stays with her. Pt states that her main supports are her close friend and her cooker helper's . Pt states that before coming to the hospital she was independent with cooking and doing dishes. Pt confirms that she has home health care and [facility] services. Pt's case checker at [facility] is Laura Antonio. Pt states that her aides come in 5 days a week for 2-3 hours and they assist her with laundry. Pt states that she has a walker, cane and two wheelchairs at home. Pt states that her PCP is Doctor Carlisle. Pt denied additional needs at this time. Pt states that she feels supported at home. SW left message for Laura Antonio informing her of pt's admission into hospital and that pt's plan is to return home and resume services. Substance Abuse Hx: Patient denied Mental Health HX Patient denied Resources: [facility] - Laura Antonio is case checker Pt has Home health Care Plan: Discharge home and resume home health care services Haydee Rutledge ASSISTANT WOMEN'S ROWING COACH, INFORMATION TECHNOLOGY OFFICER
[2017-09-25 11:41] LABS: Bedside Glucose 129 mg/dL (70-110)
[2017-09-25 11:45] LABS: Bedside Glucose 110 mg/dL (70-110)
--- NOTE | 2017-09-25 14:42 | PN_ITS ---
Patient Problems: Active and Suspected Problems Cellulitis (Acute) Cellulitis of leg, left (Acute) Subjective: Patient was seen and examined. She had on 09/24/2017 with bilateral lower extremity cellulitis. Morbidly obese, bilateral lower extremity is wrapped, denies any fever or chills or shortness of breath. Vitals/I&O's: Vital Signs Temp Pulse Resp BP Pulse Ox 98.4 F 100 20 H 128/71 H 98 09/25/17 10:52 09/25/17 10:52 09/25/17 10:52 09/25/17 10:52 09/25/17 10:52 Oxygen Delivery Method Room Air Weight: 173.544 kg Body Mass Index (BMI) 63.6 Intake and Output for Last 24 Hours 09/23/17 09/24/17 09/25/17 23:59 23:59 23:59 Intake Total 956 / 956 Balance 956 / 956 General: Alert, Oriented x3, Cooperative, No apparent distress HEENT: Atraumatic, PERRLA, EOMI, Normocephalic Oral: Moist Mucosa Neck: Supple Lungs: Clear to auscultation, Normal air movement Cardiovascular: Regular rate, Regular Rhythm, Normal S1, Normal S2, No murmurs Abdomen: Bowel Sounds Present, Soft, Non Tender, Non-Distended, No Hepato- splenomegaly Extremities: Edema - Bilateral lower extremity edema, with open areas with crustiness, severe all over up to the knee, chronic lymphedema Skin: No rashes, No breakdown Musculoskeletal: No Tenderness to Palpation of Joints or Extremities Lymphatic: No Cervical, Supraclavicular, or Inguinal Adenopathy - edema Neurological: Cranial nerves II-XII grossly intact Psych/Mental Status: Normal Affect, Appropriate Laboratory Results 09/24/17 18:40: POC Glucose 105 09/24/17 21:15: POC Glucose 106 09/25/17 05:24: WBC 17.6 H, RBC 3.30 L, Hgb 10.3 L, Hct 32.2 L, MCV 97.6, MCH 31.2, MCHC 32.0, RDW 13.9, RDW Differential 47.2 H, Plt Count 198, MPV 10.2, Immature Gran % (Auto) 0.200, Neut % (Auto) 92.3 H, Lymph % (Auto) 4.7 L, [place] % (Auto) 2.6, Eos % (Auto) 0.1, Baso % (Auto) 0.1, Absolute Neuts (auto) 16.3 H , Absolute Lymphs (auto) 0.82 L, Total Counted Not Reportable 09/25/17 05:24: Sodium 140, Potassium 4.0, Chloride 105, Carbon Dioxide 29.0, Anion Gap 6, BUN 16, Creatinine 1.13 H, Estim Creat Clear Calc 45.26, Est GFR ( MDRD) Af Amer 62, Est GFR (MDRD) Non-Af 51 L, BUN/Creatinine Ratio 14.2, Glucose 102, Calcium 8.3 L, Magnesium 1.7 09/25/17 06:54: POC Glucose 110 09/25/17 11:26: POC Glucose 129 H Current Medications Acetaminophen (Tylenol) 650 mg PO Q6H PRN PRN PRN Reason: Mild Pain (scale 0-3)/T>100.7 Hydrocodone Bitart/Acetaminophen ([place] 5mg-325mg) 1 tablet PO Q8H PRN PRN PRN Reason: PAIN Al Hydroxide/Mg Hydroxide (Mylanta Ii) 30 ml PO Q6H PRN PRN PRN Reason: Gastric Burning Atorvastatin Calcium (Lipitor) 20 mg PO QHS [facility] Last Admin: 09/24/17 21:07 Dose: 20 mg Bisacodyl (Dulcolax) 10 mg PO DAILY PRN PRN PRN Reason: Constipation Dextrose (D50w Syringe) 0 gm IV X1 PRN; Protocol PRN Reason: Hypoglycemia Docusate Sodium (Colace) 200 mg PO BID PRN PRN PRN Reason: Constipation Famotidine (Pepcid) 20 mg PO DAILY [facility] Last Admin: 09/25/17 08:32 Dose: 20 mg Furosemide (Lasix) 60 mg PO DAILY [facility] Last Admin: 09/25/17 08:32 Dose: 60 mg Gabapentin (Neurontin) 300 mg PO QHS [facility] Last Admin: 09/24/17 21:07 Dose: 300 mg Glucagon () 1 mg IM .X1 PRN PRN Reason: Hypoglycemia Piperacillin Sod/Tazobactam Sod (Zosyn) 3.375 gm in 50 mls @ 12.5 mls/hr IV Q8H [facility] Last Admin: 09/25/17 10:01 Dose: 12.5 mls/hr Vancomycin HCl (Vancomycin) 1,000 mg in 200 mls @ 200 mls/hr IV Q12H [facility] Last Admin: 09/25/17 08:31 Dose: 200 mls/hr Insulin Aspart (Novolog Flexpen (Bkc)) 0 units SC ACHS [facility] PRN Reason: Protocol Last Admin: 09/25/17 11:32 Dose: Not Given Levothyroxine Sodium (Synthroid) 100 mcg PO DAILY@0600 [facility] Last Admin: 09/25/17 06:52 Dose: 100 mcg Lisinopril (Zestril) 20 mg PO DAILY [facility] Last Admin: 09/25/17 10:55 Dose: 20 mg Magnesium Hydroxide (Milk Of Magnesia) 30 ml PO DAILY PRN PRN PRN Reason: Constipation Magnesium Oxide (Mag-Ox 400) 400 mg PO BIDCM [facility] Last Admin: 09/25/17 08:32 Dose: 400 mg Melatonin (Melatonin) 3 - 6 mg PO QHS PRN PRN Reason: SLEEP Nutritional Formula (Lactose Free) (Glucerna Shake) 120 ml PO 4X/DAY [facility] Last Admin: 09/25/17 10:55 Dose: 120 ml Ondansetron HCl (Zofran) 4 mg IV Q8H PRN PRN PRN Reason: Nausea Oxycodone HCl (Oxyir) 5 mg PO Q4H PRN PRN PRN Reason: Moderate Pain (pain scale 4-5) Polyethylene Glycol (Miralax) 17 gm PO DAILY PRN PRN Reason: Constipation Sodium Chloride () 5 - 30 ml IV UD PRN PRN Reason: SALINE FLUSH Warfarin Sodium (Coumadin (Pbkc)) 2 mg PO SuMoWeFrSa@1700 [facility] Last Admin: 09/24/17 21:07 Dose: 2 mg Warfarin Sodium (Coumadin (Pbkc)) 3 mg PO TuTh@1700 [facility] Medical Necessity - Tobacco Use Smoking Status: Never smoker Assessment/Plan Active and Suspected Problems Cellulitis (Acute) Cellulitis of leg, left (Acute) 6-year-old female with past medical history of super morbid obesity, chronic lymphedema with chronic venous stasis ulcers bilaterally, chronically following in the wound care clinic, type 2 diabetes, hypertension, CKD stage III, who comes in with complaints of leg pain and shortness of breath. Patient was evaluated and admitted with cellulitis of a lower extremity. 1. Sepsis secondary to bilateral lower extremity cellulitis, started on vancomycin and Zosyn, with improvement in her white cell count, no fever seen here, being managed symptomatically, ID consulted because of severity of cellulitis, wound cultures are pending. 2. Hypertension, controlled, continue on lisinopril 3. Type II DM, blood sugars are stable, on insulin, home metformin on hold for now, continue with Accu-Cheks and insulin sliding scale 4. Dyslipidemia, on statin 5. Hypothyroidism, on levothyroxine 6. History of PE and DVT, on chronic anticoagulation, will continue with Coumadin 7. DVT prophylaxis - patient on Coumadin Code Visit Inpatient E&M: [id number] Subs Hosp L2
--- NOTE | 2017-09-25 14:49 | PCM.HP.ID ---
Problem List (1) Cellulitis Status: Acute Qualifiers: Site of cellulitis: extremity Site of cellulitis of extremity: lower extremity Laterality: left Qualified Code(s): L03.116 - Cellulitis of left lower limb Reason for Consult: cellulitis Consulted by: Dr. Martínez History of Present Illness: The patient is a 66 year old F with obesity and chronic lymphedema who presented with several days of chills and progressive LLE redness and clear drainage. No pain in leg. No inciting trauma or animal bites/scratches. Admitted in 04/2017 for similar sx and cx of wound (+) for MSSA, PsA, strep, and GPR, discharged on po levaquin. Also c/o some mild headache and nausea. Admitted, on vanc/zosyn, feeling better, redness improving. Full ROS performed and neg except as noted above. - Medical History Past Medical History (Chronic Problems): Chronic Problems Morbid obesity (Chronic) Hypothyroidism (Chronic) GERD (gastroesophageal reflux disease) (Chronic) Diabetes mellitus (Chronic) Chronic Lymphedema (Chronic) Unspecified open wound, left thigh, initial encounter (Chronic) Venous stasis ulcer of left lower leg with edema of left lower leg (Chronic) Lymphedema of both lower extremities (Chronic) Venous stasis ulcer of right lower leg with edema of right lower leg (Chronic) Cellulitis of leg, right (Chronic) Allergies/Adverse Reactions: Allergies No Known Allergies Allergy (Verified 09/24/17 11:32) Home Medications: Ambulatory Orders Medication Instructions Recorded Atorvastatin Calcium [Lipitor] 20 mg PO QHS 09/18/14 Famotidine [Pepcid] 20 mg PO BID 09/18/14 Hydrocodone/Acetaminophen 1 each PO Q8H PRN PRN 09/18/14 [Hydrocodon-Acetaminophen 5-325] Levothyroxine Sodium [Levoxyl] 100 mcg PO DAILY 09/18/14 Lisinopril [Zestril] 20 mg PO DAILY 09/18/14 Metformin HCl [Glucophage] 500 mg PO BIDCM 09/18/14 Warfarin [Coumadin] 3 mg PO TUTH 09/18/14 Furosemide 60 mg PO DAILY 03/21/16 Gabapentin [Neurontin] 300 mg PO QHS 09/29/16 Collagenase [Santyl] 1 applic TOPICAL DAILY 05/04/17 Ondansetron [Zofran Odt] 4 mg PO Q8H PRN PRN #10 tab 09/20/17 Magnesium Oxide [Mag-Ox 400] 400 mg PO BIDCM 09/24/17 Warfarin [Coumadin (PBKC)] 2 mg PO SUMOWEFRSA 09/24/17 - Social History SMOKING STATUS:: Never smoker Vital Signs Temp Pulse Resp BP Pulse Ox 98.4 F 100 20 H 128/71 H 98 09/25/17 10:52 09/25/17 10:52 09/25/17 10:52 09/25/17 10:52 09/25/17 10:52 Oxygen Delivery Method Room Air Weight: 173.544 kg Body Mass Index (BMI) 63.6 Microbiology Past 72 Hours 09/25/17 08:00 Gram Stain - Final Wound - Leg, Left 09/25/17 08:00 Gram Stain - Final Wound - Leg, Right Laboratory Tests Past 24 Hrs 09/25/17 09/25/17 05:24 05:24 WBC 17.6 H RBC 3.30 L Hgb 10.3 L Hct 32.2 L MCV 97.6 MCH 31.2 MCHC 32.0 RDW 13.9 RDW Differential 47.2 H Plt Count 198 MPV 10.2 Immature Gran % (Auto) 0.200 Neut % (Auto) 92.3 H Lymph % (Auto) 4.7 L [place] % (Auto) 2.6 Eos % (Auto) 0.1 Baso % (Auto) 0.1 Absolute Neuts (auto) 16.3 H Absolute Lymphs (auto) 0.82 L Total Counted Not Reportable Sodium 140 Potassium 4.0 Chloride 105 Carbon Dioxide 29.0 Anion Gap 6 BUN 16 Creatinine 1.13 H Estim Creat Clear Calc 45.26 Est GFR (MDRD) Af Amer 62 Est GFR (MDRD) Non-Af 51 L BUN/Creatinine Ratio 14.2 Glucose 102 Calcium 8.3 L Magnesium 1.7 - Other Studies Radiology: [] reviewed Other Studies: [] Route of nutrition/ use of supplements: [] Nutritional Intake: [] IV Site: [] Banda Catheter: [] - Physical Exam General: Alert, Oriented x3, Cooperative, No apparent distress HEENT: Atraumatic, PERRLA, EOMI Neck: Supple, No Nodes Lungs: Clear to auscultation, Normal air movement Cardiovascular: Regular rate, Regular Rhythm Abdomen: Bowel Sounds Present, Soft, Non Tender, Non-Distended, Obese Extremities: Edema Skin: Ulcer/ Wound - reviewed photos, LLE ulcer with surrounding rednes IV Site: Peripheral Neurological: Cranial nerves II-XII grossly intact - Assessment/Plan Antibiotics: [] Assessment/Plan: [] Active and Suspected Problems Cellulitis (Acute) Cellulitis of leg, left (Acute) Prior cxs with MSSA, PsA, s. viridans, and GPR. Wound cx and MRSA pcr pending. Cont vanc/zosyn for now. Improving. Thank you, will follow.
[2017-09-25 14:54] VITALS: BP 136/72; PULSE 102; RESP 22; TEMP 37.1; O2SAT 98
--- NOTE | 2017-09-25 16:32 | CHAPLAIN ---
Type of Pastoral Visit _x__ Initial Visit ___ Follow-up Visit ___ On-call Visit ___ General Patient Visit ___ Spiritual Assessment ___ Family Conference ___ Bereavement ___ Rapid Response ___ Code Blue ___ Other (describe below) Pastoral Care Referral From _x__ Patient ___ Family ___ Nurse ___ Physician ___ Hardwood Flooring Specialist ___ Fuel Cell Assembler ___ Other (describe below) Sacrament/Intervention _x__ Active listening ___ Anointing ___ Baptist ___ Bereavement ___ Communion _x__ [place] exploration ___ ___ Life review _x__ Prayer ___ Reconciliation ___ Sacrament of Sick _x__ Supportive presence ___ Wedding ___ Other (describe below) Pastoral Comments
[2017-09-25 16:50] LABS: Bedside Glucose 132 mg/dL (70-110)
[2017-09-25 17:14] LABS: M R Staph aureus DNA By PCR Negative (Negative); Probe Check PASS; Specimen Processing Control PASS; Staph aureus DNA By PCR NEGATIVE (Negative)
[2017-09-25 17:19] LABS: International Normalized Ratio 2.9; Prothrombin Time (Protime)PT. 30.8 SECONDS (11.7-14.9)
[2017-09-25 22:00] VITALS: BP 114/67; PULSE 103; RESP 18; TEMP 36.8; O2SAT 94
[2017-09-25] MEDS: Gabapentin 300 MG Capsule PO (22:01)
[2017-09-25] MEDS: Atorvastatin Calcium 20 MG Tablet PO (22:01)
[2017-09-25 22:10] LABS: Bedside Glucose 141 mg/dL (70-110)
[2017-09-26] MEDS: Piperacil/Tazobactam 3.375 GM/50 ML ML IV ×3 (00:53→16:42)
[2017-09-26 02:55] VITALS: BP 110/58; PULSE 102; RESP 20; TEMP 37.3; O2SAT 95
[2017-09-26] MEDS: Levothyroxine 100 MCG Tablet PO (05:49)
[2017-09-26 06:51] LABS: Bedside Glucose 107 mg/dL (70-110)
[2017-09-26 07:15] LABS: International Normalized Ratio 2.8; Prothrombin Time (Protime)PT. 29.4 SECONDS (11.7-14.9)
[2017-09-26 09:22] LABS: Absolute Lymphocyte Count 0.99 X10^3/ul (0.83-4.51); Absolute Neutrophil Count 13.6 X10^3/uL (2.0-7.7); Basophil# 0.02 X10^3/uL; Basophil% 0.1 % (0-1); Eosinophil# 0.07 X10^3/uL; Eosinophils% 0.5 % (0-5); Hematocrit 29.3 % (37-47); Hemoglobin 9.3 g/dl (12.0-15.0); Lymphocyte # 0.99 X10^3/ul (4.0); Lymphocyte % 6.4 % (19-41); Mean Corp Hgb Conc 31.7 g/gl (32-36); Mean Corpuscular Volume 97.7 fL (81-99); Mean Platelet Vol. 10.7 fl (6.2-12.0); Monocyte% 5.2 % (0-10); Neutrophil # 13.61 X10^3/uL (2.7-7.7); Neutrophil % 87.5 % (47-70); POSITIVE COUNT NO; POSITIVE DIFFERENTIAL NO; POSITIVE MORPHOLOGY NO; Platelet Count 184 K/mm3 (150-450); RBC Distribution Width CV 13.8 % (11.6-14.6); RBC Distribution Width SD 47.4 fl (35.1-43.9); White Blood Count 15.5 K/mm3 (4.4-11.0)
--- NOTE | 2017-09-26 09:30 | PCM.PN.HOSP ---
Patient Problems: Active and Suspected Problems Cellulitis (Acute) Cellulitis of leg, left (Acute) Subjective: Patient was seen and examined. Feels much better, denies any fever or chills. No acute events overnight. Vitals have been remained stable with no fevers. Patient has a Banda catheter because she has incontinence of urine and has been soiling bilateral lower extremity JOVI dressing. Objective: Physical exam: General: Alert, Oriented x3, Cooperative, No apparent distress, supermorbidly obese HEENT: Atraumatic, PERRLA, EOMI, Normocephalic Oral: Moist Mucosa Neck: Supple Lungs: Clear to auscultation, Normal air movement Cardiovascular: Regular rate, Regular Rhythm, Normal S1, Normal S2, No murmurs Abdomen: Bowel Sounds Present, Soft, Non Tender, Non-Distended, No Hepato-splenomegaly Extremities: Edema - Bilateral lower extremity edema, with open areas with crustiness, severe all over up to the knee, chronic lymphedema, JOVI wraps to legs Skin: No rashes, No breakdown Musculoskeletal: No Tenderness to Palpation of Joints or Extremities Lymphatic: No Cervical, Supraclavicular, or Inguinal Adenopathy - edema Neurological: Cranial nerves II-XII grossly intact Psych/Mental Status: Normal Affect, Appropriate Vitals/I&O's: Vital Signs Temp Pulse Resp BP Pulse Ox 99.2 F H 102 H 20 H 110/58 L 95 09/26/17 02:55 09/26/17 02:55 09/26/17 02:55 09/26/17 02:55 09/26/17 02:55 Oxygen Delivery Method Room Air Weight: 173.544 kg Body Mass Index (BMI) 63.6 Intake and Output for Last 24 Hours 09/24/17 09/25/17 09/26/17 23:59 23:59 23:59 Intake Total 1263 / 1263 822 / 822 Output Total 850 / 850 750 / 750 Balance 413 / 413 72 / 72 Microbiology Past 72 Hours 09/25/17 08:00 Wound - Leg, Left Gram Stain - Final 09/25/17 08:00 Wound - Leg, Right Gram Stain - Final Laboratory Results 09/25/17 06:54: POC Glucose 110 09/25/17 08:36: S.aureus Protein A PCR NEGATIVE, MRSA (PCR) Negative 09/25/17 11:26: POC Glucose 129 H 09/25/17 16:21: PT 30.8 H, INR 2.9 09/25/17 16:42: POC Glucose 132 H 09/25/17 21:59: POC Glucose 141 H 09/26/17 06:03: PT 29.4 H, INR 2.8 09/26/17 06:03: WBC 15.5 H, RBC 3.00 L, Hgb 9.3 L, Hct 29.3 L, MCV 97.7, MCH 31.0, MCHC 31.7 L, RDW 13.8, RDW Differential 47.4 H, Plt Count 184, MPV 10.7, Immature Gran % (Auto) 0.300, Neut % (Auto) 87.5 H, Lymph % (Auto) 6.4 L, Kingfisher % (Auto) 5.2, Eos % (Auto) 0.5, Baso % (Auto) 0.1, Absolute Neuts (auto) 13.6 H, Absolute Lymphs (auto) 0.99, Total Counted Not Reportable 09/26/17 06:03: Sodium Pending, Potassium Pending, Chloride Pending, Carbon Dioxide Pending, Anion Gap Pending, BUN Pending, Creatinine Pending, Est GFR (MDRD) Af Amer Pending, Est GFR (MDRD) Non-Af Pending, BUN/Creatinine Ratio Pending, Glucose Pending, Calcium Pending 09/26/17 06:46: POC Glucose 107 Current Medications Acetaminophen (Tylenol) 650 mg PO Q6H PRN PRN PRN Reason: Mild Pain (scale 0-3)/T>100.7 Hydrocodone Bitart/Acetaminophen ([place] 5mg-325mg) 1 tablet PO Q8H PRN PRN PRN Reason: PAIN Al Hydroxide/Mg Hydroxide (Mylanta Ii) 30 ml PO Q6H PRN PRN PRN Reason: Gastric Burning Atorvastatin Calcium (Lipitor) 20 mg PO QHS [facility] Last Admin: 09/25/17 22:01 Dose: 20 mg Bisacodyl (Dulcolax) 10 mg PO DAILY PRN PRN PRN Reason: Constipation Dextrose (D50w Syringe) 0 gm IV X1 PRN; Protocol PRN Reason: Hypoglycemia Docusate Sodium (Colace) 200 mg PO BID PRN PRN PRN Reason: Constipation Famotidine (Pepcid) 20 mg PO DAILY [facility] Last Admin: 09/25/17 08:32 Dose: 20 mg Furosemide (Lasix) 60 mg PO DAILY [facility] Last Admin: 09/25/17 08:32 Dose: 60 mg Gabapentin (Neurontin) 300 mg PO QHS [facility] Last Admin: 09/25/17 22:01 Dose: 300 mg Glucagon () 1 mg IM .X1 PRN PRN Reason: Hypoglycemia Piperacillin Sod/Tazobactam Sod (Zosyn) 3.375 gm in 50 mls @ 12.5 mls/hr IV Q8H [facility] Last Admin: 09/26/17 00:53 Dose: 12.5 mls/hr Vancomycin HCl (Vancomycin) 1,000 mg in 200 mls @ 200 mls/hr IV Q12H [facility] Last Admin: 09/25/17 21:56 Dose: 200 mls/hr Insulin Aspart (Novolog Flexpen (Bkc)) 0 units SC ACHS [facility] PRN Reason: Protocol Last Admin: 09/26/17 07:19 Dose: Not Given Levothyroxine Sodium (Synthroid) 100 mcg PO DAILY@0600 [facility] Last Admin: 09/26/17 05:49 Dose: 100 mcg Lisinopril (Zestril) 20 mg PO DAILY [facility] Last Admin: 09/25/17 10:55 Dose: 20 mg Magnesium Hydroxide (Milk Of Magnesia) 30 ml PO DAILY PRN PRN PRN Reason: Constipation Magnesium Oxide (Mag-Ox 400) 400 mg PO BIDCM [facility] Last Admin: 09/25/17 16:57 Dose: 400 mg Melatonin (Melatonin) 3 - 6 mg PO QHS PRN PRN Reason: SLEEP Nutritional Formula (Lactose Free) (Glucerna Shake) 120 ml PO 4X/DAY [facility] Last Admin: 09/25/17 22:00 Dose: 120 ml Ondansetron HCl (Zofran) 4 mg IV Q8H PRN PRN PRN Reason: Nausea Oxycodone HCl (Oxyir) 5 mg PO Q4H PRN PRN PRN Reason: Moderate Pain (pain scale 4-5) Polyethylene Glycol (Miralax) 17 gm PO DAILY PRN PRN Reason: Constipation Sodium Chloride () 5 - 30 ml IV UD PRN PRN Reason: SALINE FLUSH Warfarin Sodium (Coumadin (Pbkc)) 2 mg PO SuMoWeFrSa@1700 [facility] Last Admin: 09/24/17 21:07 Dose: 2 mg Warfarin Sodium (Coumadin (Pbkc)) 3 mg PO TuTh@1700 [facility] Last Admin: 09/25/17 17:29 Dose: 3 mg Medical Necessity - Tobacco Use Smoking Status: Never smoker Assessment/Plan Active and Suspected Problems Cellulitis (Acute) Cellulitis of leg, left (Acute) 66-year-old female with past medical history of super morbid obesity, chronic lymphedema with chronic venous stasis ulcers bilaterally, chronically following in the wound care clinic, type 2 diabetes, hypertension, CKD stage III, who comes in with complaints of leg pain and shortness of breath. Patient was evaluated and admitted with cellulitis of a lower extremity. 1. Sepsis secondary to bilateral lower extremity cellulitis, improving, leukocytosis decreased to 15.5, no fevers seen, on vancomycin and Zosyn, MRSA PCR negative, will continue only on Zosyn and DC vancomycin, ID following 2. Bilateral lower extremities chronic venous ulcers/cellulitis, worse in the left lower extremity cellulitis, wound team following, on IV antibiotics, will continue to elevate legs. 2. Hypertension, controlled, continue on lisinopril 3. Type II DM, blood sugars are stable, off home metformin, on Accu-Cheks with insulin sliding scale. 4. Dyslipidemia, on statin 5. Hypothyroidism, on levothyroxine. 6. History of PE and DVT, on chronic anticoagulation, INR is therapeutic, on Coumadin. 7. Super morbid obesity, BMI 63.7, candidate for bariatric surgery, needs to follow-up in the outpatient 8. DVT prophylaxis - patient on Coumadin Code Visit Inpatient E&M: 32421 Subs Hosp L2
[2017-09-26 09:31] LABS: Anion Gap 6 (5-15); BUN 19 mg/dL (7-18); BUN/Creat Ratio 15.3 RATIO (10-20); Calcium,Total 8.3 mg/dL (8.5-10.1); Chloride 102 mmol/L (98-107); Creatinine, Serum 1.24 mg/dL (0.55-1.02); EST Glomerular Filtration Rate 46 mL/min (>60); Est Glom Filt Rate - Afr Amer 56 mL/min (>60); Estimated Creatinine Clearance 41.24 ml/min; Glucose 106 mg/dL (74-106); Potassium 3.5 mmol/L (3.5-5.1); Sodium Level 139 mmol/L (136-145)
--- NOTE | 2017-09-26 09:43 | PN_ITS ---
Patient Problems: Active and Suspected Problems Cellulitis (Acute) Cellulitis of leg, left (Acute) Subjective: Patient was seen and examined. Feels much better, denies any fever or chills. No acute events overnight. Vitals have been remained stable with no fevers. Patient has a Banda catheter because she has incontinence of urine and has been soiling bilateral lower extremity JOVI dressing. Objective: Physical exam: General: Alert, Oriented x3, Cooperative, No apparent distress, supermorbidly obese HEENT: Atraumatic, PERRLA, EOMI, Normocephalic Oral: Moist Mucosa Neck: Supple Lungs: Clear to auscultation, Normal air movement Cardiovascular: Regular rate, Regular Rhythm, Normal S1, Normal S2, No murmurs Abdomen: Bowel Sounds Present, Soft, Non Tender, Non-Distended, No Hepato- splenomegaly Extremities: Edema - Bilateral lower extremity edema, with open areas with crustiness, severe all over up to the knee, chronic lymphedema, JOVI wraps to legs Skin: No rashes, No breakdown Musculoskeletal: No Tenderness to Palpation of Joints or Extremities Lymphatic: No Cervical, Supraclavicular, or Inguinal Adenopathy - edema Neurological: Cranial nerves II-XII grossly intact Psych/Mental Status: Normal Affect, Appropriate Vitals/I&O's: Vital Signs Temp Pulse Resp BP Pulse Ox 99.2 F H 102 H 20 H 110/58 L 95 09/26/17 02:55 09/26/17 02:55 09/26/17 02:55 09/26/17 02:55 09/26/17 02:55 Oxygen Delivery Method Room Air Weight: 173.544 kg Body Mass Index (BMI) 63.6 Intake and Output for Last 24 Hours 09/24/17 09/25/17 09/26/17 23:59 23:59 23:59 Intake Total 1263 / 1263 822 / 822 Output Total 850 / 850 750 / 750 Balance 413 / 413 72 / 72 Microbiology Past 72 Hours 09/25/17 08:00 Wound - Leg, Left Gram Stain - Final 09/25/17 08:00 Wound - Leg, Right Gram Stain - Final Laboratory Results 09/25/17 06:54: POC Glucose 110 09/25/17 08:36: S.aureus Protein A PCR NEGATIVE, MRSA (PCR) Negative 09/25/17 11:26: POC Glucose 129 H 09/25/17 16:21: PT 30.8 H, INR 2.9 09/25/17 16:42: POC Glucose 132 H 09/25/17 21:59: POC Glucose 141 H 09/26/17 06:03: PT 29.4 H, INR 2.8 09/26/17 06:03: WBC 15.5 H, RBC 3.00 L, Hgb 9.3 L, Hct 29.3 L, MCV 97.7, MCH 31.0, MCHC 31.7 L, RDW 13.8, RDW Differential 47.4 H, Plt Count 184, MPV 10.7, Immature Gran % (Auto) 0.300, Neut % (Auto) 87.5 H, Lymph % (Auto) 6.4 L, Christian % (Auto) 5.2, Eos % (Auto) 0.5, Baso % (Auto) 0.1, Absolute Neuts (auto) 13.6 H , Absolute Lymphs (auto) 0.99, Total Counted Not Reportable 09/26/17 06:03: Sodium Pending, Potassium Pending, Chloride Pending, Carbon Dioxide Pending, Anion Gap Pending, BUN Pending, Creatinine Pending, Est GFR ( MDRD) Af Amer Pending, Est GFR (MDRD) Non-Af Pending, BUN/Creatinine Ratio Pending, Glucose Pending, Calcium Pending 09/26/17 06:46: POC Glucose 107 Current Medications Acetaminophen (Tylenol) 650 mg PO Q6H PRN PRN PRN Reason: Mild Pain (scale 0-3)/T>100.7 Hydrocodone Bitart/Acetaminophen ([place] 5mg-325mg) 1 tablet PO Q8H PRN PRN PRN Reason: PAIN Al Hydroxide/Mg Hydroxide (Mylanta Ii) 30 ml PO Q6H PRN PRN PRN Reason: Gastric Burning Atorvastatin Calcium (Lipitor) 20 mg PO QHS [facility] Last Admin: 09/25/17 22:01 Dose: 20 mg Bisacodyl (Dulcolax) 10 mg PO DAILY PRN PRN PRN Reason: Constipation Dextrose (D50w Syringe) 0 gm IV X1 PRN; Protocol PRN Reason: Hypoglycemia Docusate Sodium (Colace) 200 mg PO BID PRN PRN PRN Reason: Constipation Famotidine (Pepcid) 20 mg PO DAILY [facility] Last Admin: 09/25/17 08:32 Dose: 20 mg Furosemide (Lasix) 60 mg PO DAILY [facility] Last Admin: 09/25/17 08:32 Dose: 60 mg Gabapentin (Neurontin) 300 mg PO QHS [facility] Last Admin: 09/25/17 22:01 Dose: 300 mg Glucagon () 1 mg IM .X1 PRN PRN Reason: Hypoglycemia Piperacillin Sod/Tazobactam Sod (Zosyn) 3.375 gm in 50 mls @ 12.5 mls/hr IV Q8H [facility] Last Admin: 09/26/17 00:53 Dose: 12.5 mls/hr Vancomycin HCl (Vancomycin) 1,000 mg in 200 mls @ 200 mls/hr IV Q12H [facility] Last Admin: 09/25/17 21:56 Dose: 200 mls/hr Insulin Aspart (Novolog Flexpen (Bkc)) 0 units SC ACHS [facility] PRN Reason: Protocol Last Admin: 09/26/17 07:19 Dose: Not Given Levothyroxine Sodium (Synthroid) 100 mcg PO DAILY@0600 [facility] Last Admin: 09/26/17 05:49 Dose: 100 mcg Lisinopril (Zestril) 20 mg PO DAILY [facility] Last Admin: 09/25/17 10:55 Dose: 20 mg Magnesium Hydroxide (Milk Of Magnesia) 30 ml PO DAILY PRN PRN PRN Reason: Constipation Magnesium Oxide (Mag-Ox 400) 400 mg PO BIDCM [facility] Last Admin: 09/25/17 16:57 Dose: 400 mg Melatonin (Melatonin) 3 - 6 mg PO QHS PRN PRN Reason: SLEEP Nutritional Formula (Lactose Free) (Glucerna Shake) 120 ml PO 4X/DAY [facility] Last Admin: 09/25/17 22:00 Dose: 120 ml Ondansetron HCl (Zofran) 4 mg IV Q8H PRN PRN PRN Reason: Nausea Oxycodone HCl (Oxyir) 5 mg PO Q4H PRN PRN PRN Reason: Moderate Pain (pain scale 4-5) Polyethylene Glycol (Miralax) 17 gm PO DAILY PRN PRN Reason: Constipation Sodium Chloride () 5 - 30 ml IV UD PRN PRN Reason: SALINE FLUSH Warfarin Sodium (Coumadin (Pbkc)) 2 mg PO SuMoWeFrSa@1700 [facility] Last Admin: 09/24/17 21:07 Dose: 2 mg Warfarin Sodium (Coumadin (Pbkc)) 3 mg PO TuTh@1700 [facility] Last Admin: 09/25/17 17:29 Dose: 3 mg Medical Necessity - Tobacco Use Smoking Status: Never smoker Assessment/Plan Active and Suspected Problems Cellulitis (Acute) Cellulitis of leg, left (Acute) 66-year-old female with past medical history of super morbid obesity, chronic lymphedema with chronic venous stasis ulcers bilaterally, chronically following in the wound care clinic, type 2 diabetes, hypertension, CKD stage III, who comes in with complaints of leg pain and shortness of breath. Patient was evaluated and admitted with cellulitis of a lower extremity. 1. Sepsis secondary to bilateral lower extremity cellulitis, improving, leukocytosis decreased to 15.5, no fevers seen, on vancomycin and Zosyn, MRSA PCR negative, will continue only on Zosyn and DC vancomycin, ID following 2. Bilateral lower extremities chronic venous ulcers/cellulitis, worse in the left lower extremity cellulitis, wound team following, on IV antibiotics, will continue to elevate legs. 2. Hypertension, controlled, continue on lisinopril 3. Type II DM, blood sugars are stable, off home metformin, on Accu-Cheks with insulin sliding scale. 4. Dyslipidemia, on statin 5. Hypothyroidism, on levothyroxine. 6. History of PE and DVT, on chronic anticoagulation, INR is therapeutic, on Coumadin. 7. Super morbid obesity, BMI 63.7, candidate for bariatric surgery, needs to follow-up in the outpatient 8. DVT prophylaxis - patient on Coumadin Code Visit Inpatient E&M: 11590 Subs Hosp L2
[2017-09-26 09:49] VITALS: BP 115/65; PULSE 99; RESP 20; TEMP 37.3; O2SAT 94
[2017-09-26] MEDS: Furosemide 40 MG Tablet 60 MG PO (09:57)
[2017-09-26] MEDS: Famotidine 20 MG Tablet PO (09:57)
[2017-09-26] MEDS: Magnesium Oxide 400 MG Tablet PO ×2 (09:57→16:40)
[2017-09-26] MEDS: Lisinopril 20 MG Tablet PO (09:57)
--- NOTE | 2017-09-26 11:29 | CASEMGMT ---
Social Work Note DEEJAY met with pt to discuss discharge planning. SW explained to pt that she is max assist and that pt/ot is recommending skilled therapy for pt to gain strength. Pt was receptive to this. DEEJAY asked pt her preferences for skilled facility placement. Pt states that she has no preference and SW asked pt if she would be interested in TCU. SW states that she would have to ask TCU if they have a bed available. DEEJAY placed call to Catherine in TCU. Per Catherine she is unsure of the bed situation at this time. [facility] states she may have a bed tomorrow but is unsure. DEEJAY asked [facility] to take a look at pt anyway to see if she would accept her. DEEJAY received call from [facility] in TCU stating that she will have a bed for tomorrow. DEEJAY states that pt will be ready for discharge tomorrow. 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
[2017-09-26 11:56] LABS: Bedside Glucose 166 mg/dL (70-110)
--- NOTE | 2017-09-26 12:16 | PN.ID_ITS ---
Patient Problems: Active and Suspected Problems Cellulitis (Acute) Cellulitis of leg, left (Acute) Subjective: Feeling better, no leg pain, no n/v/d. - Physical Exam General: Alert, Cooperative Lungs: Clear to auscultation, Normal air movement Cardiovascular: Regular rate, Regular Rhythm Abdomen: Soft, Non Tender, Non-Distended Extremities: Edema Skin: Rash Present - improving on LLE Vital Signs Temp Pulse Resp BP Pulse Ox 99.2 F H 99 20 H 115/65 94 09/26/17 09:49 09/26/17 09:49 09/26/17 09:49 09/26/17 09:49 09/26/17 09:49 Oxygen Delivery Method Room Air Weight: 173.544 kg Body Mass Index (BMI) 63.6 Intake and Output for Last 24 Hours 09/24/17 09/25/17 09/26/17 23:59 23:59 23:59 Intake Total 1263 / 1263 822 / 822 Output Total 850 / 850 750 / 750 Balance 413 / 413 72 / 72 Microbiology Past 72 Hours 09/25/17 08:00 Gram Stain - Final Wound - Leg, Right Wound Culture - Preliminary GNR Poss Pseudomonas sp 09/25/17 08:00 Gram Stain - Final Wound - Leg, Left Wound Culture - Preliminary No growth-Final to follow Laboratory Tests Past 24 Hrs 09/25/17 09/25/17 09/26/17 08:36 16:21 06:03 WBC RBC Hgb Hct MCV MCH MCHC RDW RDW Differential Plt Count MPV Immature Gran % (Auto) Neut % (Auto) Lymph % (Auto) Angelina % (Auto) Eos % (Auto) Baso % (Auto) Absolute Neuts (auto) Absolute Lymphs (auto) Total Counted PT 30.8 H 29.4 H INR 2.9 2.8 Sodium Potassium Chloride Carbon Dioxide Anion Gap BUN Creatinine Estim Creat Clear Calc Est GFR (MDRD) Af Amer Est GFR (MDRD) Non-Af BUN/Creatinine Ratio Glucose Calcium S.aureus Protein A PCR NEGATIVE MRSA (PCR) Negative 09/26/17 09/26/17 06:03 06:03 WBC 15.5 H RBC 3.00 L Hgb 9.3 L Hct 29.3 L MCV 97.7 MCH 31.0 MCHC 31.7 L RDW 13.8 RDW Differential 47.4 H Plt Count 184 MPV 10.7 Immature Gran % (Auto) 0.300 Neut % (Auto) 87.5 H Lymph % (Auto) 6.4 L Angelina % (Auto) 5.2 Eos % (Auto) 0.5 Baso % (Auto) 0.1 Absolute Neuts (auto) 13.6 H Absolute Lymphs (auto) 0.99 Total Counted Not Reportable PT INR Sodium 139 Potassium 3.5 Chloride 102 Carbon Dioxide 31.0 Anion Gap 6 BUN 19 H Creatinine 1.24 H Estim Creat Clear Calc 41.24 Est GFR (MDRD) Af Amer 56 L Est GFR (MDRD) Non-Af 46 L BUN/Creatinine Ratio 15.3 Glucose 106 Calcium 8.3 L S.aureus Protein A PCR MRSA (PCR) POC Glucose 09/26/17 09/26/17 09/25/17 11:40 06:46 21:59 POC Glucose 166 H 107 141 H 09/25/17 16:42 POC Glucose 132 H Medical Necessity - Tobacco Use Smoking Status: Never smoker Route of nutrition/ use of supplements: [] Nutritional Intake: [] IV Site: [] Banda Catheter: [] - Assessment/Plan Antibiotics: [] Assessment/Plan: [] Active and Suspected Problems Cellulitis (Acute) Cellulitis of leg, left (Acute) Prior cxs with MSSA, PsA, s. viridans, and GPR. MRSA pcr here neg. Wound cx with PsA-like. Stop vanc, continue zosyn. Leg much improved. If susceptible, plan will be for her to go on po levaquin 750mg qday for 5 more days. Will follow, d/w primary team
--- NOTE | 2017-09-26 13:43 | CASEMGMT ---
Social Work Note Per RN Elle, pt has concerns that she will lose her apartment if she goes to a nursing facility. SW met with pt to discuss and process concerns. SW updated pt that TCU will have a bed for her tomorrow. SW utilized active listening skills and provided support to pt. SW informed pt that pt's casemanager Laura Garcia will be informed that pt will be going to TCU and that her aide services will be made aware that pt will going to a senior living facility. Pt was receptive to this and states that she is feeling better about going to TCU. 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
[2017-09-26 14:44] VITALS: BP 100/59; PULSE 88; RESP 16; TEMP 36.9; O2SAT 93
[2017-09-26] MEDS: Glucerna Shake 120 ML LIQUID PO ×3 (14:49→21:34)
[2017-09-26 17:11] LABS: Bedside Glucose 151 mg/dL (70-110)
[2017-09-26] MEDS: Gabapentin 300 MG Capsule PO (21:35)
[2017-09-26] MEDS: Atorvastatin Calcium 20 MG Tablet PO (21:36)
[2017-09-26 21:41] VITALS: BP 96/61; PULSE 88; RESP 20; TEMP 36.9; O2SAT 93
[2017-09-26 22:51] LABS: Bedside Glucose 168 mg/dL (70-110)
[2017-09-27] MEDS: Piperacil/Tazobactam 3.375 GM/50 ML ML IV (00:51)
[2017-09-27 04:10] VITALS: BP 100/65; PULSE 86; RESP 20; TEMP 36.9; O2SAT 94
[2017-09-27] MEDS: Levothyroxine 100 MCG Tablet PO (06:20)
[2017-09-27 06:30] LABS: Bedside Glucose 119 mg/dL (70-110)
[2017-09-27 08:07] LABS: Absolute Neutrophil Count 9.8 X10^3/uL (2.0-7.7); Basophil# 0.01 X10^3/uL; Basophil% 0.1 % (0-1); Eosinophils% 0.9 % (0-5); Hematocrit 28.4 % (37-47); Lymphocyte % 8.5 % (19-41); Mean Corp Hgb Conc 31.7 g/gl (32-36); Mean Corpuscular Hgb 30.3 pg (27.0-32.0); Mean Corpuscular Volume 95.6 fL (81-99); Mean Platelet Vol. 10.5 fl (6.2-12.0); Monocyte# 0.81 X10^3/uL; Monocyte% 6.9 % (0-10); Neutrophil # 9.82 X10^3/uL (2.7-7.7); Neutrophil % 83.4 % (47-70); POSITIVE COUNT NO; POSITIVE DIFFERENTIAL NO; POSITIVE MORPHOLOGY NO; Platelet Count 180 K/mm3 (150-450); Prothrombin Time (Protime)PT. 31.1 SECONDS (11.7-14.9); RBC Distribution Width CV 14.1 % (11.6-14.6); RBC Distribution Width SD 49.3 fl (35.1-43.9); Red Blood Count 2.97 M/mm3 (4.2-5.4); White Blood Count 11.8 K/mm3 (4.4-11.0)
[2017-09-27 08:12] LABS: Anion Gap 9 (5-15); BUN 21 mg/dL (7-18); BUN/Creat Ratio 17.4 RATIO (10-20); Calcium,Total 8.3 mg/dL (8.5-10.1); Chloride 104 mmol/L (98-107); Creatinine, Serum 1.21 mg/dL (0.55-1.02); EST Glomerular Filtration Rate 48 mL/min (>60); Est Glom Filt Rate - Afr Amer 58 mL/min (>60); Estimated Creatinine Clearance 42.27 ml/min; Glucose 126 mg/dL (74-106); Potassium 3.7 mmol/L (3.5-5.1); Sodium Level 140 mmol/L (136-145)
[2017-09-27 09:00] VITALS: BP 98/57; PULSE 88; RESP 20; TEMP 37; O2SAT 95
--- NOTE | 2017-09-27 09:12 | PCM.TXEXTCAR ---
- Diet 09/24/17 17:48 Diet: Regular Diet Food consistency:: Regular Liquid Consistency:: Regular/Thin Is pt able to select menu?: Yes - Routine Orders/Code Status Routine Lab Work: CBC - in 3 days, BMP - in 3 days, INR - daily - Wound(s) L anterior loredo Wound Type: stasis blister Dressing Change: Adaptic L posterior calf Wound Type: Stasis Ulcer Dressing Change: Dry Sterile Dressing R lateral ankle Wound Type: blistered area Dressing Change: Adaptic R posterior calf Wound Type: Stasis Ulcer Dressing Change: Adaptic R medial calf Wound Type: Stasis Ulcer Dressing Change: AntiMicrobial (Aquacel AG, etc) R anterior loredo Wound Type: stasis blister Dressing Change: Adaptic - Therapies Weight Bearing: Weight bearing as tolerated Extremity Affected:: Bilateral Lower Physical Therapy: Eval and Treat Occupational Therapy: Eval and Treat - Allergies/Procedures Done in Hospital Allergies/Adverse Reactions: Allergies No Known Allergies Allergy (Verified 09/24/17 11:32) Procedures: None - Type of Care/Length of Stay Estimated LOS: Convalescent Care Less Than 30 days Type of Care Needed: Skilled Rehab Potential: Good Prognosis: Good - Additional Orders/Day of Discharge Additional Orders: Consider discontinuing the duong catheter - was put in because of urine incontinence and soiling of bilateral leg dressings. Day of Discharge: 09/27/17 - Dietary and Speech Recommendations Dietitian Recommendations/Changes: Suggest diet change to 2000 Calorie Controlled r/t hx of T2DM. Suggest 1 pkt Quoc BID for improved wound healing - please order from pharmacy - Follow Up Care Primary Care Physician: Sebastián Smith MD [Primary Care Provider] - Please follow up with your Primary Care Physician in: within 2 weeks of discharge
[2017-09-27] MEDS: Magnesium Oxide 400 MG Tablet PO (09:13)
--- NOTE | 2017-09-27 09:20 | PCM.DC.SUM ---
Discharge Date and Diagnosis - Problem List Patient Problems: Active and Suspected Problems Cellulitis (Acute) Cellulitis of leg, left (Acute) Date of Admission: 09/24/17 Date of Discharge: 09/27/17 - Primary Discharge Diagnosis Active and Suspected Problems Cellulitis (Acute) Cellulitis of leg, left (Acute) - Secondary Discharge Diagnosis Chronic Problems Morbid obesity (Chronic) Hypothyroidism (Chronic) GERD (gastroesophageal reflux disease) (Chronic) Diabetes mellitus (Chronic) Chronic Lymphedema (Chronic) Unspecified open wound, left thigh, initial encounter (Chronic) Venous stasis ulcer of left lower leg with edema of left lower leg (Chronic) Lymphedema of both lower extremities (Chronic) Venous stasis ulcer of right lower leg with edema of right lower leg (Chronic) Cellulitis of leg, right (Chronic) Hospital Course and Treatment Imaging Results: Clinical Impression(s) from Imaging Studies Chest X-Ray 09/24/17 13:15 IMPRESSION: Mild cardiomegaly. Electronically Signed: Blayne Garcia MD at 13:53 EDT Tel [phone], Service support , Consultations 09/24/17 18:06 Consult: Onc/Wound/label designer Routine Comment: wound care consult Reason for Consult:: venous stasis woulds, lymphedema Comments:: patient is followed in would care clinic Infectious disease Operations: None Procedures: None Summary of Care Provided: 66-year-old female with past medical history of super morbid obesity, chronic lymphedema with chronic venous stasis ulcers bilaterally, chronically following in the wound care clinic, type 2 diabetes, hypertension, CKD stage III, who comes in with complaints of leg pain and shortness of breath. Patient was evaluated and admitted with cellulitis of a lower extremity. 1. Sepsis secondary to bilateral lower extremity cellulitis, left worse than right, present on admission, with associated leucocytosis, managed initially on vancomycin and Zosyn, MRSA PCR negative, ID following, discharged on Levaquin for 5 days. 2. Bilateral lower extremities chronic venous ulcers/cellulitis, worse in the left lower extremity cellulitis, wound team following, on antibiotics, status post Banda catheter to prevent soiling of wounds. 2. Hypertension, controlled, on lisinopril 3. Type II DM, blood sugars are stable, on home metformin, and ISS 4. Dyslipidemia, on statin 5. Hypothyroidism, on levothyroxine. 6. History of PE and DVT, on chronic anticoagulation, INR is therapeutic, on Coumadin. 7. Super morbid obesity, BMI 63.7, candidate for bariatric surgery, needs to follow-up in the outpatient Discharge Diet: Low fat/ Low Cholesterol, 2400 Calorie Control Diet, 2000 mg Sodium Diet Discharge Activity: Return to Normal Activity Home Medications: Medications to take at Discharge Atorvastatin Calcium [Lipitor] 20 mg PO QHS 09/18/14 Hydrocodone/Acetaminophen [Hydrocodon-Acetaminophen 5-325] 1 each PO Q8H PRN PRN 09/18/14 Levothyroxine Sodium [Levoxyl] 100 mcg PO DAILY 09/18/14 Lisinopril [Zestril] 20 mg PO DAILY 09/18/14 Metformin HCl [Glucophage] 500 mg PO BIDCM 09/18/14 Warfarin [Coumadin] 3 mg PO TUTH 09/18/14 Furosemide 60 mg PO DAILY 03/21/16 Gabapentin [Neurontin] 300 mg PO QHS 09/29/16 Collagenase [Santyl] 1 applic TOPICAL DAILY 05/04/17 Ondansetron [Zofran Odt] 4 mg PO Q8H PRN PRN #10 tab 09/20/17 Magnesium Oxide [Mag-Ox 400] 400 mg PO BIDCM 09/24/17 Warfarin [Coumadin] 2 mg PO SUMOWEFRSA 09/24/17 Famotidine [Pepcid] 20 mg PO DAILY tablet 09/27/17 Melatonin 3 - 6 mg PO QHS PRN tablet 09/27/17 levoFLOXacin tablet [Levaquin tablet] 750 mg PO Q48H #5 tablet 09/27/17 Primary Care Physician: Sebastián Smith MD [Primary Care Provider] - Please follow up with your Primary Care Physician in: within 2 weeks of discharge Disposition: Retirement facility Minutes spent on discharge:: 25 Patient Condition:: Stable Medical Necessity - Tobacco Use Smoking Status: Never smoker Meaningful Use Info Meaningful Use Diagnoses (Choose all that apply): None applicable Code Visit Inpatient E&M: 27612 Disch Hosp
[2017-09-27 10:00] VITALS: PULSE 88; RESP 20
[2017-09-27] MEDS: Furosemide 40 MG Tablet 60 MG PO (11:12)
[2017-09-27] MEDS: Famotidine 20 MG Tablet PO (11:12)
[2017-09-27] MEDS: Lisinopril 20 MG Tablet PO (11:13)
[2017-09-27 13:06] LABS: Bedside Glucose 134 mg/dL (70-110)
[2017-09-27 15:30] VITALS: BP 107/80; PULSE 91; RESP 20; TEMP 36.6; O2SAT 97
[2017-09-27 16:20] VITALS: PULSE 91; RESP 20
--- NOTE | 2017-09-27 16:57 | NURSING ---
1313 called report to [facility] Haydee PATEL. pt informed and will send dinner to [facility]. Pranav Whipple RN
--- NOTE | 2017-09-29 09:03 | CASEMGMT ---
Social Work Note PT discharged to TCU Friday. SW placed call to pt's nurse midwife Laura Antonio at [facility] to inform her that pt dishcharged to TCU Friday. 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
== END 2017-09-27 16:50 | disposition skilled nursing facility (03) | DRG 872 ==
LOC: ED 16:47 → MS3 17:50
PROVIDERS: Admitting Provider Internal Medicine; Emergency Provider Emergency Medicine; Family Provider Internal Medicine; PCP Internal Medicine; Visit Provider Internal Medicine
DX: A41.9 Sepsis, unspecified organism (principal); L03.116 Cellulitis of left lower limb; L03.115 Cellulitis of right lower limb; Z68.44 Body mass index [BMI] 60.0-69.9, adult; L97.221 Non-pressure chronic ulcer of left calf limited to breakdown of skin; L97.211 Non-pressure chronic ulcer of right calf limited to breakdown of skin; E11.22 Type 2 diabetes mellitus with diabetic chronic kidney disease; N18.3 Chronic kidney disease, stage 3 (moderate); I87.2 Venous insufficiency (chronic) (peripheral); I12.9 Hypertensive chronic kidney disease with stage 1 through stage 4 chronic kidney disease, or unspecified chronic kidney disease; I89.0 Lymphedema, not elsewhere classified; R32 Unspecified urinary incontinence; E03.9 Hypothyroidism, unspecified; E78.5 Hyperlipidemia, unspecified; K21.9 Gastro-esophageal reflux disease without esophagitis; E66.01 Morbid (severe) obesity due to excess calories; Z79.01 Long term (current) use of anticoagulants; Z79.84 Long term (current) use of oral hypoglycemic drugs; Z79.899 Other long term (current) drug therapy; Z86.718 Personal history of other venous thrombosis and embolism; Z86.711 Personal history of pulmonary embolism
CPT/HCPCS: 36415; 71046; 80048; 81001; 82962; 83735; 85025; 85610; 87070; 87077; 87184; 87186; 87205; 87640; 93005; 97162; 97166; 97530; 97802; 99285; J7040; J7050; P9612; A4216

== ENCOUNTER 2017-09-27 17:00 | Inpatient (IN) | payer MEDICARE, MEDICAID, SELFPAY ==
[2017-09-27 17:26] VITALS: BP 112/73; PULSE 77; RESP 20; TEMP 37.1; O2SAT 95
--- NOTE | 2017-09-27 17:26 | NURSING ---
R' ADMITTED FROM [facility] AT 1700 VIA BED.
--- NOTE | 2017-09-27 17:29 | NURSING ---
CALLED DR. GOMEZ TO VERIFY LEVAQUIN STOP DATE. STATED LEVAQUIN 750MG QOD X5 DAYS D/T KIDNEY FUNCTION.
--- NOTE | 2017-09-27 18:14 | PCM.HP.STD ---
Problem List (1) Super obesity Status: Chronic (2) Venous stasis ulcers of both lower extremities Status: Chronic (3) Hypertension Status: Chronic (4) Hyperlipidemia Status: Chronic (5) DVT (deep venous thrombosis) Status: Chronic (6) Pulmonary embolism Status: Chronic (7) Neuropathic pain Status: Chronic (8) Nausea Status: Chronic (9) Hypomagnesemia Status: Chronic (10) Cellulitis of leg, left Status: Acute (11) Hypothyroidism Status: Chronic (12) GERD (gastroesophageal reflux disease) Status: Chronic (13) Diabetes mellitus Status: Chronic (14) Chronic Lymphedema Status: Chronic History of Present Illness Date of Admission: 09/27/17 Chief Complaint: Here for rehabilitation, strengthening, prior to discharge home alone. The patient is a 66 year old Female with below past medical history presented to [facility] Emergency Department 09/24/2017 with acute on chronic lymphedema. 09/24/2017 Chest X-ray mild cardiomegaly. Chronic lymphedema, wound care center weekly for wraps. Lasix, Albumin fluid. Swelling worse, Nausea, on warfarin for pulmonary embolism/deep vein thrombosis. EKG sinus rhythm, heart rate 114, WBC 19.5, Hemoglobin, Hematocrit normal. Cr 1.37, INR 3.0, UA negative. Bilateral lower extremities red, warm. IV Zosyn given for left lower extremity cellulitis. 09/24/2017 Admit to Hospital. Vancomycin, Zosyn IV left lower extremity cellulitis. Consult Infectious Disease. 09/25/2017 Wound cultures pending 09/25/2017 Dr. Florez noted previous cultures grew MSSA, PsA, S. Viridans, GPR. Continue Vancomycin, Zosyn pending culture results. 09/26/2017 MRSA negative, stop Vancomycin, continue Zosyn. Elevated legs for lymphedema. 09/26/2017 Dr. Florez recommended stopping Vancomycin, Plan for oral Levaquin 750MG every other day for 5 more days. Levaquin thru 10/03/2017. Consider referral for bariatric surgery. 09/27/2017 Admit to TCU for rehabilitation, strengthening, wound care, prior to discharge home alone. Past Medical History Past Medical History (Chronic Problems): Chronic Problems Super obesity (Chronic) Venous stasis ulcers of both lower extremities (Chronic) Hypertension (Chronic) Hyperlipidemia (Chronic) DVT (deep venous thrombosis) (Chronic) Pulmonary embolism (Chronic) Neuropathic pain (Chronic) Nausea (Chronic) Hypomagnesemia (Chronic) Morbid obesity (Chronic) Hypothyroidism (Chronic) GERD (gastroesophageal reflux disease) (Chronic) Diabetes mellitus (Chronic) Chronic Lymphedema (Chronic) Unspecified open wound, left thigh, initial encounter (Chronic) Venous stasis ulcer of left lower leg with edema of left lower leg (Chronic) Lymphedema of both lower extremities (Chronic) Venous stasis ulcer of right lower leg with edema of right lower leg (Chronic) Cellulitis of leg, right (Chronic) Allergies No Known Allergies Allergy (Verified 09/24/17 11:32) Home Medications: Ambulatory Orders Medication Instructions Recorded Atorvastatin Calcium [Lipitor] 20 mg PO QHS 09/18/14 Hydrocodone/Acetaminophen 5 - 325 each PO Q8H PRN PRN 09/18/14 [Hydrocodon-Acetaminophen 5-325] Levothyroxine Sodium [Levoxyl] 100 mcg PO DAILY 09/18/14 Lisinopril [Zestril] 20 mg PO DAILY 09/18/14 Metformin HCl [Glucophage] 500 mg PO BIDCM 09/18/14 Warfarin [Coumadin] 3 mg PO TUTH 09/18/14 Furosemide 60 mg PO DAILY 03/21/16 Gabapentin [Neurontin] 300 mg PO QHS 09/29/16 Collagenase [Santyl] 1 applic TOPICAL DAILY 05/04/17 Ondansetron [Zofran Odt] 4 mg PO Q8H PRN PRN #10 tab 09/20/17 Magnesium Oxide [Mag-Ox 400] 400 mg PO BIDCM 09/24/17 Warfarin [Coumadin] 2 mg PO SUMOWEFRSA 09/24/17 Famotidine [Pepcid] 20 mg PO DAILY 09/27/17 Melatonin 3 - 6 mg PO QHS PRN tablet 09/27/17 levoFLOXacin tablet [Levaquin 750 mg PO Q48H 09/27/17 tablet] Surgical History: appendectomy, hysterectomy, tonsillectomy Psychiatric History: No pertinent psych hx REJOGGER History: No pertinent REJOGGER history Lives: Alone Smoking Status: Never smoker Tobacco Use: Non-smoker Alcohol: None Drugs: None - *Family History Maternal History Items: Diabetes Paternal History Items: Diabetes Review of Systems Constitutional: Denies: Chills, Fever, Weight Change HEENT: Denies: Head Aches, Sinus Congestion, Sinus Drainage Cardiovascular: Denies: Chest Pain, Palpitations Respiratory: Denies: Cough, Shortness of breath at rest, Sputum production Gastrointestinal: Denies: Abdominal Pain, Nausea, Vomiting Genitourinary: Denies: Dysuria Musculoskeletal: Denies: Joint Pain, Joint Tenderness Skin: Denies: Rash, Wounds Neurological: Denies: Numbness, Tingling, Focal weakness Psychiatric: Denies: Anxiety, Depression, Homicidal Ideations, Suicidal Ideations Hematologic/ Lymphatic: Denies: Easy Bruising, Easy Bleeding VTE Information - Inpt Only VTE Present on Admission: No VTE Mechan Device Prophylaxis: Knee High LARRY Hose VTE Pharm Prophylaxis ordered?: Yes - Physical Exam General: Alert, Oriented x3, Cooperative HEENT: Atraumatic, PERRLA, EOMI, Normocephalic Neck: Supple, No JVD, Negative Carotid Bruits Lungs: Clear to auscultation, Normal air movement Cardiovascular: Regular rate, No murmurs Abdomen: Bowel Sounds Present, Soft, Non Tender Extremities: - - Dusky erythema left lower extremity. Skin: No rashes, No breakdown Musculoskeletal: No Tenderness to Palpation of Joints or Extremities Neurological: Cranial nerves II-XII grossly intact Psych/Mental Status: Normal Affect, Appropriate Assessment/Plan 66 year old female with below past medical history significant for chronic lymphedema, super obesity, hospitalized for left lower extremity cellulitis, admitted to TCU with debility, here or rehabilitation, strengthening, prior to discharge home alone. Debility - PT/OT. Pain - Tylenol 1000MG Q8H PRN mild pain, [place] 5/325MG 1 tablet Q8H PRN moderate pain. Bowel - Miralax 17GM daily, Senna/colace 2 tablets BID, Dulcolax 10MG PO daily PRN. Pneumonia vaccination - Administer Prevnar 13 and/or Pneumovax 23 as necessary. DVT prophylaxis - Not necessary, on coumadin. Hyperlipidemia - Atorvastatin 20MG QHS. Bilateral lower extremity venous stasis ulcers - Santyl topically daily, Quoc 1 packet BID, consult Trudy Zarate RN. GERD - Famotidine 20MG daily. Lymphedema - Lasix 60MG daily. Neuropathic pain - Gabapentin 300MG QHS. Nutrition - Glucerna 120ML 4x/day. Left lower extremity cellulitis - Levaquin 750MG Q48H thru 10/03/2017. Hypothyroidism - Levothyroxine 100MCG daily. Hypertension - Lisinopril 20MG daily. Hypomagnesemia - Magnesium Oxide 400MG BID. Insomnia - Melatonin 3-6MG QHS PRN. Diabetes Mellitus II - Metformin 500MG BID. Nausea - Zofran 4MG Q8H PRN. DVT/PE - Coumadin 2MG 5 days/week, 3MG 2 days/week.
--- NOTE | 2017-09-27 18:25 | HP.PCM_ITS ---
Problem List (1) Super obesity Status: Chronic (2) Venous stasis ulcers of both lower extremities Status: Chronic (3) Hypertension Status: Chronic (4) Hyperlipidemia Status: Chronic (5) DVT (deep venous thrombosis) Status: Chronic (6) Pulmonary embolism Status: Chronic (7) Neuropathic pain Status: Chronic (8) Nausea Status: Chronic (9) Hypomagnesemia Status: Chronic (10) Cellulitis of leg, left Status: Acute (11) Hypothyroidism Status: Chronic (12) GERD (gastroesophageal reflux disease) Status: Chronic (13) Diabetes mellitus Status: Chronic (14) Chronic Lymphedema Status: Chronic History of Present Illness Date of Admission: 09/27/17 Chief Complaint: Here for rehabilitation, strengthening, prior to discharge home alone. The patient is a 66 year old Female with below past medical history presented to [facility] Emergency Department 09/24/2017 with acute on chronic lymphedema. 09/24/2017 Chest X-ray mild cardiomegaly. Chronic lymphedema, wound care center weekly for wraps. Lasix, Albumin fluid. Swelling worse, Nausea, on warfarin for pulmonary embolism/deep vein thrombosis. EKG sinus rhythm, heart rate 114, WBC 19.5, Hemoglobin, Hematocrit normal. Cr 1.37, INR 3.0, UA negative. Bilateral lower extremities red, warm. IV Zosyn given for left lower extremity cellulitis. 09/24/2017 Admit to Hospital. Vancomycin, Zosyn IV left lower extremity cellulitis. Consult Infectious Disease. 09/25/2017 Wound cultures pending 09/25/2017 Dr. Florez noted previous cultures grew MSSA, PsA, S. Viridans, GPR. Continue Vancomycin, Zosyn pending culture results. 09/26/2017 MRSA negative, stop Vancomycin, continue Zosyn. Elevated legs for lymphedema. 09/26/2017 Dr. Florez recommended stopping Vancomycin, Plan for oral Levaquin 750MG every other day for 5 more days. Levaquin thru 10/03/2017. Consider referral for bariatric surgery. 09/27/2017 Admit to TCU for rehabilitation, strengthening, wound care, prior to discharge home alone. Past Medical History Past Medical History (Chronic Problems): Chronic Problems Super obesity (Chronic) Venous stasis ulcers of both lower extremities (Chronic) Hypertension (Chronic) Hyperlipidemia (Chronic) DVT (deep venous thrombosis) (Chronic) Pulmonary embolism (Chronic) Neuropathic pain (Chronic) Nausea (Chronic) Hypomagnesemia (Chronic) Morbid obesity (Chronic) Hypothyroidism (Chronic) GERD (gastroesophageal reflux disease) (Chronic) Diabetes mellitus (Chronic) Chronic Lymphedema (Chronic) Unspecified open wound, left thigh, initial encounter (Chronic) Venous stasis ulcer of left lower leg with edema of left lower leg (Chronic) Lymphedema of both lower extremities (Chronic) Venous stasis ulcer of right lower leg with edema of right lower leg (Chronic) Cellulitis of leg, right (Chronic) Allergies No Known Allergies Allergy (Verified 09/24/17 11:32) Home Medications: Ambulatory Orders Medication Instructions Recorded Atorvastatin Calcium [Lipitor] 20 mg PO QHS 09/18/14 Hydrocodone/Acetaminophen 5 - 325 each PO Q8H PRN PRN 09/18/14 [Hydrocodon-Acetaminophen 5-325] Levothyroxine Sodium [Levoxyl] 100 mcg PO DAILY 09/18/14 Lisinopril [Zestril] 20 mg PO DAILY 09/18/14 Metformin HCl [Glucophage] 500 mg PO BIDCM 09/18/14 Warfarin [Coumadin] 3 mg PO TUTH 09/18/14 Furosemide 60 mg PO DAILY 03/21/16 Gabapentin [Neurontin] 300 mg PO QHS 09/29/16 Collagenase [Santyl] 1 applic TOPICAL DAILY 05/04/17 Ondansetron [Zofran Odt] 4 mg PO Q8H PRN PRN #10 tab 09/20/17 Magnesium Oxide [Mag-Ox 400] 400 mg PO BIDCM 09/24/17 Warfarin [Coumadin] 2 mg PO SUMOWEFRSA 09/24/17 Famotidine [Pepcid] 20 mg PO DAILY 09/27/17 Melatonin 3 - 6 mg PO QHS PRN tablet 09/27/17 levoFLOXacin tablet [Levaquin 750 mg PO Q48H 09/27/17 tablet] Surgical History: appendectomy, hysterectomy, tonsillectomy Psychiatric History: No pertinent psych hx MICA SIZER History: No pertinent MICA SIZER history Lives: Alone Smoking Status: Never smoker Tobacco Use: Non-smoker Alcohol: None Drugs: None - *Family History Maternal History Items: Diabetes Paternal History Items: Diabetes Review of Systems Constitutional: Denies: Chills, Fever, Weight Change HEENT: Denies: Head Aches, Sinus Congestion, Sinus Drainage Cardiovascular: Denies: Chest Pain, Palpitations Respiratory: Denies: Cough, Shortness of breath at rest, Sputum production Gastrointestinal: Denies: Abdominal Pain, Nausea, Vomiting Genitourinary: Denies: Dysuria Musculoskeletal: Denies: Joint Pain, Joint Tenderness Skin: Denies: Rash, Wounds Neurological: Denies: Numbness, Tingling, Focal weakness Psychiatric: Denies: Anxiety, Depression, Homicidal Ideations, Suicidal Ideations Hematologic/ Lymphatic: Denies: Easy Bruising, Easy Bleeding VTE Information - Inpt Only VTE Present on Admission: No VTE Mechan Device Prophylaxis: Knee High LARRY Hose VTE Pharm Prophylaxis ordered?: Yes - Physical Exam General: Alert, Oriented x3, Cooperative HEENT: Atraumatic, PERRLA, EOMI, Normocephalic Neck: Supple, No JVD, Negative Carotid Bruits Lungs: Clear to auscultation, Normal air movement Cardiovascular: Regular rate, No murmurs Abdomen: Bowel Sounds Present, Soft, Non Tender Extremities: - - Dusky erythema left lower extremity. Skin: No rashes, No breakdown Musculoskeletal: No Tenderness to Palpation of Joints or Extremities Neurological: Cranial nerves II-XII grossly intact Psych/Mental Status: Normal Affect, Appropriate Assessment/Plan 66 year old female with below past medical history significant for chronic lymphedema, super obesity, hospitalized for left lower extremity cellulitis, admitted to TCU with debility, here or rehabilitation, strengthening, prior to discharge home alone. * Debility - PT/OT. * Pain - Tylenol 1000MG Q8H PRN mild pain, [place] 5/325MG 1 tablet Q8H PRN moderate pain. * Bowel - Miralax 17GM daily, Senna/colace 2 tablets BID, Dulcolax 10MG PO daily PRN. * Pneumonia vaccination - Administer Prevnar 13 and/or Pneumovax 23 as necessary. * DVT prophylaxis - Not necessary, on coumadin. * Hyperlipidemia - Atorvastatin 20MG QHS. * Bilateral lower extremity venous stasis ulcers - Santyl topically daily, Quoc 1 packet BID, consult Trudy Zarate RN. * GERD - Famotidine 20MG daily. * Lymphedema - Lasix 60MG daily. * Neuropathic pain - Gabapentin 300MG QHS. * Nutrition - Glucerna 120ML 4x/day. * Left lower extremity cellulitis - Levaquin 750MG Q48H thru 10/03/2017. * Hypothyroidism - Levothyroxine 100MCG daily. * Hypertension - Lisinopril 20MG daily. * Hypomagnesemia - Magnesium Oxide 400MG BID. * Insomnia - Melatonin 3-6MG QHS PRN. * Diabetes Mellitus II - Metformin 500MG BID. * Nausea - Zofran 4MG Q8H PRN. * DVT/PE - Coumadin 2MG 5 days/week, 3MG 2 days/week.
[2017-09-27 19:11] LABS: Bedside Glucose 153 mg/dL (70-110)
[2017-09-27] MEDS: Atorvastatin Calcium 10 MG Tablet 20 MG PO (20:26)
[2017-09-27] MEDS: Glucerna Shake 120 ML LIQUID PO (20:27)
[2017-09-27] MEDS: Gabapentin 300 MG Capsule PO (20:27)
[2017-09-27 21:31] LABS: Bedside Glucose 165 mg/dL (70-110)
[2017-09-27 22:38] VITALS: BMI 63.4
[2017-09-27 22:42] VITALS: BMI 63.4
[2017-09-28] MEDS: Senna/Docusate Sodium 1 Tablet 2 TABLET PO (05:28)
[2017-09-28] MEDS: Levothyroxine 100 MCG Tablet PO (05:28)
[2017-09-28] MEDS: levoFLOXacin 750 MG Tablet PO (05:28)
[2017-09-28] MEDS: Famotidine 20 MG Tablet PO (05:28)
[2017-09-28] MEDS: Lisinopril 20 MG Tablet PO (05:28)
[2017-09-28] MEDS: Furosemide 40 MG Tablet 60 MG PO (05:29)
[2017-09-28] MEDS: Glucerna Shake 120 ML LIQUID PO ×4 (05:29→21:26)
[2017-09-28] MEDS: Collagenase 30gm Tube 1 APPLIC TOPICAL (05:35)
[2017-09-28 06:51] LABS: Bedside Glucose 127 mg/dL (70-110)
[2017-09-28 07:02] VITALS: PULSE 74; RESP 18
[2017-09-28 08:31] LABS: International Normalized Ratio 2.9; Prothrombin Time (Protime)PT. 30.5 SECONDS (11.7-14.9)
[2017-09-28] MEDS: Magnesium Oxide 400 MG Tablet PO ×2 (09:04→17:44)
[2017-09-28] MEDS: Tuberculin,Purif.prot.deriv. 50 TU/ML Vial 5 ML ID (10:41)
--- NOTE | 2017-09-28 12:51 | NURSING ---
Dr. Tolbert reviewed INRs, NNO
[2017-09-28 15:31] VITALS: BP 126/73; PULSE 51; RESP 18; TEMP 36.4; O2SAT 87
[2017-09-28 16:50] LABS: Bedside Glucose 138 mg/dL (70-110)
[2017-09-28 21:26] LABS: Bedside Glucose 180 mg/dL (70-110)
[2017-09-28] MEDS: Gabapentin 300 MG Capsule PO (21:26)
[2017-09-28] MEDS: Atorvastatin Calcium 10 MG Tablet 20 MG PO (21:27)
[2017-09-29] MEDS: Glucerna Shake 120 ML LIQUID PO ×3 (05:33→20:19)
[2017-09-29] MEDS: Furosemide 40 MG Tablet 60 MG PO (05:36)
[2017-09-29] MEDS: Lisinopril 20 MG Tablet PO (05:37)
[2017-09-29] MEDS: Levothyroxine 100 MCG Tablet PO (05:37)
[2017-09-29] MEDS: Famotidine 20 MG Tablet PO (05:37)
--- NOTE | 2017-09-29 05:43 | NURSING ---
GAINES REMOVED PER ORDER. PATIENT BRIAN PROCEDURE WELL. WILL CONT TO MONITOR
[2017-09-29 06:30] LABS: International Normalized Ratio 2.7; Prothrombin Time (Protime)PT. 29.2 SECONDS (11.7-14.9)
[2017-09-29 06:40] LABS: Bedside Glucose 121 mg/dL (70-110)
[2017-09-29] MEDS: Magnesium Oxide 400 MG Tablet PO ×2 (08:25→17:41)
--- NOTE | 2017-09-29 10:19 | NURSING ---
wound photo: right lateral lower leg
--- NOTE | 2017-09-29 10:20 | NURSING ---
wound photo: right posteromedial lower leg
--- NOTE | 2017-09-29 10:21 | NURSING ---
wound photo: left anterior/lateral lower leg
--- NOTE | 2017-09-29 10:21 | NURSING ---
wound photo: left medial lower leg
--- NOTE | 2017-09-29 13:28 | PCM.PN.RX ---
<Clif Solorzano - Last Filed: 09/29/17 13:28> Progress Note - Pharmacy Subjective: TCU Admission Objective: Allergies No Known Allergies Allergy (Verified 09/24/17 11:32) Home Medications Medication Instructions Recorded Atorvastatin Calcium [Lipitor] 20 mg PO QHS 09/18/14 Hydrocodone/Acetaminophen 5 - 325 each PO Q8H PRN PRN 09/18/14 [Hydrocodon-Acetaminophen 5-325] Levothyroxine Sodium [Levoxyl] 100 mcg PO DAILY 09/18/14 Lisinopril [Zestril] 20 mg PO DAILY 09/18/14 Metformin HCl [Glucophage] 500 mg PO BIDCM 09/18/14 Warfarin [Coumadin] 3 mg PO TUTH 09/18/14 Furosemide 60 mg PO DAILY 03/21/16 Gabapentin [Neurontin] 300 mg PO QHS 09/29/16 Collagenase [Santyl] 1 applic TOPICAL DAILY 05/04/17 Ondansetron [Zofran Odt] 4 mg PO Q8H PRN PRN #10 tab 09/20/17 Magnesium Oxide [Mag-Ox 400] 400 mg PO BIDCM 09/24/17 Warfarin [Coumadin] 2 mg PO SUMOWEFRSA 09/24/17 Famotidine [Pepcid] 20 mg PO DAILY 09/27/17 Melatonin 3 - 6 mg PO QHS PRN tablet 09/27/17 levoFLOXacin tablet [Levaquin 750 mg PO Q48H 09/27/17 tablet] Current Medications Generic Name Dose Route Start Last Admin Trade Name Freq PRN Reason Stop Dose Admin Acetaminophen 1,000 mg 09/27/17 18:39 Tylenol PO Q8H PRN PRN MILD PAIN (1-3/10) Hydrocodone Bitart/Acetaminophen 1 tablet 09/27/17 18:14 [place] 5mg-325mg PO Q8H PRN PRN PAIN Atorvastatin Calcium 20 mg 09/27/17 22:00 09/28/17 21:27 Lipitor PO 20 mg QHS YAIMA Administration Bisacodyl 10 mg 09/27/17 18:39 Dulcolax PO DAILY PRN Constipation Famotidine 20 mg 09/28/17 06:00 09/29/17 05:37 Pepcid PO 20 mg DAILY [facility]AIMA Administration Furosemide 60 mg 09/28/17 06:00 09/29/17 05:36 Lasix PO 60 mg DAILY [facility] Administration Gabapentin 300 mg 09/27/17 22:00 09/28/17 21:26 Neurontin PO 300 mg QHS [facility] Administration Levofloxacin 750 mg 09/28/17 06:00 09/28/17 05:28 Levaquin Tablet PO 10/03/17 06:01 750 mg Q48H YAIMA Administration Levothyroxine Sodium 100 mcg 09/28/17 06:00 09/29/17 05:37 Synthroid PO 100 mcg DAILY [facility] Administration Lisinopril 20 mg 09/28/17 06:00 09/29/17 05:37 Zestril PO 20 mg DAILY [facility] Administration Magnesium Oxide 400 mg 09/28/17 08:00 09/29/17 08:25 Mag-Ox 400 PO 400 mg BIDCM [facility] Administration Melatonin 3 - 6 mg 09/27/17 18:14 Melatonin PO QHS PRN SLEEP Metformin HCl 500 mg 09/28/17 08:00 09/29/17 10:54 Glucophage PO 500 mg BIDCM [facility] Administration Nutritional Formula 1 packet 09/28/17 08:00 09/29/17 08:25 Quoc - [place] Flavor [facility] Nutritional Formula (Lactose Free) 120 ml 09/27/17 22:00 09/29/17 11:49 Glucerna Shake PO 120 ml 4X/DAY [facility] Administration Ondansetron HCl 4 mg 09/27/17 18:14 Zofran Odt PO Q8H PRN PRN NAUSEA Polyethylene Glycol 17 gm 09/28/17 06:00 09/29/17 05:36 Miralax PO Not Given DAILY [facility] Senna/Docusate Sodium 2 tablet 09/28/17 06:00 09/29/17 05:36 Senokot-S, Nettie-Colace PO Not Given BID [facility] Tuberculin PPD 5 tu 10/05/17 10:00 Tubersol, Aplisol, Ppd ID 10/05/17 10:01 X1 ONE Warfarin Sodium 2 mg 09/27/17 19:30 09/28/17 17:44 Coumadin (Pbkc) PO 2 mg SuMoWeFrSa@1700 [facility] Administration Warfarin Sodium 3 mg 09/30/17 17:00 Coumadin (Pbkc) PO TuTh@1700 [facility] Problem List Super obesity (Chronic) Venous stasis ulcers of both lower extremities (Chronic) Hypertension (Chronic) Hyperlipidemia (Chronic) DVT (deep venous thrombosis) (Chronic) Pulmonary embolism (Chronic) Neuropathic pain (Chronic) Nausea (Chronic) Hypomagnesemia (Chronic) Vital Signs Temp Pulse Resp BP Pulse Ox 97.6 F L 51 L 18 126/73 H 87 09/28/17 15:31 09/28/17 15:31 09/28/17 15:31 09/28/17 15:31 09/28/17 15:31 Oxygen Delivery Method Room Air Weight: 173.1 kg Body Mass Index (BMI) 63.4 Assessment/Plan: * 1) Pain APAP for mild pain, gabapentin, hydrocodone/APAP for pain. Continue to monitor prn medication use, daily pain scores. * Overlapping instructions for hydrocodone/APAP (Pain) and APAP (mild pain). Please clarify and update. Thank you. 2) HLD Atorvastatin at HS. No recent lipids in EMR, hepatic enzymes wnl. Continue to monitor lipids, enzymes. 3) HTN Lisinopril daily. BP within goal range, K wnl, BUN/SCr at baseline. Continue to monitor BP, renal function, electrolytes. 4) ID Levofloxacin renally adjusted until 10/03/17. WBC wnl, afebrile. Continue to monitor s/s infection. 5) Hypothyroidism Levothyroxine daily. Continue to monitor s/s hyper/hypothyroidism. 6) Lymphedema Furosemide daily. Continue to monitor electrolytes, renal function. 7) DVT/PE Warfarin daily, goal INR 2-3. Hgb/Hct below baseline but stable, INR within goal range at this time. Continue to monitor PT/INR, hgb/hct, s/s bleeding/clot. 8) Nutrition Quoc, Glucerna, Mg. Continue to monitor clinically. 9) GI Famotidine daily, ondansetron prn. Continue to monitor for s/s GI distress, prn medication use. * 10) Sleep Melatonin at HS for sleep as needed. Medication is not usually effective given prn. Please consider scheduling or d/c. Psychotropic Medications: None Unnecessary Medications: None Bowel Regimen: 11) Senna/s, PEG, prn bisacodyl. Continue to monitor prn medication use, for constipation/diarrhea. Date of Note:: 09/29/17 - Provider Comments Provider responsibility: Provider responsible to enter orders to implement recommendations <Tomasz,Juan Chi - Last Filed: 09/29/17 17:42> Progress Note - Pharmacy Subjective: [] Objective: Allergies No Known Allergies Allergy (Verified 09/24/17 11:32) Home Medications Medication Instructions Recorded Atorvastatin Calcium [Lipitor] 20 mg PO QHS 09/18/14 Hydrocodone/Acetaminophen 5 - 325 each PO Q8H PRN PRN 09/18/14 [Hydrocodon-Acetaminophen 5-325] Levothyroxine Sodium [Levoxyl] 100 mcg PO DAILY 09/18/14 Lisinopril [Zestril] 20 mg PO DAILY 09/18/14 Metformin HCl [Glucophage] 500 mg PO BIDCM 09/18/14 Warfarin [Coumadin] 3 mg PO TUTH 09/18/14 Furosemide 60 mg PO DAILY 03/21/16 Gabapentin [Neurontin] 300 mg PO QHS 09/29/16 Collagenase [Santyl] 1 applic TOPICAL DAILY 05/04/17 Ondansetron [Zofran Odt] 4 mg PO Q8H PRN PRN #10 tab 09/20/17 Magnesium Oxide [Mag-Ox 400] 400 mg PO BIDCM 09/24/17 Warfarin [Coumadin] 2 mg PO SUMOWEFRSA 09/24/17 Famotidine [Pepcid] 20 mg PO DAILY 09/27/17 Melatonin 3 - 6 mg PO QHS PRN tablet 09/27/17 levoFLOXacin tablet [Levaquin 750 mg PO Q48H 09/27/17 tablet] Current Medications Generic Name Dose Route Start Last Admin Trade Name Freq PRN Reason Stop Dose Admin Acetaminophen 1,000 mg 09/27/17 18:39 Tylenol PO Q8H PRN PRN MILD PAIN (1-3/10) Hydrocodone Bitart/Acetaminophen 1 tablet 09/27/17 18:14 [place] 5mg-325mg PO Q8H PRN PRN PAIN Atorvastatin Calcium 20 mg 09/27/17 22:00 09/28/17 21:27 Lipitor PO 20 mg QHS YAIMA Administration Bisacodyl 10 mg 09/27/17 18:39 Dulcolax PO DAILY PRN Constipation Famotidine 20 mg 09/28/17 06:00 09/29/17 05:37 Pepcid PO 20 mg DAILY [facility] Administration Furosemide 60 mg 09/28/17 06:00 09/29/17 05:36 Lasix PO 60 mg DAILY [facility] Administration Gabapentin 300 mg 09/27/17 22:00 09/28/17 21:26 Neurontin PO 300 mg QHS [facility] Administration Levofloxacin 750 mg 09/28/17 06:00 09/28/17 05:28 Levaquin Tablet PO 10/03/17 06:01 750 mg Q48H [facility] Administration Levothyroxine Sodium 100 mcg 09/28/17 06:00 09/29/17 05:37 Synthroid PO 100 mcg DAILY [facility] Administration Lisinopril 20 mg 09/28/17 06:00 09/29/17 05:37 Zestril PO 20 mg DAILY [facility] Administration Magnesium Oxide 400 mg 09/28/17 08:00 09/29/17 08:25 Mag-Ox 400 PO 400 mg BIDCM [facility] Administration Melatonin 3 - 6 mg 09/27/17 18:14 Melatonin PO QHS PRN SLEEP Metformin HCl 500 mg 09/28/17 08:00 09/29/17 10:54 Glucophage PO 500 mg BIDCM [facility] Administration Nutritional Formula 1 packet 09/28/17 08:00 09/29/17 08:25 Quoc - [place] Flavor PO Not Given BIDCM [facility] Nutritional Formula (Lactose Free) 120 ml 09/27/17 22:00 09/29/17 11:49 Glucerna Shake PO 120 ml 4X/DAY [facility] Administration Ondansetron HCl 4 mg 09/27/17 18:14 Zofran Odt PO Q8H PRN PRN NAUSEA Polyethylene Glycol 17 gm 09/28/17 06:00 09/29/17 05:36 Miralax PO Not Given DAILY [facility] Senna/Docusate Sodium 2 tablet 09/28/17 06:00 09/29/17 05:36 Senokot-S, Nettie-Colace PO Not Given BID [facility] Tuberculin PPD 5 tu 10/05/17 10:00 Tubersol, Aplisol, Ppd ID 10/05/17 10:01 X1 ONE Warfarin Sodium 2 mg 09/27/17 19:30 09/28/17 17:44 Coumadin (Pbkc) PO 2 mg SuMoWeFrSa@1700 [facility] Administration Warfarin Sodium 3 mg 09/30/17 17:00 Coumadin (Pbkc) PO TuTh@1700 [facility] Problem List Super obesity (Chronic) Venous stasis ulcers of both lower extremities (Chronic) Hypertension (Chronic) Hyperlipidemia (Chronic) DVT (deep venous thrombosis) (Chronic) Pulmonary embolism (Chronic) Neuropathic pain (Chronic) Nausea (Chronic) Hypomagnesemia (Chronic) Vital Signs Temp Pulse Resp BP Pulse Ox 97.6 F L 96 20 H 133/90 H 91 09/29/17 15:38 09/29/17 15:38 09/29/17 15:38 09/29/17 15:38 09/29/17 15:38 Oxygen Delivery Method Room Air Weight: 173.1 kg Body Mass Index (BMI) 63.4 Assessment/Plan: Psychotropic Medications: Unnecessary Medications: Bowel Regimen: - Provider Comments Provider responsibility: Provider responsible to enter orders to implement recommendations Provider Comments to Recommendations by Pharmacy: Agree
--- NOTE | 2017-09-29 13:58 | PHA.CONS_ITS ---
<Clif Solorzano - Last Filed: 09/29/17 13:28> Progress Note - Pharmacy Subjective: TCU Admission Objective: Allergies No Known Allergies Allergy (Verified 09/24/17 11:32) Home Medications Medication Instructions Recorded Atorvastatin Calcium [Lipitor] 20 mg PO QHS 09/18/14 Hydrocodone/Acetaminophen 5 - 325 each PO Q8H PRN PRN 09/18/14 [Hydrocodon-Acetaminophen 5-325] Levothyroxine Sodium [Levoxyl] 100 mcg PO DAILY 09/18/14 Lisinopril [Zestril] 20 mg PO DAILY 09/18/14 Metformin HCl [Glucophage] 500 mg PO BIDCM 09/18/14 Warfarin [Coumadin] 3 mg PO TUTH 09/18/14 Furosemide 60 mg PO DAILY 03/21/16 Gabapentin [Neurontin] 300 mg PO QHS 09/29/16 Collagenase [Santyl] 1 applic TOPICAL DAILY 05/04/17 Ondansetron [Zofran Odt] 4 mg PO Q8H PRN PRN #10 tab 09/20/17 Magnesium Oxide [Mag-Ox 400] 400 mg PO BIDCM 09/24/17 Warfarin [Coumadin] 2 mg PO SUMOWEFRSA 09/24/17 Famotidine [Pepcid] 20 mg PO DAILY 09/27/17 Melatonin 3 - 6 mg PO QHS PRN tablet 09/27/17 levoFLOXacin tablet [Levaquin 750 mg PO Q48H 09/27/17 tablet] Current Medications Generic Name Dose Route Start Last Admin Trade Name Freq PRN Reason Stop Dose Admin Acetaminophen 1,000 mg 09/27/17 18:39 Tylenol PO Q8H PRN PRN MILD PAIN (1-3/10) Hydrocodone Bitart/Acetaminophen 1 tablet 09/27/17 18:14 [place] 5mg-325mg PO Q8H PRN PRN PAIN Atorvastatin Calcium 20 mg 09/27/17 22:00 09/28/17 21:27 Lipitor PO 20 mg QHS [facility] Administration Bisacodyl 10 mg 09/27/17 18:39 Dulcolax PO DAILY PRN Constipation Famotidine 20 mg 09/28/17 06:00 09/29/17 05:37 Pepcid PO 20 mg DAILY [facility] Administration Furosemide 60 mg 09/28/17 06:00 09/29/17 05:36 Lasix PO 60 mg DAILY [facility] Administration Gabapentin 300 mg 09/27/17 22:00 09/28/17 21:26 Neurontin PO 300 mg QHS [facility] Administration Levofloxacin 750 mg 09/28/17 06:00 09/28/17 05:28 Levaquin Tablet PO 10/03/17 06:01 750 mg Q48H [facility]IM[facility] Administration Levothyroxine Sodium 100 mcg 09/28/17 06:00 09/29/17 05:37 Synthroid PO 100 mcg DAILY [facility] Administration Lisinopril 20 mg 09/28/17 06:00 09/29/17 05:37 Zestril PO 20 mg DAILY [facility] Administration Magnesium Oxide 400 mg 09/28/17 08:00 09/29/17 08:25 Mag-Ox 400 PO 400 mg BIDCM [facility] Administration Melatonin 3 - 6 mg 09/27/17 18:14 Melatonin PO QHS PRN SLEEP Metformin HCl 500 mg 09/28/17 08:00 09/29/17 10:54 Glucophage PO 500 mg BIDCM [facility] Administration Nutritional Formula 1 packet 09/28/17 08:00 09/29/17 08:25 Quoc - [place] Flavor PO [facility] Nutritional Formula (Lactose Free) 120 ml 09/27/17 22:00 09/29/17 11:49 Glucerna Shake PO 120 ml 4X/DAY [facility] Administration Ondansetron HCl 4 mg 09/27/17 18:14 Zofran Odt PO Q8H PRN PRN NAUSEA Polyethylene Glycol 17 gm 09/28/17 06:00 09/29/17 05:36 Miralax PO Not Given DAILY [facility] Senna/Docusate Sodium 2 tablet 09/28/17 06:00 09/29/17 05:36 Senokot-S, Nettie-Colace PO Not Given BID [facility] Tuberculin PPD 5 tu 10/05/17 10:00 Tubersol, Aplisol, Ppd ID 10/05/17 10:01 X1 ONE Warfarin Sodium 2 mg 09/27/17 19:30 09/28/17 17:44 Coumadin (Pbkc) PO 2 mg SuMoWeFrSa@1700 [facility] Administration Warfarin Sodium 3 mg 09/30/17 17:00 Coumadin (Pbkc) PO TuTh@1700 [facility] Problem List Super obesity (Chronic) Venous stasis ulcers of both lower extremities (Chronic) Hypertension (Chronic) Hyperlipidemia (Chronic) DVT (deep venous thrombosis) (Chronic) Pulmonary embolism (Chronic) Neuropathic pain (Chronic) Nausea (Chronic) Hypomagnesemia (Chronic) Vital Signs Temp Pulse Resp BP Pulse Ox 97.6 F L 51 L 18 126/73 H 87 09/28/17 15:31 09/28/17 15:31 09/28/17 15:31 09/28/17 15:31 09/28/17 15:31 Oxygen Delivery Method Room Air Weight: 173.1 kg Body Mass Index (BMI) 63.4 Assessment/Plan: * 1) Pain APAP for mild pain, gabapentin, hydrocodone/APAP for pain. Continue to monitor prn medication use, daily pain scores. * Overlapping instructions for hydrocodone/APAP (Pain) and APAP (mild pain). Please clarify and update. Thank you. 2) HLD Atorvastatin at HS. No recent lipids in EMR, hepatic enzymes wnl. Continue to monitor lipids, enzymes. 3) HTN Lisinopril daily. BP within goal range, K wnl, BUN/SCr at baseline. Continue to monitor BP, renal function, electrolytes. 4) ID Levofloxacin renally adjusted until 10/03/17. WBC wnl, afebrile. Continue to monitor s/s infection. 5) Hypothyroidism Levothyroxine daily. Continue to monitor s/s hyper/hypothyroidism. 6) Lymphedema Furosemide daily. Continue to monitor electrolytes, renal function. 7) DVT/PE Warfarin daily, goal INR 2-3. Hgb/Hct below baseline but stable, INR within goal range at this time. Continue to monitor PT/INR, hgb/hct, s/s bleeding/clot. 8) Nutrition Quoc, Glucerna, Mg. Continue to monitor clinically. 9) GI Famotidine daily, ondansetron prn. Continue to monitor for s/s GI distress, prn medication use. * 10) Sleep Melatonin at HS for sleep as needed. Medication is not usually effective given prn. Please consider scheduling or d/c. Psychotropic Medications: None Unnecessary Medications: None Bowel Regimen: 11) Senna/s, PEG, prn bisacodyl. Continue to monitor prn medication use, for constipation/diarrhea. Date of Note:: 09/29/17 - Provider Comments Provider responsibility: Provider responsible to enter orders to implement recommendations <Tomasz,Juan Chi - Last Filed: 09/29/17 17:42> Progress Note - Pharmacy Subjective: [] Objective: Allergies No Known Allergies Allergy (Verified 09/24/17 11:32) Home Medications Medication Instructions Recorded Atorvastatin Calcium [Lipitor] 20 mg PO QHS 09/18/14 Hydrocodone/Acetaminophen 5 - 325 each PO Q8H PRN PRN 09/18/14 [Hydrocodon-Acetaminophen 5-325] Levothyroxine Sodium [Levoxyl] 100 mcg PO DAILY 09/18/14 Lisinopril [Zestril] 20 mg PO DAILY 09/18/14 Metformin HCl [Glucophage] 500 mg PO BIDCM 09/18/14 Warfarin [Coumadin] 3 mg PO TUTH 09/18/14 Furosemide 60 mg PO DAILY 03/21/16 Gabapentin [Neurontin] 300 mg PO QHS 09/29/16 Collagenase [Santyl] 1 applic TOPICAL DAILY 05/04/17 Ondansetron [Zofran Odt] 4 mg PO Q8H PRN PRN #10 tab 09/20/17 Magnesium Oxide [Mag-Ox 400] 400 mg PO BIDCM 09/24/17 Warfarin [Coumadin] 2 mg PO SUMOWEFRSA 09/24/17 Famotidine [Pepcid] 20 mg PO DAILY 09/27/17 Melatonin 3 - 6 mg PO QHS PRN tablet 09/27/17 levoFLOXacin tablet [Levaquin 750 mg PO Q48H 09/27/17 tablet] Current Medications Generic Name Dose Route Start Last Admin Trade Name Freq PRN Reason Stop Dose Admin Acetaminophen 1,000 mg 09/27/17 18:39 Tylenol PO Q8H PRN PRN MILD PAIN (1-3/10) Hydrocodone Bitart/Acetaminophen 1 tablet 09/27/17 18:14 [place] 5mg-325mg PO Q8H PRN PRN PAIN Atorvastatin Calcium 20 mg 09/27/17 22:00 09/28/17 21:27 Lipitor PO 20 mg QHS [facility] Administration Bisacodyl 10 mg 09/27/17 18:39 Dulcolax PO DAILY PRN Constipation Famotidine 20 mg 09/28/17 06:00 09/29/17 05:37 Pepcid PO 20 mg DAILY [facility] Administration Furosemide 60 mg 09/28/17 06:00 09/29/17 05:36 Lasix PO 60 mg DAILY [facility] Administration Gabapentin 300 mg 09/27/17 22:00 09/28/17 21:26 Neurontin PO 300 mg QHS [facility] Administration Levofloxacin 750 mg 09/28/17 06:00 09/28/17 05:28 Levaquin Tablet PO 10/03/17 06:01 750 mg Q48H [facility] Administration Levothyroxine Sodium 100 mcg 09/28/17 06:00 09/29/17 05:37 Synthroid PO 100 mcg DAILY [facility] Administration Lisinopril 20 mg 09/28/17 06:00 09/29/17 05:37 Zestril PO 20 mg DAILY [facility] Administration Magnesium Oxide 400 mg 09/28/17 08:00 09/29/17 08:25 Mag-Ox 400 PO 400 mg BIDCM [facility] Administration Melatonin 3 - 6 mg 09/27/17 18:14 Melatonin PO QHS PRN SLEEP Metformin HCl 500 mg 09/28/17 08:00 09/29/17 10:54 Glucophage PO 500 mg BIDCM [facility] Administration Nutritional Formula 1 packet 09/28/17 08:00 09/29/17 08:25 Quoc - [place] Flavor PO Not Given BIDCM [facility] Nutritional Formula (Lactose Free) 120 ml 09/27/17 22:00 09/29/17 11:49 Glucerna Shake PO 120 ml 4X/DAY [facility] Administration Ondansetron HCl 4 mg 09/27/17 18:14 Zofran Odt PO Q8H PRN PRN NAUSEA Polyethylene Glycol 17 gm 09/28/17 06:00 09/29/17 05:36 Miralax PO Not Given DAILY [facility] Senna/Docusate Sodium 2 tablet 09/28/17 06:00 09/29/17 05:36 Senokot-S, Nettie-Colace PO Not Given BID [facility] Tuberculin PPD 5 tu 10/05/17 10:00 Tubersol, Aplisol, Ppd ID 10/05/17 10:01 X1 ONE Warfarin Sodium 2 mg 09/27/17 19:30 09/28/17 17:44 Coumadin (Pbkc) PO 2 mg SuMoWeFrSa@1700 [facility] Administration Warfarin Sodium 3 mg 09/30/17 17:00 Coumadin (Pbkc) PO TuTh@1700 [facility] Problem List Super obesity (Chronic) Venous stasis ulcers of both lower extremities (Chronic) Hypertension (Chronic) Hyperlipidemia (Chronic) DVT (deep venous thrombosis) (Chronic) Pulmonary embolism (Chronic) Neuropathic pain (Chronic) Nausea (Chronic) Hypomagnesemia (Chronic) Vital Signs Temp Pulse Resp BP Pulse Ox 97.6 F L 96 20 H 133/90 H 91 09/29/17 15:38 09/29/17 15:38 09/29/17 15:38 09/29/17 15:38 09/29/17 15:38 Oxygen Delivery Method Room Air Weight: 173.1 kg Body Mass Index (BMI) 63.4 Assessment/Plan: Psychotropic Medications: Unnecessary Medications: Bowel Regimen: - Provider Comments Provider responsibility: Provider responsible to enter orders to implement recommendations Provider Comments to Recommendations by Pharmacy: Agree
--- NOTE | 2017-09-29 15:33 | CASEMGMT ---
Social Work Met with resident in room. This social work coordinator introduced self as well as social work role on the Transitional Care Unit. Resident requesting for discharge date to be set for 09/30/17, spoke with staff/therapy, 09/30/17 is not an agreeable discharge date at this time. Staff/therapy recommending for resident to continue with services. Resident is not agreeable to recommendation and continues to plan to discharge home on 09/30/17. Resident is open to home health services for physical and occupational therapy as well as fci and a home health aide. Resident active with [facility] home health care and is requesting for this social work coordinator to make a referral. Resident reporting to have transportation home and does not need this social work coordinator to set up transportation. Resident also declining for this social work coordinator to contact any support person for resident in regards to discharge plan/support. Resident has Mom's meals and a medical alert system. Resident [employer] disability case manager is Laura - [phone]. Resident voicing to have all needed durable medical equipment already set up within the home. Support given. Telephone call to Laura LUNA This social work coordinator leaving voicemail to have aides set back up (resident receives aides Mon-Fri for 3-4 hours each day). Telephone call to [facility], Intake. Voicemail left requesting a return phone call to make referral. Proposed discharge date: 09/30/17 PLAN: Discharge home alone with home health services and continued [employer] services. Ronit ARVIZU, [employer]
[2017-09-29 15:38] VITALS: BP 133/90; PULSE 96; RESP 20; TEMP 36.4; O2SAT 91
--- NOTE | 2017-09-29 15:42 | CASEMGMT ---
Brief interview for mental status (BIMS) and resident mood interview (PHQ-9) completed on this day. BIMS score 15. PHQ-9 score 07/19
[2017-09-29] MEDS: MELATONIN 3 MG TABLET 6 MG PO (20:17)
[2017-09-29] MEDS: Gabapentin 300 MG Capsule PO (20:17)
[2017-09-29] MEDS: Atorvastatin Calcium 10 MG Tablet 20 MG PO (20:17)
--- NOTE | 2017-09-29 21:05 | PCM.DC ---
- Discharge Diagnoses Current Active Problems: Current Active and Chronic Problems Super obesity (Chronic) Venous stasis ulcers of both lower extremities (Chronic) Hypertension (Chronic) Hyperlipidemia (Chronic) DVT (deep venous thrombosis) (Chronic) Pulmonary embolism (Chronic) Neuropathic pain (Chronic) Nausea (Chronic) Hypomagnesemia (Chronic) You will use the following diet at home:: No restrictions, Regular Your food should be the consistency of: Regular Your liquids should be the consistency of: Regular/Thin Discharge Activity: Return to Normal Activity, May Shower, Use Walker Weight Bearing Status: Weight bearing as tolerated Call your doctor if you observe: Fever of 101 or Higher, Inability to urinate, Inability to have a bowel movement, Shortness of breath, Chest pain, Uncontrolled pain Allergies/Adverse Reactions: Allergies No Known Allergies Allergy (Verified 09/24/17 11:32) Medications to take at Discharge Atorvastatin Calcium [Lipitor] 20 mg PO QHS 09/18/14 Hydrocodone/Acetaminophen [Hydrocodon-Acetaminophen 5-325] 5 - 325 each PO Q8H PRN PRN 09/18/14 Levothyroxine Sodium [Levoxyl] 100 mcg PO DAILY 09/18/14 Lisinopril [Zestril] 20 mg PO DAILY 09/18/14 Metformin HCl [Glucophage] 500 mg PO BIDCM 09/18/14 Warfarin [Coumadin] 3 mg PO TUTH 09/18/14 Furosemide 60 mg PO DAILY 03/21/16 Gabapentin [Neurontin] 300 mg PO QHS 09/29/16 Ondansetron [Zofran Odt] 4 mg PO Q8H PRN PRN #10 tab 09/20/17 Magnesium Oxide [Mag-Ox 400] 400 mg PO BIDCM 09/24/17 Warfarin [Coumadin] 2 mg PO SUMOWEFRSA 09/24/17 Famotidine [Pepcid] 20 mg PO DAILY 09/27/17 Melatonin 3 - 6 mg PO QHS PRN tablet 09/27/17 Acetaminophen [Tylenol] 1,000 mg PO Q8H PRN PRN tablet 09/29/17 Nutritional Supplement [Quoc - [place]ANGE FLAVOR] 1 packet PO BIDCM #60 packet 09/29/17 levoFLOXacin tablet [Levaquin tablet] 750 mg PO Q48H #2 tab 09/29/17 The following prescriptions were given: levoFLOXacin tablet [Levaquin tablet] 750 mg PO Q48H #2 tab Nutritional Supplement [Quoc - [place] FLAVOR] 1 packet PO BIDCM #60 packet Orders to be completed after discharge: Prothrombin Time w/INR Time Frame: 1 Day, Location: Laboratory Primary Care Physician: Sebastián Smith MD [Primary Care Provider] - Please follow up with your Primary Care Physician in: 1 week. Please Follow Up With: Francia Aparicio When: on discharge Please Follow Up With: [facility] When: 1 week. Proposed Discharge Date: 09/30/17
--- NOTE | 2017-09-29 21:10 | DS.PCM_ITS ---
Discharge Date and Diagnosis Date of Admission: 09/27/17 Date of Discharge: 09/30/17 - Secondary Discharge Diagnosis Chronic Problems Super obesity (Chronic) Venous stasis ulcers of both lower extremities (Chronic) Hypertension (Chronic) Hyperlipidemia (Chronic) DVT (deep venous thrombosis) (Chronic) Pulmonary embolism (Chronic) Neuropathic pain (Chronic) Nausea (Chronic) Hypomagnesemia (Chronic) Morbid obesity (Chronic) Hypothyroidism (Chronic) GERD (gastroesophageal reflux disease) (Chronic) Diabetes mellitus (Chronic) Chronic Lymphedema (Chronic) Unspecified open wound, left thigh, initial encounter (Chronic) Venous stasis ulcer of left lower leg with edema of left lower leg (Chronic) Lymphedema of both lower extremities (Chronic) Venous stasis ulcer of right lower leg with edema of right lower leg (Chronic) Cellulitis of leg, right (Chronic) Hospital Course and Treatment Imaging Results: 09/27/17 18:12 Diet: Calorie Controlled How many daily calories?: 1999 calorie Labs (Last 48 Hours) 09/27/17 09/28/17 09/28/17 21:21 06:31 07:55 PT 30.5 H INR 2.9 POC Glucose 165 H 127 H 09/28/17 09/28/17 09/29/17 16:47 21:18 05:10 PT 29.2 H INR 2.7 POC Glucose 138 H 180 H 09/29/17 06:20 PT INR POC Glucose 121 H Consultations 09/27/17 Consult: Onc/Wound/tower operator Routine Comment: BLE STASIS ULCERS/LYMPHEDEMA Operations: None Procedures: None Summary of Care Provided: The patient is a 66 year old Female with below past medical history significant for chronic lymphedema, super obesity, hospitalized for left lower extremity cellulitis, admitted to TCU with debility, here or rehabilitation, strengthening , prior to discharge home alone. [] Discharge home alone, with Home health services, continue [facility] services. Discharge Diet: No Restrictions Discharge Activity: Return to Normal Activity, May Shower, Use Walker Weight Bearing Status: Weight bearing as tolerated Call your doctor if you observe: Fever of 101 or Higher, Inability to urinate, Inability to have a bowel movement, Shortness of breath, Chest pain, Uncontrolled pain Home Medications: Medications to take at Discharge Atorvastatin Calcium [Lipitor] 20 mg PO QHS 09/18/14 Hydrocodone/Acetaminophen [Hydrocodon-Acetaminophen 5-325] 5 - 325 each PO Q8H PRN PRN 09/18/14 Levothyroxine Sodium [Levoxyl] 100 mcg PO DAILY 09/18/14 Lisinopril [Zestril] 20 mg PO DAILY 09/18/14 Metformin HCl [Glucophage] 500 mg PO BIDCM 09/18/14 Warfarin [Coumadin] 3 mg PO TUTH 09/18/14 Furosemide 60 mg PO DAILY 03/21/16 Gabapentin [Neurontin] 300 mg PO QHS 09/29/16 Ondansetron [Zofran Odt] 4 mg PO Q8H PRN PRN #10 tab 09/20/17 Magnesium Oxide [Mag-Ox 400] 400 mg PO BIDCM 09/24/17 Warfarin [Coumadin] 2 mg PO SUMOWEFRSA 09/24/17 Famotidine [Pepcid] 20 mg PO DAILY 09/27/17 Melatonin 3 - 6 mg PO QHS PRN tablet 09/27/17 Acetaminophen [Tylenol] 1,000 mg PO Q8H PRN PRN tablet 09/29/17 Nutritional Supplement [Quoc - ORANGE FLAVOR] 1 packet PO BIDCM #60 packet 03/10 levoFLOXacin tablet [Levaquin tablet] 750 mg PO Q48H #2 tab 09/29/17 Following Prescrptions Were Given to Patient: levoFLOXacin tablet [Levaquin tablet] 750 mg PO Q48H #2 tab Nutritional Supplement [Quoc - ORANGE FLAVOR] 1 packet PO BIDCM #60 packet Other Amb Orders: Prothrombin Time w/INR Time Frame: 1 Day, Location: Laboratory Primary Care Physician: Sebastián Smith MD [Primary Care Provider] - Please follow up with your Primary Care Physician in: 1 week. Please Follow Up With: Francia Aparicio When: on discharge Please Follow Up With: [facility] When: 1 week. Disposition: Home with Home Health Minutes spent on discharge:: 35 Patient Condition:: Fair Medical Necessity - Tobacco Use Smoking Status: Never smoker Tobacco Use: Non-smoker Meaningful Use Info Meaningful Use Diagnoses (Choose all that apply): None applicable
--- NOTE | 2017-09-29 21:10 | PCM.PN.HH ---
Home Health Note - Plan Overview of reason of hospitalization: The patient is a 66 year old Female with below past medical history significant for chronic lymphedema, super obesity, hospitalized for left lower extremity cellulitis, admitted to TCU with debility, here or rehabilitation, strengthening, prior to discharge home alone. [] Discharge home alone, with Home health services, continue [facility] services. Problems: Patient was seen for Super obesity (Chronic) Venous stasis ulcers of both lower extremities (Chronic) Hypertension (Chronic) Hyperlipidemia (Chronic) DVT (deep venous thrombosis) (Chronic) Pulmonary embolism (Chronic) Neuropathic pain (Chronic) Nausea (Chronic) Hypomagnesemia (Chronic) Complete List of Medical Problems Cellulitis (Acute) Cellulitis of leg, left (Acute) Super obesity (Chronic) Venous stasis ulcers of both lower extremities (Chronic) Hypertension (Chronic) Hyperlipidemia (Chronic) DVT (deep venous thrombosis) (Chronic) Pulmonary embolism (Chronic) Neuropathic pain (Chronic) Nausea (Chronic) Hypomagnesemia (Chronic) Morbid obesity (Chronic) Hypothyroidism (Chronic) GERD (gastroesophageal reflux disease) (Chronic) Diabetes mellitus (Chronic) Chronic Lymphedema (Chronic) Unspecified open wound, left thigh, initial encounter (Chronic) Venous stasis ulcer of left lower leg with edema of left lower leg (Chronic) Lymphedema of both lower extremities (Chronic) Venous stasis ulcer of right lower leg with edema of right lower leg (Chronic) Cellulitis of leg, right (Chronic) - Requirements and Reasons Disciplines Needed/Ordered: Nursing Home, Physical Therapy Reason for Disciplines: Disease Specific Monitoring/education, Medication Management/Knowledge Deficit, Wound Care, Gait Training, Stair Training, Fall Prevention, Home Safety/Equipment Instruction, Balance and/or Posture Training, Transfer Training Related To: Limited/Poor Endurance, Shortness of Breath with Activity, Physical Impairments, Unsteady Gait/Balance, Fall Risk Patient is unable to leave the home: Without Aid of Supportive Devices (crutches, cane, wheelchair, walker), Without the assistance of another person - Additional Disciplines Additional Disciplines Needed/Ordered: Occupational Therapy, Home Health Aide
[2017-09-30] MEDS: Furosemide 40 MG Tablet 60 MG PO (05:18)
[2017-09-30] MEDS: Glucerna Shake 120 ML LIQUID PO (05:18)
[2017-09-30] MEDS: levoFLOXacin 750 MG Tablet PO (05:18)
[2017-09-30] MEDS: Levothyroxine 100 MCG Tablet PO (05:19)
[2017-09-30] MEDS: Famotidine 20 MG Tablet PO (05:19)
[2017-09-30] MEDS: Lisinopril 20 MG Tablet PO (05:19)
[2017-09-30] MEDS: Senna/Docusate Sodium 1 Tablet 2 TABLET PO (05:20)
[2017-09-30 06:07] LABS: Hemoglobin 9.7 g/dl (12.0-15.0); Mean Corp Hgb Conc 31.3 g/gl (32-36); Mean Corpuscular Hgb 30.2 pg (27.0-32.0); Mean Corpuscular Volume 96.6 fL (81-99); Platelet Count 293 K/mm3 (150-450); RBC Distribution Width CV 13.9 % (11.6-14.6); RBC Distribution Width SD 49.4 fl (35.1-43.9); Red Blood Count 3.21 M/mm3 (4.2-5.4); White Blood Count 11.1 K/mm3 (4.4-11.0)
[2017-09-30 06:16] LABS: International Normalized Ratio 2.8
[2017-09-30 06:18] LABS: Scan Indicated on CBC? Y/N NO
[2017-09-30 06:24] LABS: Anion Gap 6 (5-15); BUN 23 mg/dL (7-18); BUN/Creat Ratio 25.2 RATIO (10-20); Calcium,Total 8.5 mg/dL (8.5-10.1); Chloride 101 mmol/L (98-107); Creatinine, Serum 0.91 mg/dL (0.55-1.02); EST Glomerular Filtration Rate 66 mL/min (>60); Est Glom Filt Rate - Afr Amer 80 mL/min (>60); Glucose 111 mg/dL (74-106); Potassium 3.6 mmol/L (3.5-5.1); Sodium Level 140 mmol/L (136-145)
[2017-09-30 07:01] LABS: Bedside Glucose 127 mg/dL (70-110)
[2017-09-30 08:50] VITALS: BP 114/74; PULSE 102; RESP 18; TEMP 36.6; O2SAT 92
[2017-09-30] MEDS: Magnesium Oxide 400 MG Tablet PO (08:51)
--- NOTE | 2017-09-30 09:16 | CASEMGMT ---
Social Work Telephone call from [facility], [place]. [facility] reporting to be unable to accept resident at this time. Spoke with resident, resident does not have a preference of another home health company, [facility] to have referral. Support given. [facility] making referral for physical and occupational therapy as well as long-term. Resident to have home health aide through [facility]. Order faxed as well as clinicals. [facility] reporting to have an opening and to call this social welfare clerk if there are any problems. Proposed discharge date: 09/30/17 PLAN: Discharge home alone with home health services and [facility] aides. Ronit ARVIZU, WILDLIFE MANAGEMENT PROFESSOR
--- NOTE | 2017-10-08 11:53 | MDS.RN ---
Information for the mds was obtained from review of the clinical record, interview of resident, staff, and direct observation of resident's care.
== END 2017-09-30 08:59 | disposition home health service (06) | DRG 948 ==
PROVIDERS: Admitting Provider Family Medicine Geriatric Medicine; Family Provider Internal Medicine; PCP Internal Medicine; Visit Provider Family Medicine Geriatric Medicine
DX: R53.81 Other malaise (principal); E11.622 Type 2 diabetes mellitus with other skin ulcer; E66.01 Morbid (severe) obesity due to excess calories; I83.018 Varicose veins of right lower extremity with ulcer other part of lower leg; L03.116 Cellulitis of left lower limb; L97.829 Non-pressure chronic ulcer of other part of left lower leg with unspecified severity; L97.819 Non-pressure chronic ulcer of other part of right lower leg with unspecified severity; Z68.44 Body mass index [BMI] 60.0-69.9, adult; I83.028 Varicose veins of left lower extremity with ulcer other part of lower leg; E78.5 Hyperlipidemia, unspecified; E03.9 Hypothyroidism, unspecified; I10 Essential (primary) hypertension; K21.9 Gastro-esophageal reflux disease without esophagitis; I89.0 Lymphedema, not elsewhere classified; Z71.3 Dietary counseling and surveillance; Z86.718 Personal history of other venous thrombosis and embolism; Z86.711 Personal history of pulmonary embolism; Z79.899 Other long term (current) drug therapy; Z79.01 Long term (current) use of anticoagulants; Z79.84 Long term (current) use of oral hypoglycemic drugs
CPT/HCPCS: 36415; 80048; 82962; 85027; 85610; 97110; 97116; 97161; 97166; 97530; 97535

== ENCOUNTER 2017-10-13 12:11 | Outpatient (RCR) | payer MEDICARE, MEDICAID, SELFPAY ==
--- NOTE | 2017-10-13 19:04 | HP.OTEVAL ---
Patient's Visit Information AZIZA JARVIS is a 66 year old F, referred to Occupational Therapy by Cirilo Locke MD, with a diagnosis of chronic lymphedema. Date of Evaluation: 10/13/17 Occupational Therapist: Ju Aparicio, KIRT/Vida, CHT - Subjective Subjective: This 66 year old female was seen for inital OT eval with dx of BLE lymphedema- pt states she has had swelling in LE since her late 30's early 40s. Pt states she has not had compression socks since 2000 and 2002- pt states she had custom compression socks in the past but insurance did pay for them. Now custom compression socks are not cover with her insurance. pt does have a compression pump for her LE lymphedema since 2016. pt states she does use her compression pump at least 2x a day for 60 min. Pt states she started going to the wound center since late 2016. Pt states she has a aide 5 days a week that attends for 2-3 hours a day. Pt states aides assist with bathing/dressing and washing her hair as needed. They do cleaning, cooking and laundry. Pt states she does do some of her own grocery shopping. pt has hospital bed at home and a lift chair. The pt has been a past pt of [facility], but could not return there as they no longer offer tx. pt is unable to pay out of pocket for her compression socks at this time. pt would like to know what she can do without costing to much money. - Pain BLE 0 - Objective Objective/Observation: PT arrives to session with power francoiseoomisha- Morbid obesity -3M wraps on BLE states she only walks 3-4 feet in her apt. Pt reports she has assist with bathing/dressing- other home mtg and self care tasks- pt has aide 5x week for 2-3hours to assist pt with her daily occupations. - Lymphedema (Circumferential Measure) Mid-foot: R/L 24cm/24cm Ankle: R/L 51cm/51cm Lower calf: R/L 62cm/68cm Largest calf: R/L 70cm/70cm - Lower Limb Functional Index Lower Extremity Functional Score: 7 - Goals Demonstrate a 20% reduction in edema by d/c: Yes Demonstrate adequate knowledge skin care/prec by 2nd week: Yes Demonstrate adequate knowledge therapeutic exercises by d/c: Yes Voice need to replace compression garment every 4-6mo by dc: Yes Goal:: pt will demo correct donning/doffing of Farrow wraps by end of 2nd visit - Rehabilitation General Assessment: Pt demo with bilateral LE lymphedema- pt demo with 3M wraps to bilateral LE from the wound center- pt demo with long hx of LE lymphedema- pt has been using her compression pump but continues to struggle with LE swelling- pt would benefit from custom compression socks 30-40mmHg (as her LE limb sizes do not fit in off the shelf compression socks) Per [facility] pts insurance will not pay for custom comprssion socks- Pt states she does not have the money to pay for the compression socks- therapist discussed in length alternatives to custom compression socks- (short stretch wrapping-Farrow wraps) pt contined to states she did not have the money for the recomendations- Due to pts limb size and increase need of assits with daily task- therapist did rec'd skilled nurisng placement where she could get more intensive wrapping/and mtg of LE lymphedema-pt does not wish to explore this option at this time- (states she would losse her apt and all her belongings) after long discussion of pts needs and funds pt would benefit from use of Farrow wraps 30-40mmHg (this is velcro closer device and pt can utilize this to assist in decreasing edema and mtg her LE swelling) if insurance does not cover the garments $420 she was advised to seek alternatives as [employer] to see if they would cover the cost. pt was agreeable to this. If they are unable to provide payment of the recomended compression devices pt would have to buy. Rehabilitation Potential: Questionable - Anticipated Interventions Anticipated Interventions: Education re Diagnosis, Education re Life-long lymphedema Management, Education re Skin Care and Precautions, Education re Correct Donning Tech,Care&Wearing Sched Comp Garments, Home Program - Visit Plan Frequency: Every Other Week Duration: 2 Months General Plan: IF pt can get compression alternitive (Farrow wraps 30-40mmHg) therapist will have pt return to ensure fit and proper use- rec'd health care facility administrator to attend with pt for instructions on use and to watch for skin precautions/break down- pt demo understanding- pt did states she will not be able to buy the Farrow wraps 30-40mmHg (pt given handout) if insurance will not cover them- advised pt to check with [employer] to see if they would assist her with the cost- pt agree as she has worked with them in the past- therapist will call in one-two weeks to see if pt has the rec'd compression garment. TEXT: Thank you for the opportunity to evaluate your patient. For Medicare and Medicare HMO plans, please review the plan of care and approve it. It will need to be FAXED BACK to us at [phone] for Medicare purposes. Please let me know if there are questions or concerns regarding this plan of care. Physician Signature: Date:
--- NOTE | 2018-02-05 08:25 | HP.OT.NRP ---
HP - Discharge Summary - Patient Information AZIZA JARVIS was seen in my office for initial evaluation on 10/13/17. The following Plan of Care was established for this patient: Initial Frequency: Every Other Week Initial Duration: 2 Months - Anticipated Interventions Anticipated Interventions: Education re Diagnosis, Education re Life-long lymphedema Management, Education re Skin Care and Precautions, Education re Correct Donning Tech,Care&Wearing Sched Comp Garments, Home Program This patient was last seen in our office 10/13/17. Pertinent comments regarding their Occupational therapy will appear below: Pt has not been seen since her initial eval- I did speak to her on 10-22-17 letting pt know insurance would not cover the compression garmets. she was going to see if [employer] would help her cover the cost. Pt has not returned and is d/c due to non attendance At this point I will be discontinuing this patient from occupational therapy. I would be happy to see this patient again in the future if found appropriate by the physician. Thank you! Ju Aparicio, OTR/L, CHT
== END 2017-10-13 19:00 | disposition home or self-care (01) ==
LOC: OT 12:11
PROVIDERS: Family Provider Internal Medicine; PCP Internal Medicine; Visit Provider Internal Medicine
DX: I89.0 Lymphedema, not elsewhere classified (principal); I83.891 Varicose veins of right lower extremity with other complications; E11.9 Type 2 diabetes mellitus without complications
CPT/HCPCS: 97166; G8978; G8979

== ENCOUNTER 2017-10-15 10:30 | Outpatient (RCR) | payer MEDICARE, MEDICAID, SELFPAY ==
[2017-09-21 00:35] VITALS: BP 142/82; PULSE 63; RESP 24; TEMP 36.4; BMI 67.5
[2017-10-08 10:31] VITALS: BP 146/100; PULSE 96; RESP 20; TEMP 36.2; BMI 67.5
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
[2017-10-15 11:18] VITALS: BP 122/71; PULSE 88; RESP 18; TEMP 35.5; BMI 63.3
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
== END 2017-10-20 23:59 ==
LOC: WC 10:30
PROVIDERS: Family Provider Internal Medicine; PCP Internal Medicine; Visit Provider Internal Medicine
DX: I83.018 Varicose veins of right lower extremity with ulcer other part of lower leg (principal); I83.028 Varicose veins of left lower extremity with ulcer other part of lower leg; E11.622 Type 2 diabetes mellitus with other skin ulcer; L97.812 Non-pressure chronic ulcer of other part of right lower leg with fat layer exposed; L97.822 Non-pressure chronic ulcer of other part of left lower leg with fat layer exposed; L97.212 Non-pressure chronic ulcer of right calf with fat layer exposed; E66.01 Morbid (severe) obesity due to excess calories; Z68.44 Body mass index [BMI] 60.0-69.9, adult; Z71.3 Dietary counseling and surveillance; I89.0 Lymphedema, not elsewhere classified; L03.116 Cellulitis of left lower limb; L03.115 Cellulitis of right lower limb; R60.0 Localized edema
CPT/HCPCS: 15271; 29581; Q4131

== ENCOUNTER 2017-11-19 12:00 | Outpatient (RCR) | payer MEDICARE, MEDICAID, SELFPAY ==
[2017-10-21 00:32] VITALS: BP 142/82; PULSE 88; RESP 18; TEMP 35.5; BMI 67.5
[2017-10-22 12:44] VITALS: BP 149/94; PULSE 85; RESP 18; TEMP 35.9; BMI 67.5
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
[2017-10-29 11:20] VITALS: BP 141/85; PULSE 88; RESP 20; TEMP 36.8; BMI 67.5
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
[2017-11-05 13:40] VITALS: BP 159/93; PULSE 84; RESP 18; TEMP 35.8; BMI 67.5
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
[2017-11-12 12:38] VITALS: BP 145/87; PULSE 73; RESP 18; TEMP 35.5; BMI 67.5
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
[2017-11-19 13:17] VITALS: BP 143/79; PULSE 71; RESP 20; TEMP 36.1; BMI 67.5
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
== END 2017-11-20 23:59 ==
LOC: WC 12:00
PROVIDERS: Family Provider Internal Medicine; PCP Internal Medicine; Visit Provider Internal Medicine
DX: I83.019 Varicose veins of right lower extremity with ulcer of unspecified site (principal); I83.029 Varicose veins of left lower extremity with ulcer of unspecified site; I89.0 Lymphedema, not elsewhere classified; I83.892 Varicose veins of left lower extremity with other complications; I83.028 Varicose veins of left lower extremity with ulcer other part of lower leg; R60.0 Localized edema; E66.01 Morbid (severe) obesity due to excess calories; E11.9 Type 2 diabetes mellitus without complications; L97.919 Non-pressure chronic ulcer of unspecified part of right lower leg with unspecified severity; L97.929 Non-pressure chronic ulcer of unspecified part of left lower leg with unspecified severity
CPT/HCPCS: 15271; 29581; Q4131

== ENCOUNTER 2017-11-26 15:06 | Inpatient (IN) | payer MEDICARE, MEDICAID, SELFPAY ==
--- NOTE | 2017-11-26 20:35 | DT_ITS ---
This patient was seen during an EMR downtime November 24, 2017 - December 01, 2017. This patient may have a combination of paper and electronic documentation or all paper documentation. All documentation is viewable within the e-chart portion of [employer] for each patient visit.
[2017-11-29 07:58] LABS: Absolute Lymphocyte Count 1.05 X10^3/ul (0.83-4.51); Absolute Neutrophil Count 5.4 X10^3/uL (2.0-7.7); Basophil# 0.01 X10^3/uL; Basophil% 0.1 % (0-1); Eosinophil# 0.15 X10^3/uL; Eosinophils% 2.1 % (0-5); Hematocrit 36.1 % (37-47); Hemoglobin 11.4 g/dl (12.0-15.0); Lymphocyte # 1.05 X10^3/ul (4.0); Lymphocyte % 14.7 % (19-41); Mean Corp Hgb Conc 31.6 g/gl (32-36); Mean Corpuscular Hgb 30.1 pg (27.0-32.0); Mean Corpuscular Volume 95.3 fL (81-99); Mean Platelet Vol. 10.3 fl (6.2-12.0); Monocyte# 0.52 X10^3/uL; Monocyte% 7.3 % (0-10); Neutrophil # 5.38 X10^3/uL (2.7-7.7); Neutrophil % 75.7 % (47-70); POSITIVE COUNT NO; POSITIVE DIFFERENTIAL NO; POSITIVE MORPHOLOGY NO; Platelet Count 246 K/mm3 (150-450); RBC Distribution Width CV 14.9 % (11.6-14.6); RBC Distribution Width SD 51.9 fl (35.1-43.9); Red Blood Count 3.79 M/mm3 (4.2-5.4); White Blood Count 7.1 K/mm3 (4.4-11.0)
[2017-11-29 07:59] LABS: International Normalized Ratio 2.4; Prothrombin Time (Protime)PT. 25.9 SECONDS (11.7-14.9)
[2017-11-29 08:11] LABS: Anion Gap 7 (5-15); BUN 17 mg/dL (7-18); BUN/Creat Ratio 16.5 RATIO (10-20); Calcium,Total 9.1 mg/dL (8.5-10.1); Chloride 105 mmol/L (98-107); Creatinine, Serum 1.03 mg/dL (0.55-1.02); EST Glomerular Filtration Rate 57 mL/min (>60); Est Glom Filt Rate - Afr Amer 69 mL/min (>60); Glucose 102 mg/dL (74-106); Potassium 4.1 mmol/L (3.5-5.1); Sodium Level 143 mmol/L (136-145)
[2017-11-29 10:47] LABS: International Normalized Ratio 2.4; Prothrombin Time (Protime)PT. 25.9 SECONDS (11.7-14.9)
[2017-11-29 12:50] LABS: Hemoglobin A1c 6.3 % (4.2-6.3)
[2017-11-29 12:51] LABS: Anion Gap 9 (5-15); BUN 14 mg/dL (7-18); BUN/Creat Ratio 14.7 RATIO (10-20); Calcium,Total 8.9 mg/dL (8.5-10.1); Chloride 106 mmol/L (98-107); Cholesterol 161 mg/dL (200); Creatinine, Serum 0.95 mg/dL (0.55-1.02); EST Glomerular Filtration Rate 63 mL/min (>60); Est Glom Filt Rate - Afr Amer 76 mL/min (>60); Glucose 119 mg/dL (74-106); Magnesium 1.8 mg/dL (1.6-2.6); Potassium 3.9 mmol/L (3.5-5.1); Sodium Level 143 mmol/L (136-145); Triglycerides 99 mg/dL; Very Low Density Lipoprotein 20 mg/dL (5-40)
[2017-11-29 12:52] LABS: High Density Lipoprotein 41 mg/dL; T4 Free Direct 1.42 ng/dL (0.76-1.46); Thyroid Stim Hormone (TSH) 2.94 uIU/mL (0.358-3.74)
[2017-11-30 10:43] LABS: International Normalized Ratio 2.3; Prothrombin Time (Protime)PT. 25.5 SECONDS (11.7-14.9)
[2017-11-30 13:25] LABS: Erythrocyte Sedimentation Rate 79 mm/hr (0-30)
[2017-12-01 12:01] LABS: International Normalized Ratio 2.2; Prothrombin Time (Protime)PT. 24.7 SECONDS (11.7-14.9)
[2017-12-01 12:02] LABS: Hematocrit 33.4 % (37-47); Hemoglobin 10.6 g/dl (12.0-15.0); Mean Corpuscular Volume 95.4 fL (81-99); White Blood Count 6.5 K/mm3 (4.4-11.0)
[2017-12-01 12:03] LABS: Absolute Neutrophil Count 4.4 X10^3/uL (2.0-7.7); Basophil# 0.01 X10^3/uL; Basophil% 0.2 % (0-1); Eosinophil# 0.17 X10^3/uL; Eosinophils% 2.6 % (0-5); Lymphocyte % 19.9 % (19-41); Mean Corp Hgb Conc 31.7 g/gl (32-36); Mean Corpuscular Hgb 30.3 pg (27.0-32.0); Monocyte# 0.61 X10^3/uL; Monocyte% 9.4 % (0-10); Neutrophil # 4.43 X10^3/uL (2.7-7.7); Neutrophil % 67.9 % (47-70); POSITIVE COUNT NO; POSITIVE DIFFERENTIAL NO; POSITIVE MORPHOLOGY NO; Platelet Count 226 K/mm3 (150-450); RBC Distribution Width CV 15.2 % (11.6-14.6); RBC Distribution Width SD 52.1 fl (35.1-43.9)
[2017-12-02 09:38] LABS: Bedside Glucose 110 mg/dL (70-110)
[2017-12-02 09:39] LABS: Bedside Glucose 124 mg/dL (70-110)
[2017-12-02 09:41] LABS: Bedside Glucose 139 mg/dL (70-110)
[2017-12-02 09:42] LABS: Bedside Glucose 141 mg/dL (70-110)
[2017-12-02 15:10] LABS: Bedside Glucose 108 mg/dL (70-110)
[2017-12-02 15:18] LABS: Bedside Glucose 127 mg/dL (70-110)
== END 2017-11-28 16:13 | disposition home health service (06) | DRG 300 ==
LOC: ED 11-27 08:05 → MS3 11-27 11:53
PROVIDERS: Internal Medicine; Admitting Provider Internal Medicine; Emergency Provider Emergency Medicine; Family Provider Internal Medicine; PCP Internal Medicine; Visit Provider Internal Medicine
DX: I83.218 Varicose veins of right lower extremity with both ulcer of other part of lower extremity and inflammation (principal); L97.819 Non-pressure chronic ulcer of other part of right lower leg with unspecified severity; Z68.44 Body mass index [BMI] 60.0-69.9, adult; L97.829 Non-pressure chronic ulcer of other part of left lower leg with unspecified severity; I83.228 Varicose veins of left lower extremity with both ulcer of other part of lower extremity and inflammation; E11.40 Type 2 diabetes mellitus with diabetic neuropathy, unspecified; E11.622 Type 2 diabetes mellitus with other skin ulcer; I10 Essential (primary) hypertension; E66.01 Morbid (severe) obesity due to excess calories; E03.9 Hypothyroidism, unspecified; I89.0 Lymphedema, not elsewhere classified; E78.5 Hyperlipidemia, unspecified; Z86.711 Personal history of pulmonary embolism; Z79.01 Long term (current) use of anticoagulants; Z91.19 Patient's noncompliance with other medical treatment and regimen
CPT/HCPCS: 36415; 80048; 80061; 82962; 83036; 83735; 84439; 84443; 85025; 85610; 85652; 86140; 87040; 96361; 96365; 97162; 97166; 97530; 97802; 99284; J7030; A4216; G8978; G8979; G8987; G8988; J1940

== ENCOUNTER 2017-12-10 11:30 | Outpatient (RCR) | payer MEDICARE, MEDICAID, SELFPAY ==
[2017-11-21 00:32] VITALS: BP 143/79; PULSE 71; RESP 20; TEMP 36.1; BMI 67.5
[2017-12-03 13:08] VITALS: BP 116/64; PULSE 91; RESP 18; TEMP 36.3; BMI 67.5
--- NOTE | 2017-12-03 13:50 | WC ---
OF TODAY 12/03/2017, AND Keith JARVIS, PATIENT, ENTERED INTO AN OFFICIAL AGREEMENT REGARDING TREATMENT. DR. MARIE FULLY EXPLAINED TO MS. JARVIS THE [id number] OF HER FULL PARTICIPATION WITH HER TREATMENT PLAN. WILL EVALUATE ON AN ONGOING WEEKLY BASIS DURING PATIENTS SCHEDULED VISITS
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
[2017-12-10 12:58] VITALS: BP 137/69; PULSE 81; RESP 18; TEMP 36.4; BMI 67.5
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
== END 2017-12-20 23:59 ==
LOC: WC 11:30
PROVIDERS: Family Provider Internal Medicine; PCP Internal Medicine; Visit Provider Internal Medicine
DX: I83.012 Varicose veins of right lower extremity with ulcer of calf (principal); I83.022 Varicose veins of left lower extremity with ulcer of calf; L97.212 Non-pressure chronic ulcer of right calf with fat layer exposed; L97.222 Non-pressure chronic ulcer of left calf with fat layer exposed; R60.0 Localized edema; I83.018 Varicose veins of right lower extremity with ulcer other part of lower leg; L97.812 Non-pressure chronic ulcer of other part of right lower leg with fat layer exposed; Z91.19 Patient's noncompliance with other medical treatment and regimen
CPT/HCPCS: 11042; 99213; G0463

== ENCOUNTER 2018-01-01 12:30 | Outpatient (RCR) | payer MEDICARE, MEDICAID, SELFPAY ==
[2017-12-21 00:32] VITALS: BP 137/69; PULSE 81; RESP 18; TEMP 36.4; BMI 67.5
[2017-12-25 12:12] VITALS: BP 138/77; PULSE 82; RESP 18; TEMP 36.6; BMI 67.5
--- NOTE | 2017-12-25 12:13 | WC ---
pt removed 3M wraps yesterday at noon due to stool and then pt showered pt aid helped remove wraps
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
[2018-01-01 12:38] VITALS: BP 150/85; PULSE 85; RESP 18; TEMP 36.8; BMI 67.5
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
== END 2018-01-20 23:59 | disposition home or self-care (01) ==
LOC: WC 12:30
PROVIDERS: Family Provider Internal Medicine; PCP Internal Medicine; Visit Provider Internal Medicine
DX: I83.022 Varicose veins of left lower extremity with ulcer of calf (principal); E11.622 Type 2 diabetes mellitus with other skin ulcer; L97.222 Non-pressure chronic ulcer of left calf with fat layer exposed; I83.018 Varicose veins of right lower extremity with ulcer other part of lower leg; L97.812 Non-pressure chronic ulcer of other part of right lower leg with fat layer exposed; L97.811 Non-pressure chronic ulcer of other part of right lower leg limited to breakdown of skin; L97.821 Non-pressure chronic ulcer of other part of left lower leg limited to breakdown of skin; I89.0 Lymphedema, not elsewhere classified; E66.01 Morbid (severe) obesity due to excess calories; Z68.44 Body mass index [BMI] 60.0-69.9, adult; Z71.3 Dietary counseling and surveillance; Z91.19 Patient's noncompliance with other medical treatment and regimen; R60.0 Localized edema
CPT/HCPCS: 11042; 29581

== ENCOUNTER 2018-01-23 11:07 | Emergency (ER) | payer MEDICARE, MEDICAID, SELFPAY ==
[2018-01-23 11:09] VITALS: BP 149/84; PULSE 104; PULSE 107; RESP 14; TEMP 36.8; O2SAT 97; O2SAT 98; BMI 66.4
--- NOTE | 2018-01-23 11:43 | ED.VISSUMM ---
- ER Visit Summary Date of Service: 01/23/18 Chief Complaint: [] Left lower extremity skin ulceration, history of diabetes lymphedema and chronic lower extremity infections ulcers History of Present Illness: The patient is a 67 F [] significant lymphedema involving both lower extremities chronic leg ulcers all of the above have been stable she indicates she has a nurse, and change her dressing once a week the nurse came out today and change her dressing and there was a quarter sized circular skin abrasion type lesion in 1 of the folds within the lymphedema tissue of her left leg, the patient was then sent to the emergency department. The patient has not been ill in any way no fever no cough she has been execute all of her daily activities she did not realize she had this lesion until the nurse found it when they did the dressing change the dressings have been dry with no signs of infection or redness or warmth or any change in her chronic lymphedema Patient is a patient of the [facility] wound care center but she is also been referred to the [facility] lymphedema clinic because of the significant nature and complications related to lymphedema she has not been sick in any other way Physical Examination: [] A large woman in no distress head neck chest unremarkable abdomen is very obese the lower extremities show marked 10+ lymphedema that is chronic around the entire legs bilaterally there is no signs of any ulcerations or active infection over the left lower leg within one the skin folds within her lymphedema tissue there is a circular lesion that measures up 1-2 cm that appears really to represent a skin fold possibly from the friction with the folds rubbing up against each other later to the fold there is no warmth no redness no drainage no odor her lower extremity exam shows no signs of vascular insufficiency or compromise Long conversation with the patient she simply indicates she did not know how to approach this wound and she follows instructions and came to the emergency department by the nurse recommendations, we spoke with the local wound care nurse who is familiar with the patient he recommended using either Aquacel, silver cell, there is a medication called med I honey, they can also be used any of these medications available to the emergency department should follow-up with the clinic further the wound care nurse noted that the patient has had multiple missed appointments with [facility] wound care [facility] not following up but she is welcome to be seen there should she want to keep her appointments and also she should follow-up with the lymphedema clinic at [facility] I explained All the above to her she agrees with that plan we will apply that dressing as above Test Results: [] Emergency Department Course and Treatment: [] Treatment Plan: [] Disposition: [] Home stable Impression: [] Left lower extremity skin tear, severe lymphedema, diabetes, history of chronic infection skin lesions to lower legs This note was generated with [employer] dictation software. It may contain incorrect words, spelling, and punctuation that were not noted in review of the chart prior to signing ED Disposition - Plan for ED Patient: Chief Complaint: Lower Extremity Injury Referrals: Sebastián Smith MD [Primary Care Provider] -
--- NOTE | 2018-01-23 11:47 | ED.DCSUM_ITS ---
- ER Visit Summary Date of Service: 01/23/18 Chief Complaint: [] Left lower extremity skin ulceration, history of diabetes lymphedema and chronic lower extremity infections ulcers History of Present Illness: The patient is a 67 F [] significant lymphedema involving both lower extremities chronic leg ulcers all of the above have been stable she indicates she has a nurse, and change her dressing once a week the nurse came out today and change her dressing and there was a quarter sized circular skin abrasion type lesion in 1 of the folds within the lymphedema tissue of her left leg, the patient was then sent to the emergency department. The patient has not been ill in any way no fever no cough she has been execute all of her daily activities she did not realize she had this lesion until the nurse found it when they did the dressing change the dressings have been dry with no signs of infection or redness or warmth or any change in her chronic lymphedema Patient is a patient of the [facility] wound care center but she is also been referred to the [facility] lymphedema clinic because of the significant nature and complications related to lymphedema she has not been sick in any other way Physical Examination: [] A large woman in no distress head neck chest unremarkable abdomen is very obese the lower extremities show marked 10+ lymphedema that is chronic around the entire legs bilaterally there is no signs of any ulcerations or active infection over the left lower leg within one the skin folds within her lymphedema tissue there is a circular lesion that measures up 1-2 cm that appears really to represent a skin fold possibly from the friction with the folds rubbing up against each other later to the fold there is no warmth no redness no drainage no odor her lower extremity exam shows no signs of vascular insufficiency or compromise Long conversation with the patient she simply indicates she did not know how to approach this wound and she follows instructions and came to the emergency department by the nurse recommendations, we spoke with the local wound care nurse who is familiar with the patient he recommended using either Aquacel, silver cell, there is a medication called med I honey, they can also be used any of these medications available to the emergency department should follow-up with the clinic further the wound care nurse noted that the patient has had multiple missed appointments with [facility] wound care [facility] not following up but she is welcome to be seen there should she want to keep her appointments and also she should follow-up with the lymphedema clinic at [facility] I explained All the above to her she agrees with that plan we will apply that dressing as above Test Results: [] Emergency Department Course and Treatment: [] Treatment Plan: [] Disposition: [] Home stable Impression: [] Left lower extremity skin tear, severe lymphedema, diabetes, history of chronic infection skin lesions to lower legs This note was generated with [employer] dictation software. It may contain incorrect words, spelling, and punctuation that were not noted in review of the chart prior to signing ED Disposition - Plan for ED Patient: Chief Complaint: Lower Extremity Injury Referrals: Sebastián Smith MD [Primary Care Provider] -
--- NOTE | 2018-01-23 11:47 | ED.DEP ---
ED Disposition - Plan for ED Patient: Chief Complaint: Lower Extremity Injury Diagnosis: Venous stasis ulcer of left lower leg with edema of left lower leg Instructions: ED Ulcer Venous Leg Referrals: Sebastián Smith MD [Primary Care Provider] - Additional Instructions: You should also follow-up with the wound care center you seen before, and make sure you follow-up with the [facility] lymphedema clinic as instructed
[2018-01-23 11:51] VITALS: BP 174/86; PULSE 95; RESP 15; O2SAT 98
== END 2018-01-23 12:40 | disposition home or self-care (01) ==
LOC: ED 12:36
PROVIDERS: Emergency Provider Emergency Medicine; Family Provider Internal Medicine; PCP Internal Medicine
DX: S81.812A Laceration without foreign body, left lower leg, initial encounter (principal); X58.XXXA Exposure to other specified factors, initial encounter; Y93.9 Activity, unspecified; Y92.9 Unspecified place or not applicable; Y99.9 Unspecified external cause status; I89.0 Lymphedema, not elsewhere classified; E11.9 Type 2 diabetes mellitus without complications; Z79.01 Long term (current) use of anticoagulants; Z79.84 Long term (current) use of oral hypoglycemic drugs; Z79.899 Other long term (current) drug therapy
CPT/HCPCS: 99284

== ENCOUNTER 2018-01-30 13:21 | Inpatient (IN) | payer MEDICARE, MEDICAID, SELFPAY ==
[2018-01-30 13:22] VITALS: BP 169/75; PULSE 102; RESP 28; TEMP 36.4; O2SAT 99; BMI 74.9
--- NOTE | 2018-01-30 14:43 | RAD_ITS ---
STUDY: X-RAY - LEFT FOOT CLINICAL: Female, 67 years old. Multiple wounds. . Unable to bear weight on left foot. TECHNIQUE: 3 view(s) of the foot. COMPARISON: None available. FINDINGS: No finding of acute displaced fracture, dislocation, radiopaque foreign body, periosteal reaction, bony erosion, osseous lytic/blastic lesion or subcutaneous emphysema identified. Visualized bony joint spaces appear intact. Marked amount of left foot soft tissues are seen especially anterior superior to the ankle and mid/hindfoot suggesting large body habitus versus edema. No focal significant abnormal soft tissue calcification identified. With lateral view, large posterior calcaneal spur is noted at the Achilles tendon insertion. Mild plantar calcaneal spur seen. RAD/Foot 2 Views IMPRESSION: Nonacute appearing left foot study with large amount of soft tissue suggesting large body habitus versus soft tissue edema. Clinical correlation recommended. Large posterior and mild plantar calcaneal spurs. Electronically Signed: Wei Foss, at 16:34 EDT Tel , Service support ,
[2018-01-30 14:48] LABS: Absolute Lymphocyte Count 0.85 X10^3/ul (0.83-4.51); Absolute Neutrophil Count 6.2 X10^3/uL (2.0-7.7); Basophil# 0.02 X10^3/uL; Basophil% 0.3 % (0-1); Eosinophil# 0.09 X10^3/uL; Eosinophils% 1.2 % (0-5); Hematocrit 34.7 % (37-47); Hemoglobin 10.7 g/dl (12.0-15.0); Lymphocyte # 0.85 X10^3/ul (4.0); Mean Corp Hgb Conc 30.8 g/gl (32-36); Mean Corpuscular Hgb 30.1 pg (27.0-32.0); Mean Corpuscular Volume 97.5 fL (81-99); Mean Platelet Vol. 10.5 fl (6.2-12.0); Monocyte# 0.57 X10^3/uL; Monocyte% 7.4 % (0-10); Neutrophil # 6.19 X10^3/uL (2.7-7.7); POSITIVE COUNT NO; POSITIVE DIFFERENTIAL NO; POSITIVE MORPHOLOGY NO; Platelet Count 246 K/mm3 (150-450); RBC Distribution Width CV 14.2 % (11.6-14.6); RBC Distribution Width SD 50.9 fl (35.1-43.9); Red Blood Count 3.56 M/mm3 (4.2-5.4); White Blood Count 7.7 K/mm3 (4.4-11.0)
[2018-01-30 15:06] LABS: International Normalized Ratio 1.6; Prothrombin Time (Protime)PT. 18.9 SECONDS (11.7-14.9)
[2018-01-30 15:12] LABS: Anion Gap 4 (5-15); BUN 14 mg/dL (7-18); BUN/Creat Ratio 13.2 RATIO (10-20); Calcium,Total 8.7 mg/dL (8.5-10.1); Chloride 106 mmol/L (98-107); Creatinine, Serum 1.06 mg/dL (0.55-1.02); EST Glomerular Filtration Rate 55 mL/min (>60); Est Glom Filt Rate - Afr Amer 67 mL/min (>60); Estimated Creatinine Clearance 41.85 ml/min; Glucose 134 mg/dL (74-106); Potassium 4.1 mmol/L (3.5-5.1); Sodium Level 141 mmol/L (136-145)
--- NOTE | 2018-01-30 15:21 | ED.RN ---
MULTIPLE ATTEMPTS MADE BY THREE RN'S FOR SECOND SET OF BLOOD CULTURES. LAB CALLED TWICE TO COME DRAW PT. ATB ORDERED, AWARE.
[2018-01-30 15:26] VITALS: BP 145/80; PULSE 82; RESP 20; O2SAT 98
[2018-01-30 15:29] VITALS: BP 145/80; PULSE 82; RESP 20; O2SAT 98
--- NOTE | 2018-01-30 15:35 | ED.DCSUM_ITS ---
- ER Visit Summary Date of Service: 01/30/18 Chief Complaint: Leg wounds History of Present Illness: The patient is a 67 F [] Physical Examination: Who presents from home for leg wounds. Her home nurse sent her here for worsening wounds. The patient has a history of lymphedema and cellulitis. She also has history of DVT and takes Coumadin. She denies fever or systemic symptoms. She has had wounds like this before, but never this bad. She has required hospitalization and IV antibiotics in the past. Patient also complains of severe left foot pain but denies direct trauma. She has had difficulty bearing weight on the left foot. Test Results: Blood pressure 169/75 and heart rate 102. Otherwise vitals unremarkable. Afebrile. No acute distress. Sitting comfortably. Heart regular. Lungs clear. Abdomen soft. Lower extremities show extensive lymphedema. She has multiple superficial ulcerations and erythema, worse on the left side. She is neurovascularly intact distally. Emergency Department Course and Treatment: Hemoglobin 10.7, INR 1.6. Glucose 134 and creatinine 1.06. Cultures pending. X-rays pending, but appear unremarkable. Treatment Plan: Patient was treated with vancomycin. She has worsening leg wounds with ulceration and cellulitis. She has trouble ambulating and caring for herself. She will need antibiotics. She will need monitoring of her INR. She will need wound care. Patient was discussed with the hospitalist and will be admitted. Disposition: Admission Impression: 1. Left lower extremity cellulitis 2. Lymphedema bilateral legs This note was generated with [employer] dictation software. It may contain incorrect words, spelling, and punctuation that were not noted in review of the chart prior to signing ED Disposition - Plan for ED Patient: Chief Complaint: Wound Referrals: Sebastián Smith MD [Primary Care Provider] -
[2018-01-30 15:59] VITALS: BMI 74.9
--- NOTE | 2018-01-30 16:24 | PCM.HP.STD ---
<Wil Sarabia - Last Filed: 01/30/18 16:41> Problem List (1) Leg wound, left Status: Acute Qualifiers: Encounter type: initial encounter Qualified Code(s): S81.802A - Unspecified open wound, left lower leg, initial encounter History of Present Illness The patient is a 67 year old F had a large blister on her medial side of her left ankle on roof. Patient's wound care team was concerned. Patient sent wound care team consist primarily of home nursing and the patient was sent to the emergency room. Patient had redness of her lower extremities attributable to her lymphedema and venous stasis changes and is concerning for cellulitis the patient was started on vancomycin. Patient has had extensive history of and has been poorly compliant with proper management and has been referred to a lymphedema clinic to further assist her. Patient states that at home she is normally aides that come out to her house every Friday with Friday to assess her with her wound care. [] Past Medical History Past Medical History (Chronic Problems): Chronic Problems Super obesity (Chronic) Venous stasis ulcers of both lower extremities (Chronic) Hypertension (Chronic) Hyperlipidemia (Chronic) DVT (deep venous thrombosis) (Chronic) Pulmonary embolism (Chronic) Neuropathic pain (Chronic) Nausea (Chronic) Hypomagnesemia (Chronic) Morbid obesity (Chronic) Hypothyroidism (Chronic) GERD (gastroesophageal reflux disease) (Chronic) Diabetes mellitus (Chronic) Chronic Lymphedema (Chronic) Unspecified open wound, left thigh, initial encounter (Chronic) Venous stasis ulcer of left lower leg with edema of left lower leg (Chronic) Lymphedema of both lower extremities (Chronic) Venous stasis ulcer of right lower leg with edema of right lower leg (Chronic) Cellulitis of leg, right (Chronic) Allergies No Known Allergies Allergy (Verified 01/23/18 11:38) Home Medications: Ambulatory Orders Medication Instructions Recorded Levothyroxine Sodium [Levoxyl] 100 mcg PO DAILY 09/18/14 Lisinopril [Zestril] 20 mg PO DAILY 09/18/14 Metformin HCl [Glucophage] 500 mg PO BIDCM 09/18/14 Warfarin [Coumadin] 1 mg PO TUTH 09/18/14 Furosemide 60 mg PO DAILY 03/21/16 Gabapentin [Neurontin] 300 mg PO QHS 09/29/16 Ondansetron [Zofran Odt] 4 mg PO Q8H PRN PRN #10 tab 09/20/17 Warfarin [Coumadin] 2 mg PO SUMOWEFRSA 09/24/17 Famotidine [Pepcid] 20 mg PO DAILY 09/27/17 Atorvastatin Calcium 20 mg PO QHS 01/30/18 Diphenoxylate/Atrop [Lomotil] 1 tab PO PRN PRN 01/30/18 Hydrocodone/Acetaminophen 1 tab PO Q8H PRN PRN 01/30/18 [Hydrocodone-Acetamin 5-325 mg] Nystatin Powder [Mycostatin Powder] 1 applicatio TP PRN PRN 01/30/18 Nystatin [Nystatin] 1 applic TP PRN PRN 01/30/18 Surgical History: appendectomy, hysterectomy, tonsillectomy Psychiatric History: No pertinent psych hx 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 Denies: Blurred vision, Double vision HEENT: Denies: Head Aches, Sinus Congestion, Sinus Drainage Cardiovascular: Denies: Chest Pain, Palpitations Respiratory: Denies: Cough, Shortness of breath at rest, Sputum production Gastrointestinal: Denies: Abdominal Pain, Nausea, Vomiting Genitourinary: Denies: Dysuria Musculoskeletal: Denies: Joint Pain, Joint Tenderness Skin: Reports: -. Denies: Rash, Wounds Neurological: Denies: Focal weakness, Numbness, Tingling Psychiatric: Denies: Anxiety, Depression, Homicidal Ideations, Suicidal Ideations Hematologic/ Lymphatic: Reports: Hx of blood clot. Denies: Easy Bruising, Easy Bleeding Comment: All review of systems are negative except as mentioned in the history of present illness and the other review of systems. VTE Information - Inpt Only VTE Present on Admission: No VTE Mechan Device Prophylaxis: None VTE Pharm Prophylaxis ordered?: Yes Patient Problems: Active and Suspected Problems Lymphedema (Acute) Leg wound, left (Acute) - Physical Exam General: Alert, Cooperative, - - Morbidly obese. Disheveled appearance. HEENT: Atraumatic, Normocephalic Oral: Moist Mucosa, No Gingival or Mucosal Lesions/ Ulcerations Lungs: Clear to auscultation, Normal air movement, No rhonchi, No wheeze Cardiovascular: Regular rate, Regular Rhythm, Normal S1, Normal S2 Abdomen: Bowel Sounds Present, Soft, Non Tender, Non-Distended, Obese Extremities: - Skin: - - Venous stasis dermatitis of lower extremities. And unroofed bullae on her medial left and with red tissue. No fluctuance, no purulence noted. Neurological: Muscle tone normal, Sensory exam intact to light touch and pain Psych/Mental Status: Appropriate, Flat Affect Vital Signs Temp Pulse Resp BP Pulse Ox 36.4 C L 82 20 H 145/80 H 98 01/30/18 13:22 01/30/18 15:29 01/30/18 15:29 01/30/18 15:29 01/30/18 15:29 Oxygen Delivery Method Room Air Weight: 185.8 kg Body Mass Index (BMI) 74.9 Laboratory Tests Past 24 Hrs 01/30/18 01/30/18 01/30/18 14:30 14:30 14:30 WBC 7.7 RBC 3.56 L Hgb 10.7 L Hct 34.7 L MCV 97.5 MCH 30.1 MCHC 30.8 L RDW 14.2 RDW Differential 50.9 H Plt Count 246 MPV 10.5 Immature Gran % (Auto) 0.100 Neut % (Auto) 80.0 H Lymph % (Auto) 11.0 L [facility] % (Auto) 7.4 Eos % (Auto) 1.2 Baso % (Auto) 0.3 Absolute Neuts (auto) 6.2 Absolute Lymphs (auto) 0.85 Total Counted Not Reportable PT 18.9 H INR 1.6 Sodium 141 Potassium 4.1 Chloride 106 Carbon Dioxide 31.0 Anion Gap 4 L BUN 14 Creatinine 1.06 H Estim Creat Clear Calc 41.85 Est GFR (MDRD) Af Amer 67 Est GFR (MDRD) Non-Af 55 L BUN/Creatinine Ratio 13.2 Glucose 134 H Calcium 8.7 Assessment/Plan All Active Problems Cellulitis (Acute) Cellulitis of leg, left (Acute) Lymphedema (Acute) Leg wound, left (Acute) Sepsis (Resolved) Patient seen and examined independently. Data reviewed. I agree with the above note by the physician special events assistant. 1. Left lower extremity wound This is secondary to the patient's chronic lymphedema in which a bullae finally unroofed I do not appreciate any any cellulitis at this time. That was noted to the patient on several occasions that when she has these wounds are good pose a risk for her developing a infection Routine wound care and have the wound care team see her. . The patient has been fired by the wound care service due to noncompliance. Patient follow up with the lymphedema clinic Patient did receive vancomycin in the emergency room continuing that as I do not feel that there is any actual infection at this time but if infection does develop then will reevaluate at that time. 2. Lymphedema Complicating care Patient's weight is up from previous. Her weight is measuring 185.8 kg and appears at her baseline is around 172-173 kg We will increase the patient's Lasix from 60 once daily to 60 twice daily Will check an echocardiogram to evaluate if patient does have pulmonary hypertension. I am concerned the patient probably has underlying sleep apnea that require outpatient polysomnogram. 3. Venous thromboembolic disease Patient is on Coumadin but her INR is subtherapeutic Will continue with Coumadin and add weight-based Lovenox until her INR is therapeutic 4. Diabetes mellitus type 2 Continue with metformin but also add sliding scale for the time being 5. Candidiasis Patient will be on nystatin 6. Debility, suspected Patient states that she is normally ambulatory able to perform ADLs I am surprised by the claim but will have physical and occupational therapy evaluate her Code Visit Inpatient E&M: 42021 Init Hosp L3 <Gus Lundy - Last Filed: 01/30/18 16:58> Problem List (1) Lymphedema Status: Acute (2) DVT (deep venous thrombosis) Status: Chronic (3) Diabetes mellitus Status: Chronic (4) GERD (gastroesophageal reflux disease) Status: Chronic (5) Hyperlipidemia Status: Chronic (6) Hypertension Status: Chronic (7) Hypothyroidism Status: Chronic (8) Super obesity Status: Chronic History of Present Illness Date of Admission: 01/30/18 Chief Complaint: swelling BLE The patient is a 67 year old F with a hx of severe lympedema, cellulitis of the legs, DMt2, HTN, HLD, DVT/PE on coumadin, who presents to the ER with increased swelling of the BLE. She was dismissed from the wound care center in December as she was noncompliant with her home wound care and lymphedema pumps and advised to follow up with the lymphedema clinic in [place]. She notes that since discharge her legs have progressively worsened. They have become more swollen and large blisters have formed. These blisters today opened up when she was putting her shorts on. She states that liquid came out but she could not see it. She has no fevers or chills. She does have a hx of cellulitis with multiple bacteria including pseducomonas, strep viridans, and MSSA. She has been treated by Dr. Florez in the past. Currently she does not have fever or leukocytosis. She does not feel unwell other than her legs being more swollen. No recent illness. No recent antibiotic use. No pets. 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: No pertinent HOUSE CLEANER history Smoking Status: Never smoker - *Family History Maternal History Items: Diabetes Paternal History Items: Diabetes, Heart Disease Review of Systems Constitutional: Denies: Chills, Fever, Weight Change HEENT: Denies: Head Aches, Sinus Congestion, Sinus Drainage Cardiovascular: Denies: Chest Pain, Palpitations Respiratory: Denies: Cough, Shortness of breath at rest, Sputum production Gastrointestinal: Denies: Abdominal Pain, Nausea, Vomiting Genitourinary: Denies: Dysuria Musculoskeletal: Denies: Joint Pain, Joint Tenderness Skin: Reports: - - severe lymphedema with some erythema, open blisters BLE. Denies: Rash, Wounds Neurological: Denies: Numbness, Tingling, Focal weakness Psychiatric: Denies: Anxiety, Depression, Homicidal Ideations, Suicidal Ideations Hematologic/ Lymphatic: Denies: Easy Bruising, Easy Bleeding VTE Information - Inpt Only VTE Present on Admission: No VTE Mechan Device Prophylaxis: None VTE Pharm Prophylaxis ordered?: Yes - Physical Exam General: Alert, Oriented x3, Cooperative HEENT: Atraumatic, PERRLA, EOMI, Normocephalic Neck: Supple, No JVD, Negative Carotid Bruits Lungs: Clear to auscultation, Normal air movement Cardiovascular: Regular rate, No murmurs Abdomen: Bowel Sounds Present, Soft, Non Tender Extremities: Capillary Refill Less than 3 Seconds, - - severe lymphedema, open blisters, erythema, no purulence. no excessive warmth. Skin: No rashes, No breakdown Musculoskeletal: No Tenderness to Palpation of Joints or Extremities Neurological: Cranial nerves II-XII grossly intact Psych/Mental Status: Normal Affect, Appropriate, Alert and oriented to time, place, person, mood and affect Vital Signs Temp Pulse Resp BP Pulse Ox 97.5 F L 82 20 H 145/80 H 98 01/30/18 13:22 01/30/18 15:29 01/30/18 15:29 01/30/18 15:29 01/30/18 15:29 Oxygen Delivery Method Room Air Weight: 409 lb 9.902 oz Body Mass Index (BMI) 74.9 Laboratory Tests Past 24 Hrs 01/30/18 01/30/18 01/30/18 14:30 14:30 14:30 WBC 7.7 RBC 3.56 L Hgb 10.7 L Hct 34.7 L MCV 97.5 MCH 30.1 MCHC 30.8 L RDW 14.2 RDW Differential 50.9 H Plt Count 246 MPV 10.5 Immature Gran % (Auto) 0.100 Neut % (Auto) 80.0 H Lymph % (Auto) 11.0 L [facility] % (Auto) 7.4 Eos % (Auto) 1.2 Baso % (Auto) 0.3 Absolute Neuts (auto) 6.2 Absolute Lymphs (auto) 0.85 Total Counted Not Reportable PT 18.9 H INR 1.6 Sodium 141 Potassium 4.1 Chloride 106 Carbon Dioxide 31.0 Anion Gap 4 L BUN 14 Creatinine 1.06 H Estim Creat Clear Calc 41.85 Est GFR (MDRD) Af Amer 67 Est GFR (MDRD) Non-Af 55 L BUN/Creatinine Ratio 13.2 Glucose 134 H Calcium 8.7 Assessment/Plan 1. Progressively worsening lymphedema - doubt cellulitis at this time. Did receive vanco in ER x1. Defer further abx. Consult wound care. Pt dismissed from wound care center in [place] for noncompliance and not using proper lymphedema pumps at home. This appears consistent with untreated lymphedema. No fever or white count, patient appears nontoxic. Also appears to have intertrigo - nystatin. Continue lasix. 2. DMt2 and morbid obesity - dietary consult. continue home meds + sliding scale. 3. Hx DVT / PE - INR subtherapeutic, repeat in AM. Continue warfarin. 4. HLD - statin 5. HTN - somewhat elevated in ER - continue current therapy and adjust as neede. 6. Debility - does ambulate some in the apartment, but has difficulty and lives by herself. Will have PTOT evals while here. DVT ppx: warfarin DC planning: PTOT This patient was seen by Gus Lundy PA-C under the supervision of Doctor No.
--- NOTE | 2018-01-30 16:28 | HP.PCM_ITS ---
<Wil Sarabia - Last Filed: 01/30/18 16:41> Problem List (1) Leg wound, left Status: Acute Qualifiers: Encounter type: initial encounter Qualified Code(s): S81.802A - Unspecified open wound, left lower leg, initial encounter History of Present Illness The patient is a 67 year old F had a large blister on her medial side of her left ankle on roof. Patient's wound care team was concerned. Patient sent wound care team consist primarily of home nursing and the patient was sent to the emergency room. Patient had redness of her lower extremities attributable to her lymphedema and venous stasis changes and is concerning for cellulitis the patient was started on vancomycin. Patient has had extensive history of and has been poorly compliant with proper management and has been referred to a lymphedema clinic to further assist her. Patient states that at home she is normally aides that come out to her house every Friday with Friday to assess her with her wound care. [] Past Medical History Past Medical History (Chronic Problems): Chronic Problems Super obesity (Chronic) Venous stasis ulcers of both lower extremities (Chronic) Hypertension (Chronic) Hyperlipidemia (Chronic) DVT (deep venous thrombosis) (Chronic) Pulmonary embolism (Chronic) Neuropathic pain (Chronic) Nausea (Chronic) Hypomagnesemia (Chronic) Morbid obesity (Chronic) Hypothyroidism (Chronic) GERD (gastroesophageal reflux disease) (Chronic) Diabetes mellitus (Chronic) Chronic Lymphedema (Chronic) Unspecified open wound, left thigh, initial encounter (Chronic) Venous stasis ulcer of left lower leg with edema of left lower leg (Chronic) Lymphedema of both lower extremities (Chronic) Venous stasis ulcer of right lower leg with edema of right lower leg (Chronic) Cellulitis of leg, right (Chronic) Allergies No Known Allergies Allergy (Verified 01/23/18 11:38) Home Medications: Ambulatory Orders Medication Instructions Recorded Levothyroxine Sodium [Levoxyl] 100 mcg PO DAILY 09/18/14 Lisinopril [Zestril] 20 mg PO DAILY 09/18/14 Metformin HCl [Glucophage] 500 mg PO BIDCM 09/18/14 Warfarin [Coumadin] 1 mg PO TUTH 09/18/14 Furosemide 60 mg PO DAILY 03/21/16 Gabapentin [Neurontin] 300 mg PO QHS 09/29/16 Ondansetron [Zofran Odt] 4 mg PO Q8H PRN PRN #10 tab 09/20/17 Warfarin [Coumadin] 2 mg PO SUMOWEFRSA 09/24/17 Famotidine [Pepcid] 20 mg PO DAILY 09/27/17 Atorvastatin Calcium 20 mg PO QHS 01/30/18 Diphenoxylate/Atrop [Lomotil] 1 tab PO PRN PRN 01/30/18 Hydrocodone/Acetaminophen 1 tab PO Q8H PRN PRN 01/30/18 [Hydrocodone-Acetamin 5-325 mg] Nystatin Powder [Mycostatin Powder] 1 applicatio TP PRN PRN 01/30/18 Nystatin [Nystatin] 1 applic TP PRN PRN 01/30/18 Surgical History: appendectomy, hysterectomy, tonsillectomy Psychiatric History: No pertinent psych hx DETACKER History: No pertinent DETACKER history Smoking Status: Never smoker Tobacco Use: Non-smoker Alcohol: None Drugs: None - *Family History Maternal History Items: Diabetes Paternal History Items: Diabetes, Heart Disease Review of Systems Constitutional: Denies: Chills, Fever, Weight Change Eyes: Reports: - - Glasses. Denies: Blurred vision, Double vision HEENT: Denies: Head Aches, Sinus Congestion, Sinus Drainage Cardiovascular: Denies: Chest Pain, Palpitations Respiratory: Denies: Cough, Shortness of breath at rest, Sputum production Gastrointestinal: Denies: Abdominal Pain, Nausea, Vomiting Genitourinary: Denies: Dysuria Musculoskeletal: Denies: Joint Pain, Joint Tenderness Skin: Reports: -. Denies: Rash, Wounds Neurological: Denies: Focal weakness, Numbness, Tingling Psychiatric: Denies: Anxiety, Depression, Homicidal Ideations, Suicidal Ideations Hematologic/ Lymphatic: Reports: Hx of blood clot. Denies: Easy Bruising, Easy Bleeding Comment: All review of systems are negative except as mentioned in the history of present illness and the other review of systems. VTE Information - Inpt Only VTE Present on Admission: No VTE Mechan Device Prophylaxis: None VTE Pharm Prophylaxis ordered?: Yes Patient Problems: Active and Suspected Problems Lymphedema (Acute) Leg wound, left (Acute) - Physical Exam General: Alert, Cooperative, - - Morbidly obese. Disheveled appearance. HEENT: Atraumatic, Normocephalic Oral: Moist Mucosa, No Gingival or Mucosal Lesions/ Ulcerations Lungs: Clear to auscultation, Normal air movement, No rhonchi, No wheeze Cardiovascular: Regular rate, Regular Rhythm, Normal S1, Normal S2 Abdomen: Bowel Sounds Present, Soft, Non Tender, Non-Distended, Obese Extremities: - Skin: - - Venous stasis dermatitis of lower extremities. And unroofed bullae on her medial left and with red tissue. No fluctuance, no purulence noted. Neurological: Muscle tone normal, Sensory exam intact to light touch and pain Psych/Mental Status: Appropriate, Flat Affect Vital Signs Temp Pulse Resp BP Pulse Ox 36.4 C L 82 20 H 145/80 H 98 01/30/18 13:22 01/30/18 15:29 01/30/18 15:29 01/30/18 15:29 01/30/18 15:29 Oxygen Delivery Method Room Air Weight: 185.8 kg Body Mass Index (BMI) 74.9 Laboratory Tests Past 24 Hrs 01/30/18 01/30/18 01/30/18 14:30 14:30 14:30 WBC 7.7 RBC 3.56 L Hgb 10.7 L Hct 34.7 L MCV 97.5 MCH 30.1 MCHC 30.8 L RDW 14.2 RDW Differential 50.9 H Plt Count 246 MPV 10.5 Immature Gran % (Auto) 0.100 Neut % (Auto) 80.0 H Lymph % (Auto) 11.0 L [place] % (Auto) 7.4 Eos % (Auto) 1.2 Baso % (Auto) 0.3 Absolute Neuts (auto) 6.2 Absolute Lymphs (auto) 0.85 Total Counted Not Reportable PT 18.9 H INR 1.6 Sodium 141 Potassium 4.1 Chloride 106 Carbon Dioxide 31.0 Anion Gap 4 L BUN 14 Creatinine 1.06 H Estim Creat Clear Calc 41.85 Est GFR (MDRD) Af Amer 67 Est GFR (MDRD) Non-Af 55 L BUN/Creatinine Ratio 13.2 Glucose 134 H Calcium 8.7 Assessment/Plan All Active Problems Cellulitis (Acute) Cellulitis of leg, left (Acute) Lymphedema (Acute) Leg wound, left (Acute) Sepsis (Resolved) Patient seen and examined independently. Data reviewed. I agree with the above note by the physician purchasing assistant. 1. Left lower extremity wound * This is secondary to the patient's chronic lymphedema in which a bullae finally unroofed * I do not appreciate any any cellulitis at this time. That was noted to the patient on several occasions that when she has these wounds are good pose a risk for her developing a infection * Routine wound care and have the wound care team see her. * . The patient has been fired by the wound care service due to noncompliance. Patient follow up with the lymphedema clinic * Patient did receive vancomycin in the emergency room continuing that as I do not feel that there is any actual infection at this time but if infection does develop then will reevaluate at that time. 2. Lymphedema * Complicating care * Patient's weight is up from previous. Her weight is measuring 185.8 kg and appears at her baseline is around 172-173 kg * We will increase the patient's Lasix from 60 once daily to 60 twice daily * Will check an echocardiogram to evaluate if patient does have pulmonary hypertension. I am concerned the patient probably has underlying sleep apnea that require outpatient polysomnogram. 3. Venous thromboembolic disease * Patient is on Coumadin but her INR is subtherapeutic * Will continue with Coumadin and add weight-based Lovenox until her INR is therapeutic 4. Diabetes mellitus type 2 * Continue with metformin but also add sliding scale for the time being 5. Candidiasis * Patient will be on nystatin 6. Debility, suspected * Patient states that she is normally ambulatory able to perform ADLs * I am surprised by the claim but will have physical and occupational therapy evaluate her Code Visit Inpatient E&M: 34496 Init Hosp L3 <Gus Lundy - Last Filed: 01/30/18 16:58> Problem List (1) Lymphedema Status: Acute (2) DVT (deep venous thrombosis) Status: Chronic (3) Diabetes mellitus Status: Chronic (4) GERD (gastroesophageal reflux disease) Status: Chronic (5) Hyperlipidemia Status: Chronic (6) Hypertension Status: Chronic (7) Hypothyroidism Status: Chronic (8) Super obesity Status: Chronic History of Present Illness Date of Admission: 01/30/18 Chief Complaint: swelling BLE The patient is a 67 year old F with a hx of severe lympedema, cellulitis of the legs, DMt2, HTN, HLD, DVT/PE on coumadin, who presents to the ER with increased swelling of the BLE. She was dismissed from the wound care center in December as she was noncompliant with her home wound care and lymphedema pumps and advised to follow up with the lymphedema clinic in [place]. She notes that since discharge her legs have progressively worsened. They have become more swollen and large blisters have formed. These blisters today opened up when she was putting her shorts on. She states that liquid came out but she could not see it. She has no fevers or chills. She does have a hx of cellulitis with multiple bacteria including pseducomonas, strep viridans, and MSSA. She has been treated by Dr. Florez in the past. Currently she does not have fever or leukocytosis. She does not feel unwell other than her legs being more swollen. No recent illness. No recent antibiotic use. No pets. [] Past Medical History Allergies No Known Allergies Allergy (Verified 01/23/18 11:38) Surgical History: appendectomy, hysterectomy, tonsillectomy Psychiatric History: No pertinent psych hx DETACKER History: No pertinent DETACKER history Smoking Status: Never smoker - *Family History Maternal History Items: Diabetes Paternal History Items: Diabetes, Heart Disease Review of Systems Constitutional: Denies: Chills, Fever, Weight Change HEENT: Denies: Head Aches, Sinus Congestion, Sinus Drainage Cardiovascular: Denies: Chest Pain, Palpitations Respiratory: Denies: Cough, Shortness of breath at rest, Sputum production Gastrointestinal: Denies: Abdominal Pain, Nausea, Vomiting Genitourinary: Denies: Dysuria Musculoskeletal: Denies: Joint Pain, Joint Tenderness Skin: Reports: - - severe lymphedema with some erythema, open blisters BLE. Denies: Rash, Wounds Neurological: Denies: Numbness, Tingling, Focal weakness Psychiatric: Denies: Anxiety, Depression, Homicidal Ideations, Suicidal Ideations Hematologic/ Lymphatic: Denies: Easy Bruising, Easy Bleeding VTE Information - Inpt Only VTE Present on Admission: No VTE Mechan Device Prophylaxis: None VTE Pharm Prophylaxis ordered?: Yes - Physical Exam General: Alert, Oriented x3, Cooperative HEENT: Atraumatic, PERRLA, EOMI, Normocephalic Neck: Supple, No JVD, Negative Carotid Bruits Lungs: Clear to auscultation, Normal air movement Cardiovascular: Regular rate, No murmurs Abdomen: Bowel Sounds Present, Soft, Non Tender Extremities: Capillary Refill Less than 3 Seconds, - - severe lymphedema, open blisters, erythema, no purulence. no excessive warmth. Skin: No rashes, No breakdown Musculoskeletal: No Tenderness to Palpation of Joints or Extremities Neurological: Cranial nerves II-XII grossly intact Psych/Mental Status: Normal Affect, Appropriate, Alert and oriented to time, place, person, mood and affect Vital Signs Temp Pulse Resp BP Pulse Ox 97.5 F L 82 20 H 145/80 H 98 01/30/18 13:22 01/30/18 15:29 01/30/18 15:29 01/30/18 15:29 01/30/18 15:29 Oxygen Delivery Method Room Air Weight: 409 lb 9.902 oz Body Mass Index (BMI) 74.9 Laboratory Tests Past 24 Hrs 01/30/18 01/30/18 01/30/18 14:30 14:30 14:30 WBC 7.7 RBC 3.56 L Hgb 10.7 L Hct 34.7 L MCV 97.5 MCH 30.1 MCHC 30.8 L RDW 14.2 RDW Differential 50.9 H Plt Count 246 MPV 10.5 Immature Gran % (Auto) 0.100 Neut % (Auto) 80.0 H Lymph % (Auto) 11.0 L [place] % (Auto) 7.4 Eos % (Auto) 1.2 Baso % (Auto) 0.3 Absolute Neuts (auto) 6.2 Absolute Lymphs (auto) 0.85 Total Counted Not Reportable PT 18.9 H INR 1.6 Sodium 141 Potassium 4.1 Chloride 106 Carbon Dioxide 31.0 Anion Gap 4 L BUN 14 Creatinine 1.06 H Estim Creat Clear Calc 41.85 Est GFR (MDRD) Af Amer 67 Est GFR (MDRD) Non-Af 55 L BUN/Creatinine Ratio 13.2 Glucose 134 H Calcium 8.7 Assessment/Plan 1. Progressively worsening lymphedema - doubt cellulitis at this time. Did receive vanco in ER x1. Defer further abx. Consult wound care. Pt dismissed from wound care center in [place] for noncompliance and not using proper lymphedema pumps at home. This appears consistent with untreated lymphedema. No fever or white count, patient appears nontoxic. Also appears to have intertrigo - nystatin. Continue lasix. 2. DMt2 and morbid obesity - dietary consult. continue home meds + sliding scale. 3. Hx DVT / PE - INR subtherapeutic, repeat in AM. Continue warfarin. 4. HLD - statin 5. HTN - somewhat elevated in ER - continue current therapy and adjust as neede. 6. Debility - does ambulate some in the apartment, but has difficulty and lives by herself. Will have PTOT evals while here. DVT ppx: warfarin DC planning: PTOT This patient was seen by Gus Lundy PA-C under the supervision of Doctor Sarabia.
[2018-01-30 17:22] VITALS: BP 125/75; PULSE 73; RESP 20; O2SAT 98
--- NOTE | 2018-01-30 17:50 | ECHOD_ITS ---
Reason For Study: Edema Procedure This was a 2D Doppler, Color Flow transthoracic echocardiogram. The study was technically difficult. Exam performed portable in patient room. Left Ventricle Normal LV size. Mild concentric left ventricular hypertrophy. The estimated ejection fraction is 65 %. Stage 1 diastolic dysfunction. Right Ventricle Normal right ventricle. Normal systolic function. Atria Normal left atrium. Normal right atrium. Aneurysmal atrial septum. Mitral Valve The mitral valve is structurally normal. No prolapse or stenosis seen. Tricuspid Valve Trivial tricuspid valve insufficiency. Normal pulmonary artery pressure. Aortic Valve Normal aortic valve. There is no aortic stenosis. Pulmonic Valve The pulmonic valve is not well visualized. Great Vessels Mildly dilated aortic root. Pericardium/Pleural No pericardial effusion. MMode/2D Measurements & Calculations LVIDd: 4.7 cm IVSd: 1.5 cm LVOT diam: 2.0 cm LVIDs: 3.1 cm LVPWd: 1.1 cm LVOT area: 3.3 cm2 FS: 34.6 % Ao root diam: 3.7 cm LAV(MOD-bp): 44.8 ml LVAd ap4: 27.2 cm2 LA dimension: 3.5 cm LAV(MOD-bp) Indexed: 17.5 ml/m2 EDV(MOD-sp4): 81.9 ml LAV(MOD-sp2): 40.3 ml EDV(sp4-el): 90.2 ml LAV(MOD-sp4): 45.0 ml LVAs ap4: 15.9 cm2 ESV(MOD-sp4): 35.9 ml ESV(sp4-el): 39.4 ml EF(MOD-sp4): 56.2 % EF(sp4-el): 56.3 % SV(MOD-sp4): 46.0 ml SV(sp4-el): 50.8 ml LA A4 area: 17.1 cm2 RA A4 area: 11.6 cm2 Time Measurements MV dec time: 0.19 sec Doppler Measurements & Calculations MV E max brendon: 92.3 cm/sec Lat Peak E' Brendon: 14.1 cm/sec Med Peak E' Brendon: 9.6 cm/sec MV A max brendon: 103.6 cm/sec E/E' lat: 6.6 E/E' med: 9.6 MV E/A: 0.89 MV V2 max: 124.7 cm/sec MV P1/2t max brendon: 106.9 cm/sec Ao V2 max: 154.1 cm/sec MV max P.3 mmHg MV P1/2t: 77.3 msec Ao max P.5 mmHg MV V2 mean: 69.6 cm/sec MV dec slope: 405.1 cm/sec2 Ao V2 mean: 98.9 cm/sec MV mean P.3 mmHg MVA(P1/2t): 2.8 cm2 Ao mean P.5 mmHg MV V2 VTI: 27.2 cm Ao V2 VTI: 29.9 cm MVA(VTI): 3.3 cm2 RIGOBERTO(I,D): 3.0 cm2 RIGOBERTO(V,D): 3.1 cm2 LV V1 max: 145.6 cm/sec SV(LVOT): 90.9 ml PA V2 max: 113.6 cm/sec LV V1 max P.5 mmHg LV V1 mean P.0 mmHg LV V1 mean: 91.8 cm/sec LV V1 VTI: 27.7 cm TR max brendon: 262.4 cm/sec TR max P.5 mmHg Interpretation Summary Mild concentric left ventricular hypertrophy. The estimated ejection fraction is 65 %. Stage 1 diastolic dysfunction. Aneurysmal atrial septum. Mildly dilated aortic root. Ordering Physician: Wil Sarabia Referring Physician: Cirilo Locke Performed By: Gelacio Mays RCS
[2018-01-30 17:52] VITALS: BP 133/82; PULSE 89; RESP 18; TEMP 36.2; O2SAT 100
[2018-01-30 18:04] VITALS: BMI 73.0
[2018-01-30 18:38] LABS: Prealbumin 13.5 mg/dL (20.0-40.0)
[2018-01-30] MEDS: Atorvastatin Calcium 20 MG Tablet PO (22:27)
[2018-01-30] MEDS: Gabapentin 300 MG Capsule PO (22:27)
[2018-01-30] MEDS: Enoxaparin 150 MG/ML Syringe SC (22:27)
[2018-01-30] MEDS: Furosemide 40 MG Tablet 60 MG PO (22:27)
[2018-01-30 23:50] VITALS: BP 147/76; PULSE 84; RESP 18; TEMP 36.6; O2SAT 98
[2018-01-31] MEDS: Nystatin Ointment 1 APPLIC TOPICAL ×3 (00:08→21:38)
[2018-01-31 04:42] VITALS: BP 138/77; PULSE 90; RESP 18; TEMP 36.7; O2SAT 97
--- NOTE | 2018-01-31 04:45 | NURSING ---
PATIENT STATED SHE COULD NOT TELL WHEN SHE HAD TO URINATE, INCONTINENCE X1 WITH COMPLETE BED CHANGE; TO AVOID FURTHER RISK OF INFECTION TO BLE, A PUREWICK WAS APPLIED. PATIENT IS TOLERATING APPLIANCE WELL.
[2018-01-31] MEDS: Levothyroxine 100 MCG Tablet PO (05:23)
[2018-01-31 09:00] LABS: Absolute Lymphocyte Count 0.99 X10^3/ul (0.83-4.51); Absolute Neutrophil Count 5.7 X10^3/uL (2.0-7.7); Basophil# 0.01 X10^3/uL; Basophil% 0.1 % (0-1); Eosinophils% 1.4 % (0-5); Hematocrit 34.6 % (37-47); Hemoglobin 10.9 g/dl (12.0-15.0); Lymphocyte # 0.99 X10^3/ul (4.0); Lymphocyte % 13.5 % (19-41); Mean Corp Hgb Conc 31.5 g/gl (32-36); Mean Corpuscular Hgb 30.4 pg (27.0-32.0); Mean Corpuscular Volume 96.4 fL (81-99); Mean Platelet Vol. 10.5 fl (6.2-12.0); Monocyte# 0.59 X10^3/uL; Neutrophil # 5.65 X10^3/uL (2.7-7.7); Neutrophil % 76.9 % (47-70); POSITIVE COUNT NO; POSITIVE DIFFERENTIAL NO; POSITIVE MORPHOLOGY NO; Platelet Count 244 K/mm3 (150-450); RBC Distribution Width CV 14.2 % (11.6-14.6); Red Blood Count 3.59 M/mm3 (4.2-5.4); White Blood Count 7.4 K/mm3 (4.4-11.0)
[2018-01-31 09:11] LABS: International Normalized Ratio 1.6; Prothrombin Time (Protime)PT. 19.2 SECONDS (11.7-14.9)
[2018-01-31 09:29] LABS: Anion Gap 11 (5-15); BUN 11 mg/dL (7-18); BUN/Creat Ratio 11.8 RATIO (10-20); Calcium,Total 8.5 mg/dL (8.5-10.1); Chloride 105 mmol/L (98-107); Creatinine, Serum 0.93 mg/dL (0.55-1.02); EST Glomerular Filtration Rate 64 mL/min (>60); Est Glom Filt Rate - Afr Amer 78 mL/min (>60); Glucose 111 mg/dL (74-106); Sodium Level 145 mmol/L (136-145)
[2018-01-31 09:38] VITALS: BP 144/78; PULSE 94; RESP 18; TEMP 36.2; O2SAT 96
[2018-01-31] MEDS: Famotidine 20 MG Tablet PO (09:41)
[2018-01-31] MEDS: Furosemide 40 MG Tablet 60 MG PO ×2 (09:42→21:36)
[2018-01-31] MEDS: Enoxaparin 150 MG/ML Syringe SC ×2 (09:43→21:38)
[2018-01-31] MEDS: Lisinopril 20 MG Tablet PO (09:45)
--- NOTE | 2018-01-31 12:47 | PCM.PROGNOTE ---
<Gus Lundy - Last Filed: 01/31/18 12:47> Patient Problems: Active and Suspected Problems Lymphedema (Acute) Leg wound, left (Acute) Subjective: Patient reports overall she feels improved, she has no pain at all today in her legs. Her legs have been dressed. She has no fevers or chills, no shortness of breath or cough. She reports that she has an appointment with the lymphedema clinic at [facility] in [place] on February 10. She reports that she is supposed to be wearing her lymphedema pumps daily however she only uses them about once a week-last use was Friday. - Physical Exam General: Alert, Oriented x3, Cooperative HEENT: Atraumatic, PERRLA, EOMI, Normocephalic Neck: Supple, No JVD, Negative Carotid Bruits Lungs: Clear to auscultation, Normal air movement Cardiovascular: Regular rate, No murmurs Abdomen: Bowel Sounds Present, Soft, Non Tender Extremities: Capillary Refill Less than 3 Seconds, Edema - Minimally changed, still edematous, some areas of erythema, no significant warmth, no significant drainage. No purulence appreciated. No lymphatic stranding. Skin: No rashes, No breakdown Musculoskeletal: No Tenderness to Palpation of Joints or Extremities Neurological: Cranial nerves II-XII grossly intact Psych/Mental Status: Normal Affect, Appropriate, Alert and oriented to time, place, person, mood and affect Vital Signs Temp Pulse Resp BP Pulse Ox 97.1 F L 94 18 144/78 H 96 01/31/18 09:38 01/31/18 09:38 01/31/18 09:38 01/31/18 09:38 01/31/18 09:38 Oxygen Delivery Method Room Air Weight: 399 lb 0.587 oz Body Mass Index (BMI) 73.0 Intake and Output for Last 24 Hours 01/29/18 01/30/18 01/31/18 23:59 23:59 23:59 Intake Total 918 / 918 Output Total 3000 / 3000 1625 / 1625 Balance -3000 / -3000 -707 / -707 Laboratory Tests Past 24 Hrs 01/31/18 01/31/18 01/31/18 08:05 08:05 08:35 WBC 7.4 RBC 3.59 L Hgb 10.9 L Hct 34.6 L MCV 96.4 MCH 30.4 MCHC 31.5 L RDW 14.2 RDW Differential 50.0 H Plt Count 244 MPV 10.5 Immature Gran % (Auto) 0.100 Neut % (Auto) 76.9 H Lymph % (Auto) 13.5 L [place] % (Auto) 8.0 Eos % (Auto) 1.4 Baso % (Auto) 0.1 Absolute Neuts (auto) 5.7 Absolute Lymphs (auto) 0.99 Total Counted Not Reportable PT 19.2 H INR 1.6 Sodium 145 Potassium 4.0 Chloride 105 Carbon Dioxide 29.0 Anion Gap 11 BUN 11 Creatinine 0.93 Estim Creat Clear Calc 47.70 Est GFR (MDRD) Af Amer 78 Est GFR (MDRD) Non-Af 64 BUN/Creatinine Ratio 11.8 Glucose 111 H Calcium 8.5 Medical Necessity - Tobacco Use Smoking Status: Never smoker Tobacco Use: Non-smoker Assessment/Plan All Active Problems Cellulitis (Acute) Cellulitis of leg, left (Acute) Lymphedema (Acute) Leg wound, left (Acute) Sepsis (Resolved) 1. Progressively worsening lymphedema - doubt cellulitis. No fever / wbc elevation, nontoxic in appearance. No pain. Did receive vanco in ER x1. Defer further abx. Consult wound care. Pt dismissed from wound care center in [place] for noncompliance and not using proper lymphedema pumps at home. Legs currently appear consistent with untreated lymphedema. -Continue wound care -pt needs to use pumps daily at home -pt has follow up with lymphedema clinic in [place] later this month -physician/allergy/immunology consult for wound healing supplements 2. DMt2 and morbid obesity - dietary consult. continue home meds + sliding scale. 3. Hx DVT / PE - INR subtherapeutic, repeat in AM. Continue warfarin. Additional 1 mg tonight. 4. HLD - statin 5. HTN - stable 6. Debility - does ambulate some in the apartment, but has difficulty and lives by herself. Will have PTOT evals while here. 7. Normocytic anemia - stable. No evidence of bleeding. DVT ppx: warfarin DC planning: PTOT This patient was seen by Gus Lundy PA-C under the supervision of Doctor Sarabia. <Wil Sarabia - Last Filed: 01/31/18 13:19> - Physical Exam General: Alert, Cooperative, - - lying in bed, afebrile HEENT: Atraumatic, Normocephalic Lungs: Clear to auscultation, Normal air movement, No rhonchi, No wheeze Cardiovascular: Regular rate, Regular Rhythm, Normal S1, Normal S2, No murmurs Abdomen: Bowel Sounds Present, Soft, Non Tender, Non-Distended, Obese Extremities: Edema Skin: - - venous stasis dermatitis with unroofed bullae on LLE. Musculoskeletal: No Tenderness to Palpation of Joints or Extremities, No Muscle Wasting Psych/Mental Status: Appropriate, Flat Affect Vital Signs Temp Pulse Resp BP Pulse Ox 36.2 C L 94 18 144/78 H 96 01/31/18 09:38 01/31/18 09:38 01/31/18 09:38 01/31/18 09:38 01/31/18 09:38 Oxygen Delivery Method Room Air Weight: 181 kg Body Mass Index (BMI) 73.0 Intake and Output for Last 24 Hours 01/29/18 01/30/18 01/31/18 23:59 23:59 23:59 Intake Total 918 / 918 Output Total 3000 / 3000 1625 / 1625 Balance -3000 / -3000 -707 / -707 Laboratory Tests Past 24 Hrs 01/31/18 01/31/18 01/31/18 08:05 08:05 08:35 WBC 7.4 RBC 3.59 L Hgb 10.9 L Hct 34.6 L MCV 96.4 MCH 30.4 MCHC 31.5 L RDW 14.2 RDW Differential 50.0 H Plt Count 244 MPV 10.5 Immature Gran % (Auto) 0.100 Neut % (Auto) 76.9 H Lymph % (Auto) 13.5 L [place] % (Auto) 8.0 Eos % (Auto) 1.4 Baso % (Auto) 0.1 Absolute Neuts (auto) 5.7 Absolute Lymphs (auto) 0.99 Total Counted Not Reportable PT 19.2 H INR 1.6 Sodium 145 Potassium 4.0 Chloride 105 Carbon Dioxide 29.0 Anion Gap 11 BUN 11 Creatinine 0.93 Estim Creat Clear Calc 47.70 Est GFR (MDRD) Af Amer 78 Est GFR (MDRD) Non-Af 64 BUN/Creatinine Ratio 11.8 Glucose 111 H Calcium 8.5 Assessment/Plan Patient seen and examined independently. Data reviewed. I agree with the above note by the physician learning support assistant. 1. Left lower extremity wound This is secondary to the patient's chronic lymphedema in which a bullae finally unroofed I do not appreciate any any cellulitis at this time. That was noted to the patient on several occasions that when she has these wounds are good pose a risk for her developing a infection Routine wound care and have the wound care team see her. . The patient has been fired by the wound care service due to noncompliance. Patient follow up with the lymphedema clinic Patient did receive vancomycin in the emergency room continuing that as I do not feel that there is any actual infection at this time but if infection does develop then will reevaluate at that time. 2. Lymphedema Complicating care Patient's weight is up from previous. Her weight is measuring 185.8 kg and appears at her baseline is around 172-173 kg We will increase the patient's Lasix from 60 once daily to 60 twice daily Will check an echocardiogram to evaluate if patient does have pulmonary hypertension. I am concerned the patient probably has underlying sleep apnea that require outpatient polysomnogram. 3. Venous thromboembolic disease Patient is on Coumadin but her INR is subtherapeutic Will continue with Coumadin and add weight-based Lovenox until her INR is therapeutic 4. Diabetes mellitus type 2 Continue with metformin but also add sliding scale for the time being 5. Candidiasis Patient will be on nystatin 6. Debility, suspected Patient states that she is normally ambulatory able to perform ADLs I am surprised by the claim but will have physical and occupational therapy evaluate her 7. Protein calorie malnutrition: moderate, despite obesity class III Prealb 13.5 supplements consult nutrition 8. Obesity class III previously emphasized weight loss with patient complicating care. Code Visit Inpatient E&M: 93243 Subs Hosp L2
--- NOTE | 2018-01-31 12:53 | PN_ITS ---
<Gus Lundy - Last Filed: 01/31/18 12:47> Patient Problems: Active and Suspected Problems Lymphedema (Acute) Leg wound, left (Acute) Subjective: Patient reports overall she feels improved, she has no pain at all today in her legs. Her legs have been dressed. She has no fevers or chills, no shortness of breath or cough. She reports that she has an appointment with the lymphedema clinic at [facility] in [place] on February 10. She reports that she is supposed to be wearing her lymphedema pumps daily however she only uses them about once a week-last use was Friday. - Physical Exam General: Alert, Oriented x3, Cooperative HEENT: Atraumatic, PERRLA, EOMI, Normocephalic Neck: Supple, No JVD, Negative Carotid Bruits Lungs: Clear to auscultation, Normal air movement Cardiovascular: Regular rate, No murmurs Abdomen: Bowel Sounds Present, Soft, Non Tender Extremities: Capillary Refill Less than 3 Seconds, Edema - Minimally changed, still edematous, some areas of erythema, no significant warmth, no significant drainage. No purulence appreciated. No lymphatic stranding. Skin: No rashes, No breakdown Musculoskeletal: No Tenderness to Palpation of Joints or Extremities Neurological: Cranial nerves II-XII grossly intact Psych/Mental Status: Normal Affect, Appropriate, Alert and oriented to time, place, person, mood and affect Vital Signs Temp Pulse Resp BP Pulse Ox 97.1 F L 94 18 144/78 H 96 01/31/18 09:38 01/31/18 09:38 01/31/18 09:38 01/31/18 09:38 01/31/18 09:38 Oxygen Delivery Method Room Air Weight: 399 lb 0.587 oz Body Mass Index (BMI) 73.0 Intake and Output for Last 24 Hours 01/29/18 01/30/18 01/31/18 23:59 23:59 23:59 Intake Total 918 / 918 Output Total 3000 / 3000 1625 / 1625 Balance -3000 / -3000 -707 / -707 Laboratory Tests Past 24 Hrs 01/31/18 01/31/18 01/31/18 08:05 08:05 08:35 WBC 7.4 RBC 3.59 L Hgb 10.9 L Hct 34.6 L MCV 96.4 MCH 30.4 MCHC 31.5 L RDW 14.2 RDW Differential 50.0 H Plt Count 244 MPV 10.5 Immature Gran % (Auto) 0.100 Neut % (Auto) 76.9 H Lymph % (Auto) 13.5 L Addison % (Auto) 8.0 Eos % (Auto) 1.4 Baso % (Auto) 0.1 Absolute Neuts (auto) 5.7 Absolute Lymphs (auto) 0.99 Total Counted Not Reportable PT 19.2 H INR 1.6 Sodium 145 Potassium 4.0 Chloride 105 Carbon Dioxide 29.0 Anion Gap 11 BUN 11 Creatinine 0.93 Estim Creat Clear Calc 47.70 Est GFR (MDRD) Af Amer 78 Est GFR (MDRD) Non-Af 64 BUN/Creatinine Ratio 11.8 Glucose 111 H Calcium 8.5 Medical Necessity - Tobacco Use Smoking Status: Never smoker Tobacco Use: Non-smoker Assessment/Plan All Active Problems Cellulitis (Acute) Cellulitis of leg, left (Acute) Lymphedema (Acute) Leg wound, left (Acute) Sepsis (Resolved) 1. Progressively worsening lymphedema - doubt cellulitis. No fever / wbc elevation, nontoxic in appearance. No pain. Did receive vanco in ER x1. Defer further abx. Consult wound care. Pt dismissed from wound care center in [place] for noncompliance and not using proper lymphedema pumps at home. Legs currently appear consistent with untreated lymphedema. -Continue wound care -pt needs to use pumps daily at home -pt has follow up with lymphedema clinic in [place] later this month -chief digital officer consult for wound healing supplements 2. DMt2 and morbid obesity - dietary consult. continue home meds + sliding scale. 3. Hx DVT / PE - INR subtherapeutic, repeat in AM. Continue warfarin. Additional 1 mg tonight. 4. HLD - statin 5. HTN - stable 6. Debility - does ambulate some in the apartment, but has difficulty and lives by herself. Will have PTOT evals while here. 7. Normocytic anemia - stable. No evidence of bleeding. DVT ppx: warfarin DC planning: PTOT This patient was seen by Gus Lundy PA-C under the supervision of Doctor Sarabia. <Wil Sarabia - Last Filed: 01/31/18 13:19> - Physical Exam General: Alert, Cooperative, - - lying in bed, afebrile HEENT: Atraumatic, Normocephalic Lungs: Clear to auscultation, Normal air movement, No rhonchi, No wheeze Cardiovascular: Regular rate, Regular Rhythm, Normal S1, Normal S2, No murmurs Abdomen: Bowel Sounds Present, Soft, Non Tender, Non-Distended, Obese Extremities: Edema Skin: - - venous stasis dermatitis with unroofed bullae on LLE. Musculoskeletal: No Tenderness to Palpation of Joints or Extremities, No Muscle Wasting Psych/Mental Status: Appropriate, Flat Affect Vital Signs Temp Pulse Resp BP Pulse Ox 36.2 C L 94 18 144/78 H 96 01/31/18 09:38 01/31/18 09:38 01/31/18 09:38 01/31/18 09:38 01/31/18 09:38 Oxygen Delivery Method Room Air Weight: 181 kg Body Mass Index (BMI) 73.0 Intake and Output for Last 24 Hours 01/29/18 01/30/18 01/31/18 23:59 23:59 23:59 Intake Total 918 / 918 Output Total 3000 / 3000 1625 / 1625 Balance -3000 / -3000 -707 / -707 Laboratory Tests Past 24 Hrs 01/31/18 01/31/18 01/31/18 08:05 08:05 08:35 WBC 7.4 RBC 3.59 L Hgb 10.9 L Hct 34.6 L MCV 96.4 MCH 30.4 MCHC 31.5 L RDW 14.2 RDW Differential 50.0 H Plt Count 244 MPV 10.5 Immature Gran % (Auto) 0.100 Neut % (Auto) 76.9 H Lymph % (Auto) 13.5 L Addison % (Auto) 8.0 Eos % (Auto) 1.4 Baso % (Auto) 0.1 Absolute Neuts (auto) 5.7 Absolute Lymphs (auto) 0.99 Total Counted Not Reportable PT 19.2 H INR 1.6 Sodium 145 Potassium 4.0 Chloride 105 Carbon Dioxide 29.0 Anion Gap 11 BUN 11 Creatinine 0.93 Estim Creat Clear Calc 47.70 Est GFR (MDRD) Af Amer 78 Est GFR (MDRD) Non-Af 64 BUN/Creatinine Ratio 11.8 Glucose 111 H Calcium 8.5 Assessment/Plan Patient seen and examined independently. Data reviewed. I agree with the above note by the physician tiler's assistant. 1. Left lower extremity wound * This is secondary to the patient's chronic lymphedema in which a bullae finally unroofed * I do not appreciate any any cellulitis at this time. That was noted to the patient on several occasions that when she has these wounds are good pose a risk for her developing a infection * Routine wound care and have the wound care team see her. * . The patient has been fired by the wound care service due to noncompliance. Patient follow up with the lymphedema clinic * Patient did receive vancomycin in the emergency room continuing that as I do not feel that there is any actual infection at this time but if infection does develop then will reevaluate at that time. 2. Lymphedema * Complicating care * Patient's weight is up from previous. Her weight is measuring 185.8 kg and appears at her baseline is around 172-173 kg * We will increase the patient's Lasix from 60 once daily to 60 twice daily * Will check an echocardiogram to evaluate if patient does have pulmonary hypertension. I am concerned the patient probably has underlying sleep apnea that require outpatient polysomnogram. 3. Venous thromboembolic disease * Patient is on Coumadin but her INR is subtherapeutic * Will continue with Coumadin and add weight-based Lovenox until her INR is therapeutic 4. Diabetes mellitus type 2 * Continue with metformin but also add sliding scale for the time being 5. Candidiasis * Patient will be on nystatin 6. Debility, suspected * Patient states that she is normally ambulatory able to perform ADLs * I am surprised by the claim but will have physical and occupational therapy evaluate her 7. Protein calorie malnutrition: * moderate, despite obesity class III * Prealb 13.5 * supplements * consult nutrition 8. Obesity class III * previously emphasized weight loss with patient * complicating care. Code Visit Inpatient E&M: 06963 Subs Hosp L2
--- NOTE | 2018-01-31 15:29 | CASEMGMT ---
SOCIAL WORK: Referral received from hydroelectric operator this afternoon for SW consult to discuss SNF placement. SW met with patient in her room; introduced self and SW role with [facility]. Patient firmly but politely tells this SW that she is returning to her apartment when she leaves the hospital. She reports that she has Passport services and that she takes care of herself at home in addition to an aide coming on , and . Laura Oreilly is her Passport CM. Patient reports that she has an appointment at the [facility] on 02/10/18. PLAN: Patient currently refusing to consider SNF placement, even for short-term. Plans to return home with Passport. Encouraged patient to advise SW if she changes her mind. SW to follow. JORGE CANO updated. CARLIE Monroe
[2018-01-31 16:31] VITALS: BP 141/80; PULSE 86; RESP 18; TEMP 37; O2SAT 94
[2018-01-31] MEDS: Glucerna Shake 120 ML LIQUID PO (16:43)
[2018-01-31 20:02] VITALS: BP 142/78; PULSE 101; RESP 16; TEMP 36.7; O2SAT 97
[2018-01-31] MEDS: Atorvastatin Calcium 20 MG Tablet PO (21:35)
[2018-01-31] MEDS: Gabapentin 300 MG Capsule PO (21:39)
[2018-02-01 03:37] VITALS: BP 136/79; PULSE 81; RESP 16; TEMP 37.1; O2SAT 97
[2018-02-01] MEDS: Levothyroxine 100 MCG Tablet PO (05:25)
[2018-02-01 07:42] LABS: International Normalized Ratio 1.6; Prothrombin Time (Protime)PT. 18.7 SECONDS (11.7-14.9)
[2018-02-01] MEDS: Furosemide 40 MG Tablet 60 MG PO ×2 (09:01→22:53)
[2018-02-01] MEDS: Nystatin Ointment 1 APPLIC TOPICAL ×2 (09:02→22:53)
[2018-02-01] MEDS: Lisinopril 20 MG Tablet PO (09:03)
[2018-02-01] MEDS: Famotidine 20 MG Tablet PO (09:03)
[2018-02-01] MEDS: Enoxaparin 150 MG/ML Syringe SC ×2 (09:04→22:54)
[2018-02-01 09:08] VITALS: BP 156/94; PULSE 76; RESP 18; TEMP 36.7; O2SAT 96
[2018-02-01] MEDS: Glucerna Shake 120 ML LIQUID PO ×2 (11:38→16:32)
--- NOTE | 2018-02-01 14:12 | PCM.PROGNOTE ---
<Gus Lundy - Last Filed: 02/01/18 14:12> Patient Problems: Active and Suspected Problems Lymphedema (Acute) Leg wound, left (Acute) Subjective: No leg pain. She was only able to take a couple steps with PTOT with the help of a walker and states this was because she has chronic back and knee pain. She has no fevers or chills. JOVI wraps are in place. She states she may be able to get someone to obtain her Lymphedema pump from home today. - Physical Exam General: Alert, Oriented x3, Cooperative HEENT: Atraumatic, PERRLA, EOMI, Normocephalic Neck: Supple, No JVD, Negative Carotid Bruits Lungs: Clear to auscultation, Normal air movement, - Cardiovascular: Regular rate, No murmurs Abdomen: Bowel Sounds Present, Soft, Non Tender Extremities: Capillary Refill Less than 3 Seconds, Edema - unchanged, - - jovi wraps in palce. Skin: No rashes, No breakdown Musculoskeletal: No Tenderness to Palpation of Joints or Extremities Neurological: Cranial nerves II-XII grossly intact Psych/Mental Status: Normal Affect, Appropriate, Alert and oriented to time, place, person, mood and affect Vital Signs Temp Pulse Resp BP Pulse Ox 98.0 F 76 18 156/94 H 96 02/01/18 09:08 02/01/18 09:08 02/01/18 09:08 02/01/18 09:08 02/01/18 09:08 Oxygen Delivery Method Room Air Weight: 399 lb 0.587 oz Body Mass Index (BMI) 73.0 Intake and Output for Last 24 Hours 01/30/18 01/31/18 02/01/18 23:59 23:59 23:59 Intake Total 1918.9 / 1918.9 461.5 / 461.5 Output Total 3000 / 3000 7275 / 7275 2900 / 2900 Balance -3000 / -3000 -5356.1 / -5356.1 -2438.5 / -2438.5 Laboratory Tests Past 24 Hrs 02/01/18 06:45 PT 18.7 H INR 1.6 Medical Necessity - Tobacco Use Smoking Status: Never smoker Tobacco Use: Non-smoker Assessment/Plan All Active Problems Cellulitis (Acute) Cellulitis of leg, left (Acute) Lymphedema (Acute) Leg wound, left (Acute) Sepsis (Resolved) 1. Progressively worsening lymphedema - doubt cellulitis. No fever / wbc elevation, nontoxic in appearance. No pain. Did receive vanco in ER x1. Defer further abx. Consult wound care. Pt dismissed from wound care center in [place] for noncompliance and not using proper lymphedema pumps at home. Legs currently appear consistent with untreated lymphedema. -Continue wound care -pt needs to use pumps daily at home - will start here if she is able to have someone bring them. JOVI wrap until then. -pt has follow up with lymphedema clinic in [place] later this month -automation clerk consult for wound healing supplements 2. DMt2 and morbid obesity - dietary consult. continue home meds + sliding scale. 3. Hx DVT / PE - INR subtherapeutic, repeat in AM. Continue warfarin. Additional 1 mg tonight - repeat tonight. follow INR. 4. HLD - statin 5. HTN - stable 6. Debility - very poor functional status, may need placement 7. Normocytic anemia - stable. No evidence of bleeding. DVT ppx: warfarin DC planning: PTOT This patient was seen by Gus Lundy PA-C under the supervision of Doctor No. <Wil Sarabia - Last Filed: 02/01/18 14:30> Subjective: Only ambulated a few feet with therapy. Limited due to pain. - Physical Exam General: Oriented x3, Cooperative HEENT: Atraumatic, Normocephalic Lungs: Clear to auscultation, Normal air movement, No rhonchi, No wheeze Cardiovascular: Regular rate, Regular Rhythm, Normal S1, Normal S2, No murmurs Abdomen: Bowel Sounds Present, Soft, Non Tender, Non-Distended Extremities: Edema Skin: No rashes, No breakdown Musculoskeletal: No Tenderness to Palpation of Joints or Extremities Vital Signs Temp Pulse Resp BP Pulse Ox 36.7 C 76 18 156/94 H 96 02/01/18 09:08 02/01/18 09:08 02/01/18 09:08 02/01/18 09:08 02/01/18 09:08 Oxygen Delivery Method Room Air Weight: 181 kg Body Mass Index (BMI) 73.0 Intake and Output for Last 24 Hours 01/30/18 01/31/18 02/01/18 23:59 23:59 23:59 Intake Total 1918.9 / 1918.9 461.5 / 461.5 Output Total 3000 / 3000 7275 / 7275 2900 / 2900 Balance -3000 / -3000 -5356.1 / -5356.1 -2438.5 / -2438.5 Laboratory Tests Past 24 Hrs 02/01/18 06:45 PT 18.7 H INR 1.6 Assessment/Plan Patient seen and examined independently. Data reviewed. I agree with the above note by the physician news production assistant. 1. Left lower extremity wound This is secondary to the patient's chronic lymphedema in which a bullae finally unroofed I do not appreciate any any cellulitis at this time. That was noted to the patient on several occasions that when she has these wounds are good pose a risk for her developing a infection Routine wound care and have the wound care team see her. . The patient has been fired by the wound care service due to noncompliance. Patient follow up with the lymphedema clinic Patient did receive vancomycin in the emergency room continuing that as I do not feel that there is any actual infection at this time but if infection does develop then will reevaluate at that time. 2. Lymphedema Complicating care Patient's weight is up from previous. Her weight is measuring 185.8 kg and appears at her baseline is around 172-173 kg We will increase the patient's Lasix from 60 once daily to 60 twice daily Will check an echocardiogram to evaluate if patient does have pulmonary hypertension. I am concerned the patient probably has underlying sleep apnea that require outpatient polysomnogram. Patient have someone bring in her lymphedema pumps today or tomorrow 3. Venous thromboembolic disease Patient is on Coumadin but her INR is subtherapeutic Will continue with Coumadin and add weight-based Lovenox until her INR is therapeutic 4. Diabetes mellitus type 2 Continue with metformin but also add sliding scale for the time being 5. Candidiasis Patient will be on nystatin 6. Debility, suspected Patient states that she is normally ambulatory able to perform ADLs I am surprised by the claim but will have physical and occupational therapy evaluate her Patient only ambulate a couple feet without pain. Patient still insisting on going home Case management to help facilitate proper disposition 7. Protein calorie malnutrition: moderate, despite obesity class III Prealb 13.5 supplements consult nutrition 8. Obesity class III previously emphasized weight loss with patient complicating care. Code Visit Inpatient E&M: 51204 Subs Hosp L2
--- NOTE | 2018-02-01 14:16 | PN_ITS ---
<Gus Lundy - Last Filed: 02/01/18 14:12> Patient Problems: Active and Suspected Problems Lymphedema (Acute) Leg wound, left (Acute) Subjective: No leg pain. She was only able to take a couple steps with PTOT with the help of a walker and states this was because she has chronic back and knee pain. She has no fevers or chills. JOVI wraps are in place. She states she may be able to get someone to obtain her Lymphedema pump from home today. - Physical Exam General: Alert, Oriented x3, Cooperative HEENT: Atraumatic, PERRLA, EOMI, Normocephalic Neck: Supple, No JVD, Negative Carotid Bruits Lungs: Clear to auscultation, Normal air movement, - Cardiovascular: Regular rate, No murmurs Abdomen: Bowel Sounds Present, Soft, Non Tender Extremities: Capillary Refill Less than 3 Seconds, Edema - unchanged, - - jovi wraps in palce. Skin: No rashes, No breakdown Musculoskeletal: No Tenderness to Palpation of Joints or Extremities Neurological: Cranial nerves II-XII grossly intact Psych/Mental Status: Normal Affect, Appropriate, Alert and oriented to time, place, person, mood and affect Vital Signs Temp Pulse Resp BP Pulse Ox 98.0 F 76 18 156/94 H 96 02/01/18 09:08 02/01/18 09:08 02/01/18 09:08 02/01/18 09:08 02/01/18 09:08 Oxygen Delivery Method Room Air Weight: 399 lb 0.587 oz Body Mass Index (BMI) 73.0 Intake and Output for Last 24 Hours 01/30/18 01/31/18 02/01/18 23:59 23:59 23:59 Intake Total 1918.9 / 1918.9 461.5 / 461.5 Output Total 3000 / 3000 7275 / 7275 2900 / 2900 Balance -3000 / -3000 -5356.1 / -5356.1 -2438.5 / -2438.5 Laboratory Tests Past 24 Hrs 02/01/18 06:45 PT 18.7 H INR 1.6 Medical Necessity - Tobacco Use Smoking Status: Never smoker Tobacco Use: Non-smoker Assessment/Plan All Active Problems Cellulitis (Acute) Cellulitis of leg, left (Acute) Lymphedema (Acute) Leg wound, left (Acute) Sepsis (Resolved) 1. Progressively worsening lymphedema - doubt cellulitis. No fever / wbc elevation, nontoxic in appearance. No pain. Did receive vanco in ER x1. Defer further abx. Consult wound care. Pt dismissed from wound care center in [place] for noncompliance and not using proper lymphedema pumps at home. Legs currently appear consistent with untreated lymphedema. -Continue wound care -pt needs to use pumps daily at home - will start here if she is able to have someone bring them. JOVI wrap until then. -pt has follow up with lymphedema clinic in [place] later this month -manager studio consult for wound healing supplements 2. DMt2 and morbid obesity - dietary consult. continue home meds + sliding scale. 3. Hx DVT / PE - INR subtherapeutic, repeat in AM. Continue warfarin. Additional 1 mg tonight - repeat tonight. follow INR. 4. HLD - statin 5. HTN - stable 6. Debility - very poor functional status, may need placement 7. Normocytic anemia - stable. No evidence of bleeding. DVT ppx: warfarin DC planning: PTOT This patient was seen by Gus Lundy PA-C under the supervision of Doctor No. <Wil Sarabia - Last Filed: 02/01/18 14:30> Subjective: Only ambulated a few feet with therapy. Limited due to pain. - Physical Exam General: Oriented x3, Cooperative HEENT: Atraumatic, Normocephalic Lungs: Clear to auscultation, Normal air movement, No rhonchi, No wheeze Cardiovascular: Regular rate, Regular Rhythm, Normal S1, Normal S2, No murmurs Abdomen: Bowel Sounds Present, Soft, Non Tender, Non-Distended Extremities: Edema Skin: No rashes, No breakdown Musculoskeletal: No Tenderness to Palpation of Joints or Extremities Vital Signs Temp Pulse Resp BP Pulse Ox 36.7 C 76 18 156/94 H 96 02/01/18 09:08 02/01/18 09:08 02/01/18 09:08 02/01/18 09:08 02/01/18 09:08 Oxygen Delivery Method Room Air Weight: 181 kg Body Mass Index (BMI) 73.0 Intake and Output for Last 24 Hours 01/30/18 01/31/18 02/01/18 23:59 23:59 23:59 Intake Total 1918.9 / 1918.9 461.5 / 461.5 Output Total 3000 / 3000 7275 / 7275 2900 / 2900 Balance -3000 / -3000 -5356.1 / -5356.1 -2438.5 / -2438.5 Laboratory Tests Past 24 Hrs 02/01/18 06:45 PT 18.7 H INR 1.6 Assessment/Plan Patient seen and examined independently. Data reviewed. I agree with the above note by the physician laboratory assistant. 1. Left lower extremity wound * This is secondary to the patient's chronic lymphedema in which a bullae finally unroofed * I do not appreciate any any cellulitis at this time. That was noted to the patient on several occasions that when she has these wounds are good pose a risk for her developing a infection * Routine wound care and have the wound care team see her. * . The patient has been fired by the wound care service due to noncompliance. Patient follow up with the lymphedema clinic * Patient did receive vancomycin in the emergency room continuing that as I do not feel that there is any actual infection at this time but if infection does develop then will reevaluate at that time. 2. Lymphedema * Complicating care * Patient's weight is up from previous. Her weight is measuring 185.8 kg and appears at her baseline is around 172-173 kg * We will increase the patient's Lasix from 60 once daily to 60 twice daily * Will check an echocardiogram to evaluate if patient does have pulmonary hypertension. I am concerned the patient probably has underlying sleep apnea that require outpatient polysomnogram. * Patient have someone bring in her lymphedema pumps today or tomorrow 3. Venous thromboembolic disease * Patient is on Coumadin but her INR is subtherapeutic * Will continue with Coumadin and add weight-based Lovenox until her INR is therapeutic 4. Diabetes mellitus type 2 * Continue with metformin but also add sliding scale for the time being 5. Candidiasis * Patient will be on nystatin 6. Debility, suspected * Patient states that she is normally ambulatory able to perform ADLs * I am surprised by the claim but will have physical and occupational therapy evaluate her * Patient only ambulate a couple feet without pain. * Patient still insisting on going home * Case management to help facilitate proper disposition 7. Protein calorie malnutrition: * moderate, despite obesity class III * Prealb 13.5 * supplements * consult nutrition 8. Obesity class III * previously emphasized weight loss with patient * complicating care. Code Visit Inpatient E&M: 65053 Subs Hosp L2
[2018-02-01 15:00] VITALS: BP 150/78; PULSE 80; RESP 18; TEMP 36.6; O2SAT 98
[2018-02-01] MEDS: HYDROcodone Bitartrate/Apap 5/325 Tablet PO (16:31)
[2018-02-01 22:51] VITALS: BP 126/79; PULSE 89; RESP 18; TEMP 37; O2SAT 98
[2018-02-01] MEDS: Gabapentin 300 MG Capsule PO (22:53)
[2018-02-01] MEDS: Atorvastatin Calcium 20 MG Tablet PO (22:55)
[2018-02-02] MEDS: HYDROcodone Bitartrate/Apap 5/325 Tablet PO (02:40)
[2018-02-02 03:05] VITALS: BP 117/64; PULSE 83; RESP 16; TEMP 37.2; O2SAT 92
[2018-02-02 05:55] LABS: International Normalized Ratio 1.7; Prothrombin Time (Protime)PT. 19.8 SECONDS (11.7-14.9)
[2018-02-02] MEDS: Levothyroxine 100 MCG Tablet PO (05:57)
[2018-02-02 09:05] VITALS: BP 130/73; PULSE 77; RESP 18; TEMP 37; O2SAT 92
[2018-02-02] MEDS: Furosemide 40 MG Tablet 60 MG PO (09:21)
[2018-02-02] MEDS: Enoxaparin 150 MG/ML Syringe SC (09:22)
[2018-02-02] MEDS: Nystatin Ointment 1 APPLIC TOPICAL (09:23)
[2018-02-02] MEDS: Glucerna Shake 120 ML LIQUID PO (09:32)
[2018-02-02] MEDS: Lisinopril 20 MG Tablet PO (09:33)
[2018-02-02] MEDS: Famotidine 20 MG Tablet PO (09:33)
--- NOTE | 2018-02-02 11:30 | CASEMGMT ---
JORGE CANO in to discuss discharge plans with patient. Patient states that she is setup with [facility] for m[facility]p with [facility] and believes she also has PT/OT as well. Patient states that she also has aide services with [facility]. RN RACHAEL call Passport CM Laura Oreilly and updated regarding patient discharge and request for additional aide hours. JORGE CANO updated [facility] regarding patient discharge and updated that patient only has mcfp services at [facility]. RN RACHAEL requested that PT/OT eval and treat be added to services. JORGE CANO faxed discharge instructions to [facility].
--- NOTE | 2018-02-02 11:34 | DCINST_ITS ---
- Discharge Diagnoses Current Active Problems: Current Active and Chronic Problems Lymphedema (Acute) Leg wound, left (Acute) You will use the following diet at home:: Calorie/Carbohydrate Controlled ( specify 1200, 1400, etc) - 1800 amita/day, Cardiac - 2g sodium maximum daily Your food should be the consistency of: Regular Your liquids should be the consistency of: Regular/Thin Discharge Activity: Return to Normal Activity, - - apply lymphedema pumps daily to both legs as directed by wound care. Allergies/Adverse Reactions: Allergies No Known Allergies Allergy (Verified 01/23/18 11:38) Medications to take at Discharge Levothyroxine Sodium [Levoxyl] 100 mcg PO DAILY 09/18/14 Lisinopril [Zestril] 20 mg PO DAILY 09/18/14 Metformin HCl [Glucophage] 500 mg PO BIDCM 09/18/14 Warfarin [Coumadin] 1 mg PO TUTH 09/18/14 Furosemide 60 mg PO DAILY 03/21/16 Gabapentin [Neurontin] 300 mg PO QHS 09/29/16 Ondansetron [Zofran Odt] 4 mg PO Q8H PRN PRN #10 tab 09/20/17 Warfarin [Coumadin] 2 mg PO SUMOWEFRSA 09/24/17 Famotidine [Pepcid] 20 mg PO DAILY 09/27/17 Atorvastatin Calcium 20 mg PO QHS 01/30/18 Diphenoxylate/Atrop [Lomotil] 1 tab PO PRN PRN 01/30/18 Hydrocodone/Acetaminophen [Hydrocodone-Acetamin 5-325 mg] 1 tab PO Q8H PRN PRN 01/30/18 Nystatin 1 applic TP PRN PRN 01/30/18 Nystatin Powder [Mycostatin Powder] 1 applicatio TP PRN PRN 01/30/18 Primary Care Physician: Sebastián Smith MD [Primary Care Provider] - Please follow up with your Primary Care Physician in: 1 week Test Results: Test results from this visit will be discussed in further detail at your follow- up appointment, if applicable. Please Follow Up With: Lymphedema Clinic - call to confirm appointment When: Keep current appointment Proposed Discharge Date: 02/02/18
[2018-02-02 12:16] LABS: Bedside Glucose 158 mg/dL (70-110)
--- NOTE | 2018-02-02 13:08 | PCM.DC.SUM ---
<Gus Lundy - Last Filed: 02/02/18 13:08> Discharge Date and Diagnosis - Problem List Patient Problems: Active and Suspected Problems Lymphedema (Acute) Leg wound, left (Acute) Date of Admission: 01/30/18 Date of Discharge: 02/02/18 - Primary Discharge Diagnosis Active and Suspected Problems Worsening of Chronic Lymphedema 2/2 noncompliance with wound care, left lower extremity bulla unroofed Hx DVT/PE DMt2, subtherapeutic INR Intertrigo Debility 2/2 severe lymphedema Protein calorie malnutrition Morbid obesity HLD HTN Normocytic anemia - Secondary Discharge Diagnosis Chronic Problems Super obesity (Chronic) Venous stasis ulcers of both lower extremities (Chronic) Hypertension (Chronic) Hyperlipidemia (Chronic) DVT (deep venous thrombosis) (Chronic) Pulmonary embolism (Chronic) Neuropathic pain (Chronic) Nausea (Chronic) Hypomagnesemia (Chronic) Morbid obesity (Chronic) Hypothyroidism (Chronic) GERD (gastroesophageal reflux disease) (Chronic) Diabetes mellitus (Chronic) Chronic Lymphedema (Chronic) Unspecified open wound, left thigh, initial encounter (Chronic) Venous stasis ulcer of left lower leg with edema of left lower leg (Chronic) Lymphedema of both lower extremities (Chronic) Venous stasis ulcer of right lower leg with edema of right lower leg (Chronic) Cellulitis of leg, right (Chronic) Hospital Course and Treatment Imaging Results: RAD/Foot 2 Views IMPRESSION: Nonacute appearing left foot study with large amount of soft tissue suggesting large body habitus versus soft tissue edema. Clinical correlation recommended. Large posterior and mild plantar calcaneal spurs. Echo: Interpretation Summary Mild concentric left ventricular hypertrophy. The estimated ejection fraction is 65 %. Stage 1 diastolic dysfunction. Aneurysmal atrial septum. Mildly dilated aortic root. Consultations 01/30/18 17:50 Consult: Onc/Wound/cream ripener Routine Comment: Operations: None Procedures: 2-D Echocardiogram Summary of Care Provided: Physical exam on day of discharge: General: Resting comfortably NAD Psych: A/Ox3 normal affect HEENT: PEARRLA AT NC Neck: Supple NT CV: RRR no m/t/r/g/h Resp: CTA Abd: [id number] Soft NT no guarding or rigidity Ext: DP2+= no edema Skin: W/D normal turgor Lymph/Heme: No active bleeding or adenopathy Neuro: CN2-12 intact Hospital course: The patient is a 67 year old F with a hx of severe lymphedema with associated wounds, bullae, hx of HTN, HLD, DMt2, morbid obesity, who presented to the ER from home after being advised by home health that her wounds looked worse. She came to the ER and was found to have a large bullae that deroofed. She initially received a dose of vanco in the ER. There did not appear to be a cellulitis, she was nontoxic with no fever or leukocytosis. Her wounds were consistent with poorly treated lymphedema. Abx were discontinued. She was admitted [facility] floor. Her wounds were dressed. She was seen by PT and OT as she was debilitated at home. The patient could only take several steps with a walker, senior care was recommended. The patient declined a senior care. The patient had been noncompliant with her lymphedema pumps at home, she was supposed to use them for reportedly 6 hours per day, 3 hours per leg every day. She had only been using them about once per day. She had recently been discharged from the wound care center in [place] for noncompliance with her home wound care and lymphedema pumps. She had been advised to follow-up with the lymphedema clinic in [facility]. She has an appointment to meet with him later this month. I advised her to continue wound care at home. Home health care was reordered with physical therapy and home nursing. We advised her to continue using the lymphedema pumps and when not using the pumps to have daily dressings with Adaptic, ABD, and wrapped with Kerlix, and Kalia wraps. She should follow this until seen by her PCP for follow-up in 1 week who may further direct her wound care until she is seen by the lymphedema clinic. She is discharged home in stable condition with home health care. This patient was seen by Gus Lundy PA-C under the supervision of Doctor No. [] Discharge Diet: Low fat/ Low Cholesterol, 1800 Calorie Control Diet, 2000 mg Sodium Diet Discharge Activity: Return to Normal Activity, - - apply lymphedema pumps daily to both legs as directed by wound care. Home Medications: Medications to take at Discharge Levothyroxine Sodium [Levoxyl] 100 mcg PO DAILY 09/18/14 Lisinopril [Zestril] 20 mg PO DAILY 09/18/14 Metformin HCl [Glucophage] 500 mg PO BIDCM 09/18/14 Warfarin [Coumadin] 1 mg PO TUTH 09/18/14 Furosemide 60 mg PO DAILY 03/21/16 Gabapentin [Neurontin] 300 mg PO QHS 09/29/16 Ondansetron [Zofran Odt] 4 mg PO Q8H PRN PRN #10 tab 09/20/17 Warfarin [Coumadin] 2 mg PO SUMOWEFRSA 09/24/17 Famotidine [Pepcid] 20 mg PO DAILY 09/27/17 Atorvastatin Calcium 20 mg PO QHS 01/30/18 Diphenoxylate/Atrop [Lomotil] 1 tab PO PRN PRN 01/30/18 Hydrocodone/Acetaminophen [Hydrocodone-Acetamin 5-325 mg] 1 tab PO Q8H PRN PRN 01/30/18 Nystatin 1 applic TP PRN PRN 01/30/18 Nystatin Powder [Mycostatin Powder] 1 applicatio TP PRN PRN 01/30/18 Primary Care Physician: Sebastián Smith MD [Primary Care Provider] - Please follow up with your Primary Care Physician in: 1 week Please Follow Up With: Lymphedema Clinic - call to confirm appointment When: Keep current appointment Disposition: Home with Home Health Minutes spent on discharge:: 35 Patient Condition:: Stable Medical Necessity - Tobacco Use Smoking Status: Never smoker Tobacco Use: Non-smoker Meaningful Use Info Meaningful Use Diagnoses (Choose all that apply): None applicable <Wil Sarabia - Last Filed: 02/02/18 14:01> Discharge Date and Diagnosis - Primary Discharge Diagnosis Active and Suspected Problems Lymphedema (Acute) Leg wound, left (Acute) - Secondary Discharge Diagnosis Chronic Problems Super obesity (Chronic) Venous stasis ulcers of both lower extremities (Chronic) Hypertension (Chronic) Hyperlipidemia (Chronic) DVT (deep venous thrombosis) (Chronic) Pulmonary embolism (Chronic) Neuropathic pain (Chronic) Nausea (Chronic) Hypomagnesemia (Chronic) Morbid obesity (Chronic) Hypothyroidism (Chronic) GERD (gastroesophageal reflux disease) (Chronic) Diabetes mellitus (Chronic) Chronic Lymphedema (Chronic) Unspecified open wound, left thigh, initial encounter (Chronic) Venous stasis ulcer of left lower leg with edema of left lower leg (Chronic) Lymphedema of both lower extremities (Chronic) Venous stasis ulcer of right lower leg with edema of right lower leg (Chronic) Cellulitis of leg, right (Chronic) Hospital Course and Treatment Consultations 01/30/18 17:50 Consult: Onc/Wound/cream ripener Routine Comment: Operations: None Procedures: 2-D Echocardiogram Summary of Care Provided: Patient seen and examined independently. Data reviewed. I agree with the above note by the physician assistant mechanic. The patient is a 67 year old F presents with an unroofed bullae on her left lower extremity. Concern was for infection. Patient has to the. Patient has bruises been fired or deferred by wound care due to noncompliance and recommendation follow-up the lymphedema clinic. Patient was seen by her home health care who advised her to be admitted. Upon my evaluation I did not see any evidence of cellulitis rather than unroofed a large bullae of her left lower extremity due to her lymphedema. Patient was seen by physical therapy who did recommend skilled upon discharge, however, the patient declined insisting on going home with home care. Patient will continue with wound care at home with her home care patient is from follow-up edema clinic. Additionally patient instructed to use her lymphedema pumps as previously instructed. [] Discharge Diet: Low fat/ Low Cholesterol, 1800 Calorie Control Diet, 2000 mg Sodium Diet Discharge Activity: Return to Normal Activity, - Disposition: Home with Home Health Patient Condition:: Stable Meaningful Use Info Meaningful Use Diagnoses (Choose all that apply): None applicable Code Visit Inpatient E&M: 08457 Disch Hosp
--- NOTE | 2018-02-02 14:15 | CHAPLAIN ---
Type of Pastoral Visit _x__ Initial Visit ___ Follow-up Visit ___ On-call Visit ___ General Patient Visit ___ Spiritual Assessment ___ Family Conference ___ Bereavement ___ Rapid Response ___ Code Blue ___ Other (describe below) Pastoral Care Referral From _x__ Patient ___ Family ___ Nurse ___ Physician ___ Student Accounts Coordinator ___ Wicker Worker ___ Other (describe below) Sacrament/Intervention _x__ Active listening ___ Anointing ___ Episcopalian ___ Bereavement ___ Communion _x__ Palmira exploration ___ ___ Life review _x__ Prayer ___ Reconciliation ___ Sacrament of Sick ___ Supportive presence ___ Wedding ___ Other (describe below) Pastoral Comments
[2018-02-02 15:31] VITALS: BP 140/77; PULSE 93; RESP 20; TEMP 36.5; O2SAT 96
--- NOTE | 2018-02-02 15:58 | CASEMGMT ---
Social Work Note [facility] informed this worker that pt needs transportation set up. SW informed [employer] pathology secretary/transcriptionist of this. [employer] informed this worker that no bariatric wheelchair vans are available at this time. SW in to update of this. SW informed pt that transportation could be set up via cot but there would probably be a fee associated with transportation as pt could go by wheelchair van. Pt states that she will call someone to come get her. SW updated [facility] and pathology secretary/transcriptionist [employer] of this. Haydee Rutledge ACTUARY CLERK, CELL ATTENDANT HELPER
[2018-02-02 16:55] LABS: Bedside Glucose 137 mg/dL (70-110)
--- NOTE | 2018-02-04 15:49 | CASEMGMT ---
[facility] Discharge Follow-up Phone Call: KYLEAbdias: Carlos Strata: 4 Call Date: 02/04/18 Discharge Date: 02/02/18 Time of Call: 1550 Duration: 3 min Admitting Diagnosis: Left leg wound J[facility]GE [facility] completed follow-up phone call after recent hospitalization. Patient states that she is doing fine and [facility] has been out to see the patient. Patient states that she had no questions regarding discharge instructions. Patient states that she has a follow-up appt with PCP on Friday and Lymphedema clinic on Friday.
== END 2018-02-02 16:57 | disposition home health service (06) | DRG 607 ==
LOC: ED 14:32 → MS3 17:21
PROVIDERS: Physician Assistant; Emergency Provider Emergency Medicine; Family Provider Internal Medicine; PCP Internal Medicine
DX: I89.0 Lymphedema, not elsewhere classified (principal); R23.8 Other skin changes; B37.9 Candidiasis, unspecified; Z68.45 Body mass index [BMI] 70 or greater, adult; E44.0 Moderate protein-calorie malnutrition; E11.9 Type 2 diabetes mellitus without complications; I10 Essential (primary) hypertension; E78.5 Hyperlipidemia, unspecified; E03.9 Hypothyroidism, unspecified; K21.9 Gastro-esophageal reflux disease without esophagitis; E66.01 Morbid (severe) obesity due to excess calories; Z91.19 Patient's noncompliance with other medical treatment and regimen; Z79.84 Long term (current) use of oral hypoglycemic drugs; Z79.01 Long term (current) use of anticoagulants; Z79.899 Other long term (current) drug therapy; Z86.711 Personal history of pulmonary embolism; Z86.718 Personal history of other venous thrombosis and embolism
CPT/HCPCS: 36415; 73620; 80048; 82962; 84134; 85025; 85610; 87040; 93306; 97110; 97162; 97166; 97530; 97802; 99284; J7040; J7050; Q9957; A4216